=== PATIENT | female | born 2000 | race Caucasian/White ===

== ENCOUNTER 2020-07-14 21:53 | Emergency (ER) | payer OTHER ==
[2020-07-14] MEDS ORDERED: LIDOCAINE 1% 20 ML MDV ONE (22:50)
[2020-07-14 23:53] LABS: Absolute Lymphocytes (CBC) 1.7 K/uL (0.7-4.9); Basophils % 0.5 % (0-1.3); Hematocrit 37.9 % (36.0-45.0); Lymphocytes % 23.6 % (15.3-44.8); MPV 8.2 fL (7.6-11.3); RBC Red Blood Cell Count 4.07 M/uL (3.86-4.86)
[2020-07-15 00:20] LABS: Albumin 4.4 g/dL (3.4-5.0); Bilirubin Direct 0.1 mg/dL (0-0.2); Bilirubin Total 0.3 mg/dL (0.2-1.0); Potassium 3.7 mmol/L (3.5-5.1); Protein, Total 8.3 g/dL (6.4-8.2)
--- NOTE | 2020-07-15 00:55 | ER ---
Nurse's Notes [facility] Name: Danette Sosa Age: 19 yrs Sex: Female : 2000 Arrival Date: 07/14/2020 Time: 21:58 Bed 17 Private MD: Diagnosis: Right Breast Abscess Presentation: 07/14 22:04 Chief complaint: Patient states: I have a spot on the right side of my nipple piercing, sg states piercing was done about a month ago, reports today can feel swelling in the right armpit, denies drainage, reports having pain at the site. Coronavirus screen: Client denies travel out of the [place] in the last 14 days. At this time, the client does not indicate any symptoms associated with coronavirus-19. Ebola Screen: Patient negative for fever greater than or equal to 101.5 degrees Fahrenheit, and additional compatible Ebola Virus Disease symptoms Patient denies exposure to infectious person. Patient denies travel to an Ebola-affected area in the 21 days before illness onset. No symptoms or risks identified at this time. Initial Sepsis Screen: Does the patient meet any 2 criteria? No. Patient's initial sepsis screen is negative. Does the patient have a suspected source of infection? Yes: Skin breakdown/wound. Risk Assessment: Do you want to hurt yourself or someone else? Patient reports no desire to harm self or others. Onset of symptoms was July 14, 2020. Care prior to arrival: None. Transition of care: patient was not received from another setting of care. 22:04 Method Of Arrival: Ambulatory sg 22:04 Acuity: DANNY 4 sg Triage Assessment: 22:30 General: Appears in no apparent distress. comfortable, Behavior is calm, cooperative. 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 - Social history:: Smoking status: . Screenin:50 Abuse screen: Denies threats or abuse. Denies injuries from another. Nutritional mg2 screening: No deficits noted. Tuberculosis screening: No symptoms or risk factors identified. Fall Risk None identified. Assessment: 22:30 General: Appears in no apparent distress. comfortable, Behavior is calm, cooperative. mg2 Pain: Complains of pain in right breast and right armpit. Neuro: Level of Consciousness is awake, alert, obeys commands, Oriented to person, place, time, situation. Cardiovascular: Capillary refill < 3 seconds Patient's skin is warm and dry. Respiratory: Airway is patent Respiratory effort is even, unlabored, Respiratory pattern is regular, symmetrical. GI: No signs and/or symptoms were reported involving the gastrointestinal system. : No signs and/or symptoms were reported regarding the genitourinary system. EENT: No signs and/or symptoms were reported regarding the EENT system. Derm: Abscess located on right breast is quarter sized. Musculoskeletal: Circulation, motion, and sensation intact. Capillary refill < 3 seconds. Vital Signs: 22:04 BP 108 / 77; Pulse 88; Resp 16 S; Temp 97.2; Pulse Ox 100% on R/A; Weight 56.7 kg; sg Height 5 ft. 6 in. (167.64 cm); Pain 7/10; 22:30 BP 115 / 78; Pulse 81; Resp 18; Temp 98; Pulse Ox 100% on R/A; mg2 23:30 BP 118 / 78; Pulse 80; Resp 18; Temp 98; Pulse Ox 100% on R/A; mg2 07/15 00:30 BP 110 / 60; Pulse 80; Resp 18; Temp 98; Pulse Ox 100% on R/A; mg2 07/14 22:04 Body Mass Index 20.18 (56.70 kg, 167.64 cm) ED Course: 07/14 21:58 Patient arrived in ED. am2 22:04 Arm band placed on. sg 22:07 Triage completed. sg 22:09 Mesfin Patel MD is Attending Physician. 7 22:22 Wilmar Sullivan, JANELLE is Primary Nurse. mg2 22:50 Patient has correct armband on for positive identification. Door closed. mg2 22:50 No provider procedures requiring assistance completed. mg2 23:20 Inserted saline lock: 20 gauge in right antecubital area, using aseptic technique. mg2 Blood collected. 07/15 00:53 Chon Donato MD is Referral Physician. 7 01:06 IV discontinued, intact, bleeding controlled, No redness/swelling at site. Pressure mg2 dressing applied. Administered Medications: No medications were administered Outcome: 00:54 Discharge ordered by . mh7 01:06 Discharged to home ambulatory. mg2 01:06 Condition: good 01:06 Discharge instructions given to patient, Instructed on discharge instructions, follow up and referral plans. medication usage, Demonstrated understanding of instructions, follow-up care, medications, Prescriptions given X 2. 01:06 Patient left the ED. mg2 Signatures: Romel Dwyer RN RN Norma Marquez am2 Wilmar Sullivan RN RN mg2 Mesfin Patel MD MD 7 Corrections: (The following items were deleted from the chart) 07/14 23:39 22:50 Patient did not have IV access during this emergency room visit. mg2 mg2 07/15 02:12 07/14 00:30 BP 110 / 60; Pulse 80bpm; Resp 18bpm; Pulse Ox 100% RA; Temp 98F; mg2 mg2 07/15 02:07/14 20:40 General: Appears in no apparent distress. comfortable, Behavior is calm, mg2 cooperative, mg2 07/15 02:07/14 20:40 Pain: Complains of pain in right breast and right armpit mg2 mg2 07/15 02:07/14 20:40 Neuro: Level of Consciousness is awake, alert, obeys commands, Oriented to mg2 person, place, time, situation, mg2 07/15 02:07/14 20:40 Cardiovascular: Capillary refill < 3 seconds Patient's skin is warm and mg2 dry. mg2 07/15 02:07/14 20:40 Respiratory: Airway is patent Respiratory effort is even, unlabored, mg2 Respiratory pattern is regular, symmetrical, mg2 07/15 02:07/14 20:40 GI: No signs and/or symptoms were reported involving the gastrointestinal mg2 system. mg2 07/15 02:07/14 20:40 : No signs and/or symptoms were reported regarding the genitourinary mg2 system. mg2 07/15 02:07/14 20:40 EENT: No signs and/or symptoms were reported regarding the EENT system. mg2 mg2 07/15 02:07/14 20:40 Derm: Abscess located on right breast is quarter sized, mg2 mg2 07/15 02:07/14 20:40 Musculoskeletal: Circulation, motion, and sensation intact. Capillary mg2 refill < 3 seconds, mg2 07/15 02:07/14 21:30 Reassessment: Patient appears in no apparent distress at this time. Patient mg2 and/or family updated on plan of care and expected duration. Pain level reassessed. Patient is alert, oriented x 3, equal unlabored respirations, skin warm/dry/pink. mg2 07/15 02:07/14 22:30 Reassessment: Patient appears in no apparent distress at this time. Patient mg2 and/or family updated on plan of care and expected duration. Pain level reassessed. Patient is alert, oriented x 3, equal unlabored respirations, skin warm/dry/pink. mg2
--- NOTE | 2020-07-15 00:55 | EDPHYS ---
Physician Documentation [facility] Name: Danette Sosa Age: 19 yrs Sex: Female : 2000 Arrival Date: 07/14/2020 Time: 21:58 Bed 17 Private MD: ED Physician Mesfin Patel HPI: 07/14 23:41 This 19 yrs old Female presents to ER via Ambulatory with complaints of mh7 Breast Lump. 23:41 the patient presents with a swollen area of the right breast nipple. Description: mh7 erythematous, fluctuant, swollen. Onset: The symptoms/episode began/occurred 4 day(s) ago. Possible cause(s): unknown. Associated signs and symptoms: Pertinent negatives: discharge, drainage, foreign body sensation, fever, headache, nausea, shortness of breath, vomiting. Modifying factors: the symptoms are alleviated by nothing, the symptoms are aggravated by pressure, squeezing the lesion and expressing the contents, touching. Severity of symptoms: At their worst the symptoms were moderate, yesterday, in the emergency department the symptoms are unchanged. Patient states pain, swelling, redness to right breast nipple area for 4 days. States that she had nipple piercing placed one month ago but no complications. Denies any fever, nausea, vomiting, discharge.. 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 - Social history:: Smoking status: . ROS: 23:41 Constitutional: Negative for fever, chills, and weight loss, Eyes: Negative for injury, mh7 pain, redness, and discharge, ENT: Negative for injury, pain, and discharge, Neck: Negative for injury, pain, and swelling, Cardiovascular: Negative for chest pain, palpitations, and edema, Respiratory: Negative for shortness of breath, cough, wheezing, and pleuritic chest pain, Abdomen/GI: Negative for abdominal pain, nausea, vomiting, diarrhea, and constipation, Back: Negative for injury and pain, : Negative for injury, bleeding, discharge, and swelling, MS/Extremity: Negative for injury and deformity, Neuro: Negative for headache, weakness, numbness, tingling, and seizure, Psych: Negative for depression, anxiety, suicide ideation, homicidal ideation, and hallucinations, Allergy/Immunology: Negative for hives, rash, and allergies, Endocrine: Negative for neck swelling, polydipsia, polyuria, polyphagia, and marked weight changes, Hematologic/Lymphatic: Negative for swollen nodes, abnormal bleeding, and unusual bruising. Exam: 23:41 Constitutional: This is a well developed, well nourished patient who is awake, alert, mh7 and in no acute distress. Head/Face: Normocephalic, atraumatic. Eyes: Pupils equal round and reactive to light, extra-ocular motions intact. Lids and lashes normal. Conjunctiva and sclera are non-icteric and not injected. Cornea within normal limits. Periorbital areas with no swelling, redness, or edema. Neck: Trachea midline, no thyromegaly or masses palpated, and no cervical lymphadenopathy. Supple, full range of motion without nuchal rigidity, or vertebral point tenderness. No Meningismus. 23:41 Chest/axilla: Inspection: Palpation: is normal, Axilla: lymphadenopathy, that is small, in the left axilla. Vital Signs: 22:04 BP 108 / 77; Pulse 88; Resp 16 S; Temp 97.2; Pulse Ox 100% on R/A; Weight 56.7 kg; sg Height 5 ft. 6 in. (167.64 cm); Pain 7/10; 22:30 BP 115 / 78; Pulse 81; Resp 18; Temp 98; Pulse Ox 100% on R/A; mg2 23:30 BP 118 / 78; Pulse 80; Resp 18; Temp 98; Pulse Ox 100% on R/A; mg2 07/15 00:30 BP 110 / 60; Pulse 80; Resp 18; Temp 98; Pulse Ox 100% on R/A; mg2 07/14 22:04 Body Mass Index 20.18 (56.70 kg, 167.64 cm) MDM: 07/14 22:50 Patient medically screened. [facility] 07/15 00:51 Differential diagnosis: abscess, allergic reaction, cellulitis, insect bite. Data [facility] reviewed: vital signs, nurses notes, lab test result(s), CBC, electrolytes. Data interpreted: Pulse oximetry: on room air is 100 %. Interpretation: normal. Counseling: I had a detailed discussion with the patient and/or guardian regarding: the historical points, exam findings, and any diagnostic results supporting the discharge/admit diagnosis, lab results, the need for outpatient follow up, to return to the emergency department if symptoms worsen or persist or if there are any questions or concerns that arise at home. Physician consultation: Chon Donato MD regarding patient's condition, and will see patient in office. 07/14 22:55 Order name: CBC with Diff [facility] 07/14 22:55 Order name: Basic Metabolic Panel [facility] 07/14 22:55 Order name: LFT's [facility] 07/14 22:56 Order name: Blood Culture Adult (2) [facility] 07/14 22:56 Order name: CBC with Automated Diff; Complete Time: 00:10 EDMS 07/14 22:56 Order name: Basic Metabolic Panel; Complete Time: 00:46 EDMS 07/14 22:56 Order name: Saline Lock; Complete Time: 23:38 [facility] 07/14 22:56 Order name: Liver (Hepatic) Function; Complete Time: 00:46 EDMS Administered Medications: No medications were administered Disposition: 07/15/20 00:54 Discharged to Home. Impression: Right Breast Abscess. - Condition is Stable. - Discharge Instructions: Skin Abscess, [id number]. - Prescriptions for Keflex 500 mg Oral Capsule - take 1 capsule by ORAL route every 6 hours for 10 days; 40 capsule. Bactrim DS 800- 160 mg Oral Tablet - take 1 tablet by ORAL route every 12 hours for 10 days; 20 tablet. - Work release form, Medication Reconciliation Form, Thank You Letter, Antibiotic Education, Prescription Opioid Use form. - Follow up: Chon Donato MD; When: Tomorrow; Reason: Worsening of condition, Recheck today's complaints. - Problem is new. - Symptoms are unchanged. Signatures: [facility] Romel Dwyer RN RN Wilmar Sullivan RN RN mg2 Mesfin Patel MD MD mh7 Corrections: (The following items were deleted from the chart) 01:06 00:54 07/15/2020 00:54 Discharged to Home. Impression: Right Breast Abscess. Condition mg2 is Stable. Forms are Medication Reconciliation Form, Thank You Letter, Antibiotic Education, Prescription Opioid Use. Follow up: Dr. Chon Donato; When: Tomorrow; Reason: Worsening of condition, Recheck today's complaints. Problem is new. Symptoms are unchanged. mh7
[2020-07-15 03:47] VITALS: BP 108/77; TEMP 97.2; O2SAT 100
== END 2020-07-15 01:06 | disposition home or self-care (01) ==
LOC: SUPCPDRO 21:53 → ER 21:53
DX: N61.1 Abscess of the breast and nipple (principal)
CPT/HCPCS: 36415; 80048; 80076; 85025; 87040; 99283

== ENCOUNTER 2020-07-15 12:21 | Inpatient (IN) | payer OTHER ==
--- OUTSIDE RECORDS SUMMARY | 2020-07-15 12:39 | XMS REPORT | Continuity of Care Document ---
:[address] [facility] t Address [address] [place] [address] Dr. R[address]. [address] [place] [address] Care Team Providers Name Role Phone DR ADELINE CAREY Attending Clinician Unavailable DR ADELINE CAREY Admitting Clinician Unavailable Problems This patient has no known problems. Allergies, Adverse Reactions, Alerts This patient has no known allergies or adverse reactions. Social History Smoking Status Start Date Stop Date Source Former Smoker [place] [facility] Medications Ordered Filled Start Stop Current Ordering Indication Dosage Frequency Signature Comments Components Source Medication Medication Date Date Medication? Clinician (SIG) Name Name Provera 10 Provera 10 No 1 Q1D Provera 10 [place] mg tablet mg tablet mg tablet da Take 1 Take 1 Take 1 [facility] tablet tablet tablet al every day every day every day Health by oral by oral by oral Outrea c route for route for route for h 14 days. 14 days. 14 days. Pro gram Immunizations Ordered Immunization Filled Immunization Date Status Commen ts Source Name Name influenza, influenza, 2018-08-12 Completed [place] injectable, injectable, 16:43:17 [facility] quadrivalent quadrivalent Outreach P rogram Tdap Tdap 2018-07-02 Completed [place] 15:42:58 [facility] Progr am Vital Signs Vital Name Observation Time Observation Value Comments Source BP Diastolic 2020-05-09 00:00:00 71 mm[Hg] [place] [facility] Height 2020-05-09 00:00:00 67 [in_i] [place] [facility] BMI (Body Mass 2020-05-09 00:00:00 21 kg/m2 [place] [facility] Index) [facility] BP Systolic 2020-05-09 00:00:00 117 mm[Hg] [place] [facility] Body Weight 2020-05-09 00:00:00 134.4 [lb_av] [place] [facility] BP Diastolic 2019-10-07 00:00:00 70 mm[Hg] [facility] Height 2019-10-07 00:00:00 67 [in_i] [facility] BMI (Body Mass 2019-10-07 00:00:00 21 kg/m2 [place] [facility] Index) [facility] BP Systolic 2019-10-07 00:00:00 124 mm[Hg] [facility] [facility] Body Weight 2019-10-07 00:00:00 133.8 [lb_av] [place] [facility] Procedures Procedure Date / Time Performed Performing Clinician Sourmarkel e US, transvaginal 2020-05-09 00:00:00 [place] [facility] Delivery 2018-08-19 00:00:00 [place] [facility] Plan of Care Planned Activity Planned Date Details Comments Source Diagnostic Test 2020-05-09 test, [place] [facility] Pending 00:00:00 urine [code = Health Outreac h test, Program urine] Diagnostic Test 2020-05-09 bacterial vaginosis [place] [facility] Pending 00:00:00 + vaginitis panel, [facility] vaginal [code = Program bacterial vaginosis + vaginitis panel, vaginal] Diagnostic Test 2020-05-09 CBC w/ auto diff [place] [facility] Pending 00:00:00 [code = CBC w/ auto Health O utreach diff] Program Diagnostic Test 2020-05-09 TSH + free T4, [place] [facility] Pending 00:00:00 serum [code = TSH + Health O utreach free T4, serum] Program Diagnostic Test 2020-05-09 testosterone, free [place] [facility] Pending 00:00:00 + total, serum Health Outrea ch [code = Program testosterone, free + total, serum] Diagnostic Test 2020-05-09 insulin, serum [place] [facility] Pending 00:00:00 [code = insulin, Health Outr each serum] Program Future Appointment 2020-10-07 Mayelin Maldonado, [address] [place] [facility] 00:00:00 Ritchiee F N; , [place] [address] Program Encounters Start End Encounter Admission Attending Care Care Encounter Source Date/Time Date/Time Type Type Clinicians Facility Department ID 2020-05-09 2020-05-09 Mayelin SIMON [place] - [id number] [facility] 00:00:00 00:00:00 Obdulia Rodriguez, [facility] N[facility]ATH: [address] [facility] [address], 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 2018-08-18 2018-08-21 [facility] 1000 [id number] [place] 18:45:00 13:10:00 JOSSE [facility] Results Test Description Test Time Test Comments Results Result Comments Source CBC (INCLUDES AUTOMATED DIFFERENTIAL)* 2018-08-20 06:58:00 Test Item Value Reference Range Interpretation Comme nts WBC (test code = WBC) 11.9 10\S\3/uL 4.5-13.0 RBC (test code = RBC) 3.05 10\S\6/uL 4.30-5.70 L HGB (test code = HBG) 10.2 g/dL 12.0-15.5 L HCT (test code = HCT) 29.3 % 35.0-44.0 L MCV (test code = MCV) 96.1 fL 81.0-99.0 MCH (test code = MCH) 33.4 pg 27.0-31.0 H MCHC (test code = MCHC) 34.8 g/dL 32.0-36.0 RDW (test code = RDW) 13.3 % 11.5-14.5 PLT (test code = PLT) 182 10\S\3/uL 130-400 MPV (test code = MPV) 10.1 fL 9.4-12.4 NEUTROP # (test code = NE#) 10.2 10\S\3/uL 1.6-8.0 H LYMPH # (test code = LY#) 0.8 10\S\3/uL 1.1-3.5 L MONOCYTE # (test code = MO#) 0.7 10\S\3/uL 0.0-1.1 EOSINOPH # (test code = EO#) 0.0 10\S\3/uL 0.0-0.7 BASOPHIL # (test code = BA#) 0.0 10\S\3/uL 0.0-0.3 IG # (test code = IG#) 0.05 10\S\3/uL 0.00-0.06 NRBC # (test code = NRBC#) 0.00 10\S\3/uL 0.00-0.01 NEUTROPH % (test code = NE%) 86.3 % 35.0-73.0 H LYMPH % (test code = LY%) 6.8 % 20.0-55.0 L MONO % (test code = MO%) 6.2 % 2.5-10.0 EOSINOPH % (test code = EO%) 0.1 % 0.0-5.0 BASOPHIL % (test code = BA%) 0.2 % 0.0-2.0 IG % (test code = IG%) 0.4 % 0.0-0.8 NRBC% (test code = NRBC%) 0.0 % 0.0-0.2 MANDIFF (test code = WMDIFF) NO NO RBC MORPH (test code = WRBCMOR) NORMAL SYPHILIS SCREENING WW2018-08-19 05:57:00 Test Item Value Reference Range Interpretation Comments T PALLIDUM AB (test NON-REACTIVE NON-REACTIVE code = SYPHINT) SYPHC (test code = RPR test has been SYPHC) updated to Treponemal Immunoassay. Interpretation of results is similar RUBELLA AB IGG WW2018-08-19 05:57:00 Test Item Value Reference Range Interpretation Comments RUB AB IGG INTERP (test code = IMMUNE NON-IMMUNE A RBABINT) HIV *WW*2018-08-19 05:31:00 Test Item Value Reference Range Interpretation Comments HIV-1,2 and p24 (test code = NON-REACTIVE NON-REACTIVE CHIV) HEPATITIS B SURFACE ANTIGEN *WW*2018-08-19 05:26:00 Test Item Value Reference Range Interpretation Comments HBSAG (test code = HBSAG) NON-REACTIVE NON-REACTIVE CBC (INCLUDES AUTOMATED DIFFERENTIAL)*[id number] 20:24:00 Test Item Value Reference Range Interpretation Comments WBC (test code = WBC) 11.1 10\S\3/uL 4.5-13.0 RBC (test code = RBC) 3.86 10\S\6/uL 4.30-5.70 L HGB (test code = HBG) 12.7 g/dL 12.0-15.5 HCT (test code = HCT) 36.4 % 35.0-44.0 MCV (test code = MCV) 94.3 fL 81.0-99.0 MCH (test code = MCH) 32.9 pg 27.0-31.0 H MCHC (test code = MCHC) 34.9 g/dL 32.0-36.0 RDW (test code = RDW) 12.9 % 11.5-14.5 PLT (test code = PLT) 235 10\S\3/uL 130-400 MPV (test code = MPV) 10.0 fL 9.4-12.4 NEUTROP # (test code = NE#) 8.5 10\S\3/uL 1.6-8.0 H LYMPH # (test code = LY#) 1.7 10\S\3/uL 1.1-3.5 MONOCYTE # (test code = MO#) 0.7 10\S\3/uL 0.0-1.1 EOSINOPH # (test code = EO#) 0.1 10\S\3/uL 0.0-0.7 BASOPHIL # (test code = BA#) 0.0 10\S\3/uL 0.0-0.3 IG # (test code = IG#) 0.06 10\S\3/uL 0.00-0.06 NRBC # (test code = NRBC#) 0.00 10\S\3/uL 0.00-0.01 NEUTROPH % (test code = NE%) 77.0 % 35.0-73.0 H LYMPH % (test code = LY%) 15.3 % 20.0-55.0 L MONO % (test code = MO%) 6.2 % 2.5-10.0 EOSINOPH % (test code = EO%) 0.7 % 0.0-5.0 BASOPHIL % (test code = BA%) 0.3 % 0.0-2.0 IG % (test code = IG%) 0.5 % 0.0-0.8 NRBC% (test code = NRBC%) 0.0 % 0.0-0.2 MANDIFF (test code = WMDIFF) NO NO RBC MORPH (test code = NORMAL WRBCMOR)
--- OUTSIDE RECORDS SUMMARY | 2020-07-15 12:39 | XMS REPORT | Encounter Summary ---
:2000 Author Reason for Visit problem visit Instructions 1. Abnormal uterine bleeding test, urine bacterial vaginosis + vagi nitis panel, vaginal US, transvaginal CBC w/ auto diff TSH + free T4, serum testosterone, free + total , serum insulin, serum Provera 10 mg tablet Discussion Note Pelvic exam performed. Nuswab obtai aditi. Revd possible causes of DUB. Will drawn labs today and also order TVUS. iN HOUSE upt neg. Will send script for Provera 10 mg 1 po qd x 14 days. Will notify patient w ith results and poc. RTC prn. ml Patient educational handouts: No information available. Plan of Care Reminders Provider Appointments [facility] on or around Sc jeremy Obdulia Exam 10/07/2020 JORDAN Maldonado Lab 05/09/2020 [facility] [employer] [facility] Test, Urine Bacterial 05/09/2020 [facility] Vaginosis + Vaginitis Panel, Vaginal CBC W/ Auto 05/09/2020 [facility] Diff TSH + Free T4, 05/09/2020 [facility] Serum Testosterone, 05/09/2020 [facility] Free + Total, Serum Insulin, Serum 05/09/2020 [facility] Referral None recorded. Procedures None recorded. Surgeries None recorded. Imaging US, 05/09/2020 [facility] (Scheduli ng) Medications Name Start Date Provera 10 mg tablet Take 1 tablet every day by oral route for 14 days. Medications Administered None recorded. Vitals Height Weight BMI Blood Pressure 5 ft 7 in 134.4 lbs 21 kg/m2 117/71 mm[Hg] Results Lab Results None recorded. 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 History of Present Illness Abnormal Bleeding Reported By: Patient HPI: Onset/Timing: irregular. Robin lity: moderate Note: <p>Patient is 19 yo female in c/o vaginal bleeding since April 26. States occasional blood clots. States periods have always been regular and normal flow. Is not on any BC at this time. Neg PMH. Last pap- 2018. ml</p> Review of Systems None recorded. Physical Exam Brief Pelvic Exam Reported By: Patient Skin: Appearance: no rashes, no le sions Female Genitalia: Vulva: no masses, no atrophy , no lesions. Vagina: no tenderness, no erythema, no abnormal vagina l discharge, no vesicle(s) or ulcers, no cystocele, no rectocele, normal atrophy; blood noted in vault. ml. Cervix: grossly normal, no discharge, no cervical motion tenderness. Uterus: normal s ize, normal shape, midline, no uterine prolapse, mobile, non-tender . Bladder/Urethra: normal meatus, no urethral discharge, no ureth ral mass, bladder non distended. Adnexa/Parametria: no parame trial tenderness, no parametrial mass, no adnexal tenderness, no ov gerardo mass
[2020-07-15] MEDS ORDERED: ONDANSETRON 4 MG/2 ML VIAL IV PRN (13:09)
[2020-07-15 13:16] VITALS: BMI 20.5
--- NOTE | 2020-07-15 14:38 | P.HP ---
Certification for Inpatient Patient admitted to: Inpatient With expected LOS: >2 Midnights Patient will require the following post-hospital care: None Practitioner: I am a practitioner with admitting privileges, knowledge of patient current condition, hospital course, and medical plan of care. Services: Services provided to patient in accordance with Admission requirements found in Title 42 Section 412.3 of the Code of Federal Regulations Patient History Date of Service: 07/15/20 Primary Care Provider: Shelby Taylor Reason for admission: Breast abcess History of Present Illness: Patient is a pleasant young woman who establish care today She had a piercing of her right breath 2 months ago. She started having pain and swellling. She had a large abcess forming and the patient was having chilled. she went to the ER yesterday. Had a normal wbc of 7.4 She was started on antibiotics and told to follow up with a surgeon. However as she needed a referral she needed a local PCP and was referred to us. She was Examed by Mr Courtney Taylor. She called me into the room The patient had a 2 cm stent just lateral to the nipple. She had not picked up the antibiotics. Considering the size of the abcess. I felt it better to admit the patient for incison and drainage. Allergies No Known Allergies Allergy (Verified 07/15/20 13:21) Home Medications: NK [No Home Meds] 07/15/20 - Past Medical/Surgical History Has patient received pneumonia vaccine in the past: Yes Review of Systems 10-point ROS is otherwise unremarkable General: Chills Integumentary: Other (abcess of the right nipple) Physical Examination - Vital Signs Temperature: 97.7 F Blood Pressure: 118/70 Pulse: 99 Respirations: 16 Pulse Ox (%): 99 - Physical Exam General: Alert, In no apparent distress HEENT: Atraumatic, PERRLA, Mucous membr. moist/pink, EOMI, Sclerae nonicteric Neck: Supple, 2+ carotid pulse no bruit, No LAD, Without JVD or thyroid abnormality Respiratory: Clear to auscultation bilaterally, Normal air movement Cardiovascular: Regular rate/rhythm, Normal S1 S2 Gastrointestinal: Normal bowel sounds, No tenderness Musculoskeletal: No tenderness Integumentary: No rashes, Tenderness/swelling (of the right nipple, lateral areolar) Neurological: Normal gait, Normal speech, Normal strength at 5/5 x4 extr, Normal tone, Normal affect Lymphatics: Axilla lymphadenopathy (right axilla) - Studies Laboratory Data (last 24 hrs) 07/15/20 13:30: Sodium Cancelled, Potassium Cancelled, BUN Cancelled, Creatinine Cancelled, Glucose Cancelled 07/15/20 13:10: PT Cancelled, INR Cancelled Assessment and Plan - Problems (Diagnosis) (1) Breast abscess of female Current Visit: Yes Status: Acute Plan: admit to the hospital. Will start the patient on iv fluids and vancomycin as I am worried about MRSA. Dr. Thornton will take the patient to the OR in the morning. Will check coagulation studies and test. Will need wound cultures and the blood cultures taken yesterday in the ER to decide which antibiotic to keep the patient on for discharge Most likely will need to stay for at least 48 hours for the cultures to return Discharge Plan: Home Plan to discharge in: 48 Hours - Advance Directives Does patient have a Living Will: No Does patient have a Durable POA for Healthcare: No - Code Status/Comfort Care Code Status Assessed: No Code Status: Full Code Physician Review: Patient Assessed, Agree with Above Assessment and Plan Critical Care: No Time Spent Managing Pts Care (In Minutes): 70
[2020-07-15] MEDS: TRAMADOL 37.5mg/APAP 325mg PER TAB PO SCH ×2 (14:56→20:29)
[2020-07-15] MEDS: NA CHLORIDE 0.9% 1,000 ML IV SCH (14:56)
[2020-07-15 15:15] LABS: Protime INR 1.08
[2020-07-15 15:19] LABS: Potassium 4.9 mmol/L (3.5-5.1)
[2020-07-15] MEDS: VANCOMYCIN/NS 1 gm 1 GM/250 ML BAG IVPB SCH (15:24)
[2020-07-15] MEDS: ENOXAPARIN 40 MG/0.4 ML SQ SCH (16:55)
[2020-07-15] MEDS ORDERED: clonazePAM 1 MG TAB PO PRN (17:33)
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
[2020-07-15] MEDS: BUPROPION HCL XL 150 MG TAB PO SCH (20:29)
[2020-07-15] MEDS ORDERED: BUPROPRION HCL S.R. 150MG TAB PO SCH (21:00)
[2020-07-16] MEDS: VANCOMYCIN/NS 1 gm 1 GM/250 ML BAG IVPB SCH ×2 (01:27→13:51)
[2020-07-16] MEDS: TRAMADOL 37.5mg/APAP 325mg PER TAB PO SCH ×4 (01:27→18:44)
[2020-07-16] MEDS: NA CHLORIDE 0.9% 1,000 ML IV SCH ×2 (05:18→15:26)
[2020-07-16 06:21] LABS: Absolute Lymphocytes (CBC) 1.6 K/uL (0.7-4.9); Basophils % 0.4 % (0-1.3); Hematocrit 34.9 % (36.0-45.0); Lymphocytes % 22.7 % (15.3-44.8); MPV 7.7 fL (7.6-11.3); RBC Red Blood Cell Count 3.74 M/uL (3.86-4.86)
[2020-07-16] MEDS ORDERED: clonazePAM 0.5 MG TAB PO PRN (08:56)
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
[2020-07-16] MEDS ORDERED: propofoL 200 MG/20 ML VIAL IV ONE (12:22)
[2020-07-16] MEDS ORDERED: LIDOCAINE 2% MPF 5 ML VIAL ONE (12:23)
[2020-07-16] MEDS ORDERED: FENTANYL CITR 100 MCG/2 ML ONE (12:23)
[2020-07-16] MEDS ORDERED: BUPIVACAINE 0.25% PF 10 ML VIAL ONE (12:27)
[2020-07-16] MEDS: BUPIVACA 0.25%/EPI 0.0005%/PF 30 ML VIAL ONE ×2 (12:53→12:56)
[2020-07-16] MEDS ORDERED: KETOROLAC 30 MG/ML INJ ONE (12:55)
[2020-07-16] MEDS ORDERED: dexAMETHasone 10 MG/ML VIAL ONE (12:55)
--- NOTE | 2020-07-16 13:03 | P.OP ---
Preoperative diagnosis: Right Breast Retroaerolar Abscess Postoperative diagnosis: Right Breast Retroaerolar Abscess Primary procedure: Incision & Drainage of Right Breast Retroaerolar Abscess Secondary procedure: Debridement of Necrotic Tissue Anesthesia: GETA + Local Estimated blood loss: <5c Specimen: Cultures and Debridement Tissue Findings: multiloculated abscess ~4cm round Complications: None Transferred to: Recovery Room Condition: Good
--- NOTE | 2020-07-16 13:29 | OP ---
Date of Procedure: 07/16/2020 Surgeon: Monster Thornton MD, Preoperative Diagnosis: Right breast retroareolar abscess. Postoperative Diagnosis: Right breast retroareolar abscess. Procedure Performed: 1.Incision and drainage, right breast retroareolar abscess. 2.Excisional debridement of necrotic tissue. Anesthesia: General endotracheal plus local with 0.25% Marcaine with epinephrine. Estimated Blood Loss: Less than 5 mL. Specimen: Cultures and debridement tissues. Findings: Multiloculated abscess approximately 4 cm round in the retroareolar position on the latera l aspect slightly listing in that direction. Complications: None. Transferred to recovery room in good condition. Procedure In Detail: After informed consent was obtained, the patient was brought to the operating r oom, prepped and draped in the usual sterile fashion. After adequate anesthesia was achieved, a line ar incision of a radial type was made at the lateral aspect of the nipple-areolar complex extending t oward the nipple, immediately encountered with a large amount of purulent abscess. This was cultured for both aerobic, anaerobic, speciation at this time. The abscess cavity was opened in its entirety , digitized and the area was cleansed out at this point, breaking up multiple loculations, is approxi mately 4 cm round abscess in this position. Necrotic nipple-areolar tissue was debrided sharply usin g tenotomy scissors. The area was copiously irrigated multiple times and then hemostasis is achieved with electrocautery. It was copiously irrigated 1 last time, dried and packed with quarter-inch iod oform packing. Sterile dressing was placed over top. The patient tolerated the procedure well witho ut evidence of complication, and transferred to PACU in good condition. All counts were correct at t he end of the case. TK/MODL Voice ID: [id number] Report ID: [id number]
--- NOTE | 2020-07-16 14:09 | CON ---
Date of Consultation: 07/15/2020 Brief History Of Present Illness: The patient is a pleasant young woman who presents to the hospital with complaints of right breast abscess. She had a right breast nipple piercing approximately 2 mon ths ago and did not initially notice any issues with this. However, she noted significant increased swelling, pain, tenderness to the right nipple and areolar complex over the past several days. It go t progressively worse and was not responsive to cleansing. She did not take her piercing out as it w as too tender and painful to try to attempt so. She has never had similar episodes before in the [facility] t. No sick contacts. No recent travel. She went to see Dr. Maloney in his clinic who determined she needed to be admitted for IV antibiotics and my consultation for wound care and surgical intervention . Past Medical History: Negative. Past Surgical History: Negative. Allergies: NO KNOWN DRUG ALLERGIES. Medications: None. Social History: She denies smoking or recreational drug use. She drinks alcohol intermittently. 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 Review of Systems: Ten-point review of systems other than HPI, denies. Physical Examination: Vital Signs: At the time of examination, her BMI is 20.5. Her blood pressure was 108/63, pulse 74, respiratory rate 16, temperature 98.1. General: She is awake, alert, oriented. Psychiatric: She is appropriate, conversive. HEENT: She is normocephalic. Sclerae anicteric. Mucous membranes are moist. Oropharynx clear. Neck: Supple. No JVD. Chest: Normal expansion and excursion. Focused examination of the chest area, she has bilateral nipple piercings with a right areolar and re tro area areolar abscess. It is fluctuant, tender to palpation. There are some cellulitic changes e xtending beyond the nipple-areolar complex. There is a piercing in place, which I have removed. The re is no drainage at this point. The area is at the approximately the lateral aspect of the breast i n the retroareolar position. On palpation of the axilla, I feel a large tender dominant rubbery soft , mobile lymph node in the right axilla likely reactive by examination. Abdomen: Soft. Extremities: No clubbing, cyanosis, edema. Skin: Warm and dry. Laboratory Data: Reveals a white blood cell count of 7.0, hemoglobin 12.0, hematocrit 34.9, platelet count 245, neutrophils 65%. Her PT is 12.7, INR 1.08, PTT 29.5. Sodium 141, potassium 4.9, chlorid e 109, carbon dioxide 28, BUN 8, creatinine 0.8, glucose is 84. Urine test was negative. She did not have any imaging. Assessment And Plan: This is a 19-year-old female who comes in with a right nipple-areolar complex a bscess. 1.IV fluid hydration. 2.Antibiotic coverage. 3.I have explained risks, benefits, and alternatives of incision and drainage of this right breast a bscess, including but not limited to bleeding, infection, damage to surrounding tissue, need for furt her operative procedures and numbness and nerve injury to the nipple-areolar complex and difficulty w ith sensation going forward. The patient agrees to proceed as indicated. All questions answered. Thank you for this interesting consult. JANETT/DANIEL Voice ID: [id number] Report ID: [id number]
[2020-07-16] MEDS: ENOXAPARIN 40 MG/0.4 ML SQ SCH (16:15)
[2020-07-16] MEDS ORDERED: MORPHINE 2 MG/ML SYR IV PRN (18:32)
[2020-07-16] MEDS: BUPROPION HCL XL 150 MG TAB PO SCH (20:00)
[2020-07-17] MEDS: TRAMADOL 37.5mg/APAP 325mg PER TAB PO SCH ×3 (00:17→12:00)
[2020-07-17] MEDS: VANCOMYCIN/NS 1 gm 1 GM/250 ML BAG IVPB SCH (01:28)
[2020-07-17 05:48] LABS: Absolute Lymphocytes (CBC) 0.9 K/uL (0.7-4.9); Basophils % 0.1 % (0-1.3); Hematocrit 33.1 % (36.0-45.0); Lymphocytes % 8.7 % (15.3-44.8); MPV 7.8 fL (7.6-11.3); RBC Red Blood Cell Count 3.59 M/uL (3.86-4.86)
[2020-07-17] MEDS: NA CHLORIDE 0.9% 1,000 ML IV SCH ×2 (06:00→08:38)
[2020-07-17 08:30] VITALS: TEMP 98
--- NOTE | 2020-07-17 10:08 | P.DS ---
Admission Date: 07/15/20 Discharge Date: 07/17/20 Primary Care Provider: Shelby Taylor Disposition: ROUTINE DISCHARGE Discharge Condition: GOOD Reason for Admission: Breast abcess - Problems (1) Breast abscess of female Current Visit: Yes Status: Acute (2) Anxiety Current Visit: Yes Status: Acute Brief History of Present Illness: Patient is a pleasant young woman who establish care today She had a piercing of her right breath 2 months ago. She started having pain and swellling. She had a large abcess forming and the patient was having chilled. she went to the ER yesterday. Had a normal wbc of 7.4 She was started on antibiotics and told to follow up with a surgeon. However as she needed a referral she needed a local PCP and was referred to us. She was Examed by Courtney Brandon. She called me into the room The patient had a 2 cm stent just lateral to the nipple. She had not picked up the antibiotics. Considering the size of the abcess. I felt it better to admit the patient for incison and drainage. Hospital Course: Lia was admitted for a breast abcess. She had I&D with Dr. Thornton. She is doing well. GM +ve cocci coagulase postive. The patient is doing well this morning. Will discharge her home. Follow up with Mrs Taylor and [facility] Vital Signs/Physical Exam: Temp Pulse Resp BP Pulse Ox 98 F 76 20 84/40 L 98 07/17/20 08:00 07/17/20 08:00 07/17/20 08:00 07/17/20 08:00 07/17/20 08:00 General: Alert, In no apparent distress HEENT: Atraumatic, PERRLA, EOMI Neck: Supple, JVD not distended Respiratory: Clear to auscultation bilaterally, Normal air movement Cardiovascular: Regular rate/rhythm, Normal S1 S2 Gastrointestinal: Normal bowel sounds, No tenderness Musculoskeletal: No tenderness Integumentary: No rashes Neurological: Normal speech, Normal tone, Normal affect Lymphatics: No axilla or inguinal lymphadenopathy Laboratory Data at Discharge: WBC 10.4 K/uL (4.3-10.9) D 07/17/20 05:33 Hgb 11.6 g/dL (12.0-15.0) L 07/17/20 05:33 Hct 33.1 % (36.0-45.0) L 07/17/20 05:33 Plt Count 227 K/uL (152-406) 07/17/20 05:33 PT 12.7 SECONDS (9.5-12.5) H 07/15/20 13:58 INR 1.08 07/15/20 13:58 APTT 29.5 SECONDS (24.3-36.9) 07/15/20 13:58 Sodium 141 mmol/L (136-145) 07/15/20 13:58 Potassium 4.9 mmol/L (3.5-5.1) 07/15/20 13:58 BUN 8 mg/dL (7-18) 07/15/20 13:58 Creatinine 0.81 mg/dL (0.55-1.3) 07/15/20 13:58 Glucose 84 mg/dL (74-106) 07/15/20 13:58 Home Medications: Acetaminophen 500 mg PO QID #60 tablet 07/17/20 Bupropion *Xl* [Wellbutrin XL*] 150 mg PO BEDTIME #30 tab 07/17/20 Diclofenac Sodium [Voltaren] 75 mg PO BID PRN 7 Days #30 tablet. 07/17/20 Doxycycline Monohydrate 100 mg PO BID 7 Days #14 tablet 07/17/20 Smz./Tmp. [Bactrim Ds 800 MG/160 MG] 1 tab PO BID 7 Days #14 tab 07/17/20 Tramadol HCl [Ultram] 50 mg PO TID PRN #20 tablet 07/17/20 New Medications: Acetaminophen 500 mg PO QID #60 tablet Smz./Tmp. [Bactrim Ds 800 MG/160 MG] 1 tab PO BID 7 Days #14 tab Doxycycline Monohydrate 100 mg PO BID 7 Days #14 tablet Tramadol HCl [Ultram] 50 mg PO TID PRN #20 tablet PRN Reason: Pain Scale 8-10 (Severe) Diclofenac Sodium [Voltaren] 75 mg PO BID PRN 7 Days #30 tablet. PRN Reason: Pain Scale 5-7 (Moderate) Bupropion *Xl* [Wellbutrin XL*] 150 mg PO BEDTIME #30 tab Patient Discharge Instructions: - See [facility] wound care Instructions Diet: Regular Activity: Ad elizabeth Followup: Monster Thornton MD [ACTIVE - CAN ADMIT] - Shelby Taylor FNP [facility] [ALLIED HEALTH PROFESSIONAL] - 1 Week Time spent managing pt's care (in minutes): 35
[2020-07-17 10:19] VITALS: O2SAT 98
[2020-07-17] MEDS ORDERED: VANCOMYCIN 1.25 GM in NA CHLORIDE 0.9% 250 ML IVPB SCH (12:00)
[2020-07-17 13:01] VITALS: BP 110/58
== END 2020-07-17 12:07 | disposition home or self-care (01) | DRG 572 ==
LOC: 2ND 12:21 → OBSVTOIN 12:21
PROVIDERS: ADMIT Internal Medicine; ATTEND Internal Medicine
PROC: 0H9T0ZZ Drainage of Right Breast, Open Approach (ICD-10-PCS; 2020-07-16)
PROC: 0JB60ZZ Excision of Chest Subcutaneous Tissue and Fascia, Open Approach (ICD-10-PCS; principal; 2020-07-16 11:15)
DX: N61.1 Abscess of the breast and nipple (principal); F41.9 Anxiety disorder, unspecified
CPT/HCPCS: 36415; 80048; 80076; 80202; 81025; 85025; 85610; 85730; 87040; 87070; 87075; 87077; 87186; 87205; 88304; 99283; J1100; J1650; J2405; J2704; J3010; J3370; J7030; J7050; U0003

== ENCOUNTER 2023-07-08 18:46 | Emergency (ER) | payer OTHER, SELFPAY ==
--- OUTSIDE RECORDS SUMMARY | 2023-07-08 18:52 | XMS REPORT | Continuity of Care Document ---
:2000 Author Organization [facility] t Address [address] [place] [address] Care Team Providers Name Role Phone ESAU RIVERA Attending Clinician Unavailable ISSA Attending Clinician Unavailable KAILYN GALVAN Attending Clinician Unavailable Antonette_Austin Attending Clinician Unavailable ADELINE APODACA Attending Clinician Unavailable KRYSTYNA BROWN Attending Clinician Unavailable VANDANA VARGAS Attending Clinician Unavailable Anjum Attending Clinician Unavailable YUSUF ROBERTS Attending Clinician Unavailable GALDINO Attending Clinician Unavailable DR KAITLYN GILBERT Attending Clinician Un available BASSAM PALACIOS Attending Clinician Unavailable KAITLYN LEMONS Attending Clinician Unavailable MUSHTAQ SHAH Attending Clinician Unavailable ROBBIE Attending Clinician Unavailable JIM JOY Attending Clinician Unavailable GAL WILEY Attending Clinician Unavailable DR JOSSE CAREY Attending Clinician UnavailJOSSE Bethea Attending Clinician Unavailable MUSHTAQ KING Attending Clinician Unavailable MARIELY ERICKSON Attending Clinician Unavailable ELISHA BARRETO Attending Clinician Unavailable CUCO WILKINSON Attending Clinician Unavailable VERA BAIRES Attending Clinician Unavailable ZULY BLAIR Attending Clinician Unavailable LEX KUMAR Attending Clinician Unavailable PAULO_GERBER Admitting Clinician Unavailable Ayeni_Ibitoye_Olubu Admitting Clinician Unavailable Zuniga_S Admitting Clinician Unavailable JEROMEET Admitting Clinician Unavailable DR KAITLYN GILBERT Admitting Clinician Un available JOHNESDRAS Admitting Clinician Unavailable DR JOSSE CAREY Admitting Clinician Unavailabl e Payers Payer Name Policy Type Policy Number Effective Date Expiration Date S noe [facility] [place] [id number] 2018 COMM[facility] C[facility] - 00:00:00 STAR (MEDICAID HMO) [facility] [place] - [id number] STAR KIDS - EPSDT 00:00:00 (MEDICAID O) Problems Condition Condition Condition Status Onset Resolution Last Treating Co mments Source Name Details Category Date Date Treatment Clinician Date Acute Acute Problem Active [facility] pharyngiti Pharyngiti 06-01 da s s 00:00: Medical 00 Group Acute Acute Problem Active [facility] Acute Acute Problem Active [facility]icit[facility] Bacterial Bacterial Problem Active [facility]in[facility] Chlamydial Chlamydial Problem Active [facility] Miscarriag Miscarriag Problem Active [facility] Uterine Uterine Problem Active [facility] scar from Scar from da previous Previous [facility] surgery Surgery al affecting Affecting Heal th Outr eac h Program Mental Mental Problem Active [facility] disorder Disorder da in mother in Mother 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 complicati Complicati al ng ng Health Outr eac h Program Anemia in Anemia in Problem Active [facility] mother Mother da complicati Complicati [facility] ng ng al childbirth Childbirth He alth Outreac h Program Allergies, Adverse Reactions, Alerts Allergy Allergy Status Severity Reaction(s) Onset Inactive Treating Comm ents Source Name Type Date Date Clinician No Known DA Active [facility] Social History Smoking Status Start Date Stop Date Source Never Smoker [place] [facility] Medications Ordered Filled Start Stop Current Ordering Indication Dosage Frequency Signature Comments Components Source Medication Medication Date Date Medication? Clinician (SIG) Name Name aripiprazol aripiprazol No aripiprazo [facility] e 5 mg e 5 mg 3-14 le 5 mg da tablet tablet 00:00: tablet [facility] amoxicillin amoxicillin No 1 Q12H amoxicilli [facility] 875 mg 875 mg n 875 mg da tablet Take tablet Take tablet Medical 1 tablet 1 tablet Take 1 Group every 12 every 12 tablet hours by hours by every 12 oral route oral route hours by for 10 for 10 oral route days. days. for 10 days. Medrol Medrol No 1dose Medrol [facility] (Leoncio) 4 mg (Leoncio) 4 mg pk(s) (Leoncio) 4 mg da tablets in tablets in tablets in Medical a dose pack a dose pack a dose Group Take 1 dose Take 1 dose pack Take pk by oral pk by oral 1 dose pk route. route. by oral route. acetaminoph acetaminoph No acetaminop [facility] en 300 en 300 hen 300 da mg-codeine mg-codeine mg-codeine [facility] 30 mg 30 mg 30 mg al tablet TAKE tablet TAKE tablet Health 1 TABLET BY 1 TABLET BY TAKE 1 Outreac MOUTH EVERY MOUTH EVERY TABLET BY h 4 TO 6 4 TO 6 MOUTH Program HOURS HOURS EVERY 4 TO 6 HOURS amoxicillin amoxicillin No amoxicilli [facility] 875 mg 875 mg n 875 mg da tablet tablet tablet [facility] ascorbic ascorbic No 1 Q1D ascorbic [facility] acid acid acid da (vitamin C) (vitamin C) (vitamin [facility] 250 mg 250 mg C) 250 mg al tablet Take tablet Take tablet Health 1 tablet 1 tablet Take 1 Outre ac every day every day tablet h by oral by oral every day Prog [place] route for route for by oral 30 days. 30 days. route for 30 days. bupropion bupropion No bupropion [facility] HCl XL 150 HCl XL 150 HCl XL 150 da mg 24 hr mg 24 hr mg 24 hr Epi scop tablet, tablet, tablet, al extended extended extended Hea lth release release release Outrea c TAKE 1 TAKE 1 TAKE 1 h TABLET BY TABLET BY TABLET BY Program MOUTH AT MOUTH AT MOUTH AT BEDTIME BEDTIME BEDTIME buspirone buspirone No buspirone [facility] 7.5 mg 7.5 mg 7.5 mg da tablet TAKE tablet TAKE tablet [facility] 1 TABLET BY 1 TABLET BY TAKE 1 al MOUTH TWICE MOUTH TWICE TABLET BY Health DAILY DAILY MOUTH Outreac TWICE h DAILY Program Colace 100 Colace 100 No 1capsul Q1D Colace 100 [facility] mg capsule mg capsule e(s) mg capsule da Take 1 Take 1 Take 1 [facility] capsule capsule capsule al every day every day every day Health by oral by oral by oral Outrea c route as route as route as h needed for needed for needed for Program 30 days. 30 days. 30 days. Cymbalta 30 Cymbalta 30 No 1capsul Q1D Cymbalta [facility] mg mg e(s) 30 mg da capsule,del capsule,del capsule,de [facility] ayed ayed layed al release release release Health Take 1 Take 1 Take 1 Outreac capsule capsule capsule h every day every day every day Program by oral by oral by oral route with route with route with meals for meals for meals for 30 days. 30 days. 30 days. Diflucan Diflucan No Diflucan [facility] 150 mg 150 mg 150 mg da tablet take tablet take tablet [facility] 1 tablet 1 tablet take 1 al every other every other tablet Health day day every Outreac other day h Program EnLyte 1.5 EnLyte 1.5 No EnLyte 1.5 [facility] mg mg mg da iron-8.73 iron-8.73 iron-8.73 [facility] mg mg mg al capsule,imm capsule,imm capsule,[facility] ediate - ediate - [facility] [place] delay delay delay h release release release Progra m TAKE 1 TAKE 1 TAKE 1 CAPSULE BY CAPSULE BY CAPSULE BY MOUTH IN MOUTH IN MOUTH IN THE MORNING THE MORNING THE MORNING FeroSul 325 FeroSul 325 No FeroSul [facility] mg (65 mg mg (65 mg 325 mg (65 da iron) iron) mg iron) [facility] tablet TAKE tablet TAKE tablet al 1 TABLET BY 1 TABLET BY TAKE 1 Health MOUTH TWICE MOUTH TWICE TABLET BY Outreac DAILY DAILY MOUTH h TWICE Program DAILY Flagyl 500 Flagyl 500 No 1 BID Flagyl 500 [facility] mg tablet mg tablet mg tablet da Take 1 Take 1 Take 1 [facility] tablet tablet tablet al twice a day twice a day twice a Health by oral by oral day by Outreac route for 7 route for 7 oral route h days. days. for 7 Program days. ibuprofen ibuprofen No ibuprofen [facility] 600 mg 600 mg 600 mg da tablet TAKE tablet TAKE tablet [facility] 1 TABLET BY 1 TABLET BY TAKE 1 al MOUTH EVERY MOUTH EVERY TABLET BY Health 6 HOURS 6 HOURS MOUTH Ou treac NEEDED FOR NEEDED FOR EVERY 6 h 10 DAYS 10 DAYS HOURS Progr am NEEDED FOR 10 DAYS Keflex 750 Keflex 750 No 1capsul BID Keflex 750 [facility] mg capsule mg capsule e(s) mg capsule da Take 1 Take 1 Take 1 [facility] capsule capsule capsule al twice a day twice a day twice a Health by oral by oral day by Outreac route for 7 route for 7 oral route h days. days. for 7 Program days. methylpredn methylpredn No methylpred [facility] isolone 4 isolone 4 nisolone 4 da mg tablets mg tablets mg tablets [facility] in a dose in a dose in a dose al pack pack pack Health Outreac h Program nystatin nystatin No 5mL QID nystatin [facility] 100,000 100,000 100,000 da unit/mL unit/mL unit/mL [facility] p oral oral oral al suspension suspension suspension Health Take 5 mL 4 Take 5 mL 4 Take 5 mL Outreac times a day times a day 4 times a h by oral by oral day by Program route for 2 route for 2 oral route days. days. for 2 days. Senokot-S Senokot-S No 2 Q1D Senokot-S [facility] 8.6 mg-50 8.6 mg-50 8.6 mg-50 da mg tablet mg tablet mg tablet [facility] Take 2 Take 2 Take 2 al tablets tablets tablets Health every day every day every day Outreac by oral by oral by oral h route as route as route as Pro gram needed for needed for needed for 30 days. 30 days. 30 days. sertraline sertraline No sertraline [facility] 25 mg 25 mg 25 mg da tablet TAKE tablet TAKE tablet [facility] 1 TABLET BY 1 TABLET BY TAKE 1 al MOUTH ONCE MOUTH ONCE TABLET BY Health DAILY DAILY MOUTH ONCE Outreac DAILY h Program sulfamethox sulfamethox No sulfametho [facility] azole 800 azole 800 xazole 800 da mg-trimetho mg-trimetho mg-trimeth [facility] prim 160 mg prim 160 mg oprim 160 al tablet TAKE tablet TAKE mg tablet Health 1 TABLET BY 1 TABLET BY TAKE 1 Outreac MOUTH TWICE MOUTH TWICE TABLET BY h DAILY FOR DAILY FOR MOUTH Prog [place] FOOT INJURY FOOT INJURY TWICE DAILY FOR FOOT INJURY terconazole terconazole No terconazol [facility] 0.8 % 0.8 % e 0.8 % da vaginal vaginal vaginal [facility] cream cream cream al Insert 1 Insert 1 Insert 1 Hea lth applicatorf applicatorf applicator Outreac ul every ul every ful every h day by day by day by Program vaginal vaginal vaginal route for 3 route for 3 route for days. days. 3 days. Zoloft 50 Zoloft 50 No 1 Q1D Zoloft 50 [facility] mg tablet mg tablet mg tablet da Take 1 Take 1 Take 1 [facility] tablet tablet tablet al every day every day every day Health by oral by oral by oral Outrea c route for route for route for h 30 days. 30 days. 30 days. Pro gram Abilify 5 Abilify 5 No 1 Q1D Abilify 5 [facility] mg tablet mg tablet mg tablet da Take 1 Take 1 Take 1 [facility] tablet tablet tablet al every day every day every day Health by oral by oral by oral Outrea c route in route in route in h the evening the evening the P rogram for 30 for 30 evening days. days. for 30 days. acetaminoph acetaminoph No acetaminop [facility] en 300 en 300 hen 300 da mg-codeine mg-codeine mg-codeine [facility] 30 mg 30 mg 30 mg al tablet TAKE tablet TAKE tablet Health 1 TABLET BY 1 TABLET BY TAKE 1 Outreac MOUTH EVERY MOUTH EVERY TABLET BY h 4 TO 6 4 TO 6 MOUTH Program HOURS HOURS EVERY 4 TO 6 HOURS amoxicillin amoxicillin No amoxicilli [facility] 875 mg 875 mg n 875 mg da tablet tablet tablet [facility] ascorbic ascorbic No 1 Q1D ascorbic [facility] acid acid acid da (vitamin C) (vitamin C) (vitamin [facility] 250 mg 250 mg C) 250 mg al tablet Take tablet Take tablet Health 1 tablet 1 tablet Take 1 Outre ac every day every day tablet h by oral by oral every day [place]g [place] route for route for by oral 30 days. 30 days. route for 30 days. bupropion bupropion No bupropion [facility] HCl XL 150 HCl XL 150 HCl XL 150 da mg 24 hr mg 24 hr mg 24 hr Epi scop tablet, tablet, tablet, al extended extended extended Hea lth release release release Outrea c TAKE 1 TAKE 1 TAKE 1 h TABLET BY TABLET BY TABLET BY Program MOUTH AT MOUTH AT MOUTH AT BEDTIME BEDTIME BEDTIME buspirone buspirone No buspirone [facility] 7.5 mg 7.5 mg 7.5 mg da tablet TAKE tablet TAKE tablet [facility] 1 TABLET BY 1 TABLET BY TAKE 1 al MOUTH TWICE MOUTH TWICE TABLET BY Health DAILY DAILY MOUTH Outreac TWICE h DAILY Program Colace 100 Colace 100 No 1capsul Q1D Colace 100 [facility] mg capsule mg capsule e(s) mg capsule da Take 1 Take 1 Take 1 [facility] capsule capsule capsule al every day every day every day Health by oral by oral by oral Outrea c route as route as route as h needed for needed for needed for Program 30 days. 30 days. 30 days. Diflucan Diflucan No Diflucan [facility] 150 mg 150 mg 150 mg da tablet take tablet take tablet [facility] 1 tablet 1 tablet take 1 al every other every other tablet Health day day every Outreac other day h Program EnLyte 1.5 EnLyte 1.5 No EnLyte 1.5 [facility] mg mg mg da iron-8.73 iron-8.73 iron-8.73 [facility] mg mg mg al capsule,imm capsule,imm capsule,[facility] delay delay delay h release release release Progra m TAKE 1 TAKE 1 TAKE 1 CAPSULE BY CAPSULE BY CAPSULE BY MOUTH IN MOUTH IN MOUTH IN THE MORNING THE MORNING THE MORNING FeroSul 325 FeroSul 325 No FeroSul [facility] mg (65 mg mg (65 mg 325 mg (65 da iron) iron) mg iron) [facility] tablet TAKE tablet TAKE tablet al 1 TABLET BY 1 TABLET BY TAKE 1 Health MOUTH TWICE MOUTH TWICE TABLET BY Outreac DAILY DAILY MOUTH h TWICE Program DAILY Flagyl 500 Flagyl 500 No 1 BID Flagyl 500 [facility] mg tablet mg tablet mg tablet da Take 1 Take 1 Take 1 [facility] tablet tablet tablet al twice a day twice a day twice a Health by oral by oral day by Outreac route for 7 route for 7 oral route h days. days. for 7 Program days. ibuprofen ibuprofen No ibuprofen [facility] 600 mg 600 mg 600 mg da tablet TAKE tablet TAKE tablet [facility] 1 TABLET BY 1 TABLET BY TAKE 1 al MOUTH EVERY MOUTH EVERY TABLET BY Health 6 HOURS 6 HOURS MOUTH Ou tre[place] NEEDED FOR NEEDED FOR EVERY 6 h 10 DAYS 10 DAYS HOURS Progr am NEEDED FOR 10 DAYS Keflex 750 Keflex 750 No 1capsul BID Keflex 750 [facility] mg capsule mg capsule e(s) mg capsule da Take 1 Take 1 Take 1 [facility] capsule capsule capsule al twice a day twice a day twice a Health by oral by oral day by Outreac route for 7 route for 7 oral route h days. days. for 7 Program days. methylpredn methylpredn No methylpred [facility] isolone 4 isolone 4 nisolone 4 da mg tablets mg tablets mg tablets [facility] in a dose in a dose in a dose al pack pack pack Health Outreac h Program nystatin nystatin No 5mL QID nystatin [facility] 100,000 100,000 100,000 da unit/mL unit/mL unit/mL [facility] oral oral oral al suspension suspension suspension Health Take 5 mL 4 Take 5 mL 4 Take 5 mL Outreac times a day times a day 4 times a h by oral by oral day by Program route for 2 route for 2 oral route days. days. for 2 days. Senokot-S Senokot-S No 2 Q1D Senokot-S [facility] 8.6 mg-50 8.6 mg-50 8.6 mg-50 da mg tablet mg tablet mg tablet [facility] Take 2 Take 2 Take 2 al tablets tablets tablets Health every day every day every day Outreac by oral by oral by oral h route as route as route as Pro gram needed for needed for needed for 30 days. 30 days. 30 days. sertraline sertraline No sertraline [facility] 25 mg 25 mg 25 mg da tablet TAKE tablet TAKE tablet [facility] 1 TABLET BY 1 TABLET BY TAKE 1 al MOUTH ONCE MOUTH ONCE TABLET BY Health DAILY DAILY MOUTH ONCE Outreac DAILY h Program sulfamethox sulfamethox No sulfametho [facility] azole 800 azole 800 xazole 800 da mg-trimetho mg-trimetho mg-trimeth [facility] prim 160 mg prim 160 mg oprim 160 al tablet TAKE tablet TAKE mg tablet Health 1 TABLET BY 1 TABLET BY TAKE 1 Outreac MOUTH TWICE MOUTH TWICE TABLET BY h DAILY FOR DAILY FOR MOUTH Prog [place] FOOT INJURY FOOT INJURY TWICE DAILY FOR FOOT INJURY terconazole terconazole No terconazol [facility] 0.8 % 0.8 % e 0.8 % da vaginal vaginal vaginal [facility] cream cream cream al Insert 1 Insert 1 Insert 1 Hea lth applicatorf applicatorf applicator Outreac ul every ul every ful every h day by day by day by Program vaginal vaginal vaginal route for 3 route for 3 route for days. days. 3 days. Zoloft 50 Zoloft 50 No 1 Q1D Zoloft 50 [facility] mg tablet mg tablet mg tablet da Take 1 Take 1 Take 1 [facility] tablet tablet tablet al every day every day every day Health by oral by oral by oral Outrea c route for route for route for h 30 days. 30 days. 30 days. Pro gram Abilify 10 Abilify 10 No 1 Q1D Abilify 10 [facility] mg tablet mg tablet mg tablet da Take 1 Take 1 Take 1 [facility] tablet tablet tablet al every day every day every day Health by oral by oral by oral Outrea c route in route in route in h the morning the morning the P rogram for 30 for 30 morning days. days. for 30 days. acetaminoph acetaminoph No acetaminop [facility] en 300 en 300 hen 300 da mg-codeine mg-codeine mg-codeine [facility] 30 mg 30 mg 30 mg al tablet TAKE tablet TAKE tablet Health 1 TABLET BY 1 TABLET BY TAKE 1 Outreac MOUTH EVERY MOUTH EVERY TABLET BY h 4 TO 6 4 TO 6 MOUTH Program HOURS HOURS EVERY 4 TO 6 HOURS amoxicillin amoxicillin No amoxicilli [facility] 875 mg 875 mg n 875 mg da tablet tablet tablet [facility] aripiprazol aripiprazol No aripiprazo [facility] e 5 mg e 5 mg le 5 mg da tablet Take tablet Take tablet [facility] 1 tablet 1 tablet Take 1 al every day every day tablet Hea lth by oral by oral every day Outr eac route in route in by oral h the evening the evening route in Program for 30 for 30 the days. days. evening for 30 days. ascorbic ascorbic No 1 Q1D ascorbic [facility] acid acid acid da (vitamin C) (vitamin C) (vitamin [facility] 250 mg 250 mg C) 250 mg al tablet Take tablet Take tablet Health 1 tablet 1 tablet Take 1 Outre ac every day every day tablet h by oral by oral every day [place]g [place] route for route for by oral 30 days. 30 days. route for 30 days. bupropion bupropion No bupropion [facility] HCl XL 150 HCl XL 150 HCl XL 150 da mg 24 hr mg 24 hr mg 24 hr Epi scop tablet, tablet, tablet, al extended extended extended Hea lth release release release Outrea c TAKE 1 TAKE 1 TAKE 1 h TABLET BY TABLET BY TABLET BY Program MOUTH AT MOUTH AT MOUTH AT BEDTIME BEDTIME BEDTIME buspirone buspirone No buspirone [facility] 7.5 mg 7.5 mg 7.5 mg da tablet TAKE tablet TAKE tablet [facility] 1 TABLET BY 1 TABLET BY TAKE 1 al MOUTH TWICE MOUTH TWICE TABLET BY Health DAILY DAILY MOUTH Outreac TWICE h DAILY Program Colace 100 Colace 100 No 1capsul Q1D Colace 100 [facility] mg capsule mg capsule e(s) mg capsule da Take 1 Take 1 Take 1 [facility] capsule capsule capsule al every day every day every day Health by oral by oral by oral Outrea c route as route as route as h needed for needed for needed for Program 30 days. 30 days. 30 days. Diflucan Diflucan No Diflucan [facility] 150 mg 150 mg 150 mg da tablet take tablet take tablet [facility] 1 tablet 1 tablet take 1 al every other every other tablet Health day day every Outreac other day h Program EnLyte 1.5 EnLyte 1.5 No EnLyte 1.5 [facility] mg mg mg da iron-8.73 iron-8.73 iron-8.73 [facility] mg mg mg al capsule,imm capsule,imm capsule,[facility] ediate - ediate - [facility] [place] delay delay delay h release release release Progra m TAKE 1 TAKE 1 TAKE 1 CAPSULE BY CAPSULE BY CAPSULE BY MOUTH IN MOUTH IN MOUTH IN THE MORNING THE MORNING THE MORNING FeroSul 325 FeroSul 325 No FeroSul [facility] mg (65 mg mg (65 mg 325 mg (65 da iron) iron) mg iron) [facility] tablet TAKE tablet TAKE tablet al 1 TABLET BY 1 TABLET BY TAKE 1 Health MOUTH TWICE MOUTH TWICE TABLET BY Outreac DAILY DAILY MOUTH h TWICE Program DAILY Flagyl 500 Flagyl 500 No 1 BID Flagyl 500 [facility] mg tablet mg tablet mg tablet da Take 1 Take 1 Take 1 [facility] tablet tablet tablet al twice a day twice a day twice a Health by oral by oral day by Outreac route for 7 route for 7 oral route h days. days. for 7 Program days. ibuprofen ibuprofen No ibuprofen [facility] 600 mg 600 mg 600 mg da tablet TAKE tablet TAKE tablet [facility] 1 TABLET BY 1 TABLET BY TAKE 1 al MOUTH EVERY MOUTH EVERY TABLET BY Health 6 HOURS 6 HOURS MOUTH Ou treac NEEDED FOR NEEDED FOR EVERY 6 h 10 DAYS 10 DAYS HOURS Progr am NEEDED FOR 10 DAYS Keflex 750 Keflex 750 No 1capsul BID Keflex 750 [facility] mg capsule mg capsule e(s) mg capsule da Take 1 Take 1 Take 1 [facility] capsule capsule capsule al twice a day twice a day twice a Health by oral by oral day by Outreac route for 7 route for 7 oral route h days. days. for 7 Program days. methylpredn methylpredn No methylpred [facility] isolone 4 isolone 4 nisolone 4 da mg tablets mg tablets mg tablets [facility] in a dose in a dose in a dose al pack pack pack Health Outreac h Program nystatin nystatin No 5mL QID nystatin [facility] 100,000 100,000 100,000 da unit/mL unit/mL unit/mL [facility] oral oral oral al suspension suspension suspension Health Take 5 mL 4 Take 5 mL 4 Take 5 mL Outreac times a day times a day 4 times a h by oral by oral day by Program route for 2 route for 2 oral route days. days. for 2 days. Senokot-S Senokot-S No 2 Q1D Senokot-S [facility] 8.6 mg-50 8.6 mg-50 8.6 mg-50 da mg tablet mg tablet mg tablet [facility] Take 2 Take 2 Take 2 al tablets tablets tablets Health every day every day every day Outreac by oral by oral by oral h route as route as route as Pro gram needed for needed for needed for 30 days. 30 days. 30 days. sertraline sertraline No sertraline [facility] 25 mg 25 mg 25 mg da tablet TAKE tablet TAKE tablet [facility] 1 TABLET BY 1 TABLET BY TAKE 1 al MOUTH ONCE MOUTH ONCE TABLET BY Health DAILY DAILY MOUTH ONCE Outreac DAILY h Program sulfamethox sulfamethox No sulfametho [facility] azole 800 azole 800 xazole 800 da mg-trimetho mg-trimetho mg-trimeth [facility] prim 160 mg prim 160 mg oprim 160 al tablet TAKE tablet TAKE mg tablet Health 1 TABLET BY 1 TABLET BY TAKE 1 Outreac MOUTH TWICE MOUTH TWICE TABLET BY h DAILY FOR DAILY FOR MOUTH Prog [place] FOOT INJURY FOOT INJURY TWICE DAILY FOR FOOT INJURY terconazole terconazole No terconazol [facility] 0.8 % 0.8 % e 0.8 % da vaginal vaginal vaginal [facility] cream cream cream al Insert 1 Insert 1 Insert 1 Hea lth applicatorf applicatorf applicator Outreac ul every ul every ful every h day by day by day by Program vaginal vaginal vaginal route for 3 route for 3 route for days. days. 3 days. Zoloft 50 Zoloft 50 No 1 Q1D Zoloft 50 [facility] mg tablet mg tablet mg tablet da Take 1 Take 1 Take 1 [facility] tablet tablet tablet al every day every day every day Health by oral by oral by oral Outrea c route for route for route for h 30 days. 30 days. 30 days. Pro gram Abilify 10 Abilify 10 No 1 Q1D Abilify 10 [facility] mg tablet mg tablet mg tablet da Take 1 Take 1 Take 1 [facility] tablet tablet tablet al every day every day every day Health by oral by oral by oral Outrea c route in route in route in h the morning the morning the P rogram for 30 for 30 morning days. days. for 30 days. acetaminoph acetaminoph No acetaminop [facility] en 300 en 300 hen 300 da mg-codeine mg-codeine mg-codeine [facility] 30 mg 30 mg 30 mg al tablet TAKE tablet TAKE tablet Health 1 TABLET BY 1 TABLET BY TAKE 1 Outreac MOUTH EVERY MOUTH EVERY TABLET BY h 4 TO 6 4 TO 6 MOUTH Program HOURS HOURS EVERY 4 TO 6 HOURS amoxicillin amoxicillin No amoxicilli [facility] 875 mg 875 mg n 875 mg da tablet tablet tablet [facility] Program aripiprazol aripiprazol No aripiprazo [facility] e 5 mg e 5 mg le 5 mg da tablet Take tablet Take tablet [facility] 1 tablet 1 tablet Take 1 al every day every day tablet Hea lth by oral by oral every day Outr eac route in route in by oral h the evening the evening route in Program for 30 for 30 the days. days. evening for 30 days. ascorbic ascorbic No 1 Q1D ascorbic [facility] acid acid acid da (vitamin C) (vitamin C) (vitamin [facility] 250 mg 250 mg C) 250 mg al tablet Take tablet Take tablet Health 1 tablet 1 tablet Take 1 Outre ac every day every day tablet h by oral by oral every day Prog [place] route for route for by oral 30 days. 30 days. route for 30 days. bupropion bupropion No bupropion [facility] HCl XL 150 HCl XL 150 HCl XL 150 da mg 24 hr mg 24 hr mg 24 hr Epi scop tablet, tablet, tablet, al extended extended extended Hea lth release release release Outrea c TAKE 1 TAKE 1 TAKE 1 h TABLET BY TABLET BY TABLET BY Program MOUTH AT MOUTH AT MOUTH AT BEDTIME BEDTIME BEDTIME buspirone buspirone No buspirone [facility] 7.5 mg 7.5 mg 7.5 mg da tablet TAKE tablet TAKE tablet [facility] 1 TABLET BY 1 TABLET BY TAKE 1 al MOUTH TWICE MOUTH TWICE TABLET BY Health DAILY DAILY MOUTH Outreac TWICE h DAILY Program Colace 100 Colace 100 No 1capsul Q1D Colace 100 [facility] mg capsule mg capsule e(s) mg capsule da Take 1 Take 1 Take 1 [facility] capsule capsule capsule al every day every day every day Health by oral by oral by oral [facility] route as route as route as h needed for needed for needed for Program 30 days. 30 days. 30 days. Diflucan Diflucan No Diflucan [facility] 150 mg 150 mg 150 mg da tablet take tablet take tablet [facility] 1 tablet 1 tablet take 1 al every other every other tablet Health day day every [facility]re[facility] other day h Program EnLyte 1.5 EnLyte 1.5 No EnLyte 1.5 [place] mg mg mg da iron-8.73 iron-8.73 iron-8.73 [facility] mg mg mg al capsule,imm capsule,imm capsule,[facility] ediate - ediate - mediate - Ou [facility] delay delay delay h release release release Progra m TAKE 1 TAKE 1 TAKE 1 CAPSULE BY CAPSULE BY CAPSULE BY MOUTH IN MOUTH IN MOUTH IN THE MORNING THE MORNING THE MORNING FeroSul 325 FeroSul 325 No FeroSul [place] mg (65 mg mg (65 mg 325 mg (65 da iron) iron) mg iron) [facility] tablet TAKE tablet TAKE tablet al 1 TABLET BY 1 TABLET BY TAKE 1 Health MOUTH TWICE MOUTH TWICE TABLET BY Outreac DAILY DAILY MOUTH h TWICE Program DAILY Flagyl 500 Flagyl 500 No 1 BID Flagyl 500 [place] mg tablet mg tablet mg tablet da Take 1 Take 1 Take 1 [facility] tablet tablet tablet al twice a day twice a day twice a Health by oral by oral day by [facility]re[facility] route for 7 route for 7 oral route h days. days. for 7 Program days. ibuprofen ibuprofen No ibuprofen [place] 600 mg 600 mg 600 mg da tablet TAKE tablet TAKE tablet [facility] 1 TABLET BY 1 TABLET BY TAKE 1 al MOUTH EVERY MOUTH EVERY TABLET BY Health 6 HOURS 6 HOURS MOUTH Ou treac NEEDED FOR NEEDED FOR EVERY 6 h 10 DAYS 10 DAYS HOURS Progr am NEEDED FOR 10 DAYS Keflex 750 Keflex 750 No 1capsul BID Keflex 750 [place] mg capsule mg capsule e(s) mg capsule da Take 1 Take 1 Take 1 [facility] capsule capsule capsule al twice a day twice a day twice a Health by oral by oral day by [facility]re[facility] route for 7 route for 7 oral route h days. days. for 7 Program days. 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 days. for 2 days. Senokot-S Senokot-S No 2 Q1D Senokot-S [place] 8.6 mg-50 8.6 mg-50 8.6 mg-50 da mg tablet mg tablet mg tablet [facility] Take 2 Take 2 Take 2 al tablets tablets tablets Health every day every day every day Out[facility] by oral by oral by oral h route as route as route as Pro gram needed for needed for needed for 30 days. 30 days. 30 days. sertraline sertraline No sertraline [place] 25 mg 25 mg 25 mg da tablet TAKE tablet TAKE tablet [facility] 1 TABLET BY 1 TABLET BY TAKE 1 al MOUTH ONCE MOUTH ONCE TABLET BY Health DAILY DAILY MOUTH ONCE [facility] DAILY h Program sulfamethox sulfamethox No sulfametho [place] azole 800 azole 800 xazole 800 da mg-trimetho mg-trimetho mg-trimeth [facility] prim 160 mg prim 160 mg oprim 160 al tablet TAKE tablet TAKE mg tablet Health 1 TABLET BY 1 TABLET BY TAKE 1 [facility] MOUTH TWICE MOUTH TWICE TABLET BY h DAILY FOR DAILY FOR MOUTH Prog [place] ABSCESS ABSCESS TWICE DAILY FOR ABSCESS terconazole terconazole No terconazol [place] 0.8 % 0.8 % e 0.8 % da vaginal vaginal vaginal [facility] cream cream cream al Insert 1 Insert 1 Insert 1 Hea lth applicatorf applicatorf applicator [facility] ul every ul every ful every h day by day by day by Program vaginal vaginal vaginal route for 3 route for 3 route for days. days. 3 days. Zoloft 50 Zoloft 50 No 1 Q1D Zoloft 50 [place] mg tablet mg tablet mg tablet da Take 1 Take 1 Take 1 [facility] tablet tablet tablet al every day every day every day Health by oral by oral by oral [facility] route for route for route for h 30 days. 30 days. 30 days. Pro gram Abilify 15 Abilify 15 No 1 Q1D Abilify 15 [place] mg tablet mg tablet mg tablet da Take 1 Take 1 Take 1 [facility] tablet tablet tablet al every day every day every day Health by oral by oral by oral [facility] route with route with route with h meals for meals for meals for Program 30 days. 30 days. 30 days. Abilify 15 Abilify 15 No 1 Q1D Abilify 15 [place] mg tablet mg tablet mg tablet da Take 1 Take 1 Take 1 [facility] tablet tablet tablet al every day every day every day Health by oral by oral by oral [facility] route with route with route with h meals for meals for meals for Program 30 days. 30 days. 30 days. aripiprazol aripiprazol No aripiprazo [place] e 15 mg e 15 mg le 15 mg da tablet TAKE tablet TAKE tablet [facility] 1 TABLET BY 1 TABLET BY TAKE 1 al MOUTH ONCE MOUTH ONCE TABLET BY Health DAILY WITH DAILY WITH MOUTH ONCE [facility] MEALS FOR MEALS FOR DAILY WITH h 30 DAYS 30 DAYS MEALS FOR Prog [place] 30 DAYS clindamycin clindamycin No clindamyci [place] HCl 300 mg HCl 300 mg n HCl 300 da capsule capsule mg capsule [facility] TAKE 1 TAKE 1 TAKE 1 al CAPSULE BY CAPSULE BY CAPSULE BY Health MOUTH EVERY MOUTH EVERY MOUTH Outre[facility] 6 HOURS FOR 6 HOURS FOR EVERY 6 h INFECTION INFECTION HOURS FOR Program INFECTION ibuprofen ibuprofen No ibuprofen [place] 600 mg 600 mg 600 mg da tablet TAKE tablet TAKE tablet [facility] 1 TABLET BY 1 TABLET BY TAKE 1 al MOUTH EVERY MOUTH EVERY TABLET BY Health 6 HOURS 6 HOURS MOUTH Ou treac NEEDED FOR NEEDED FOR EVERY 6 h PAIN PAIN HOURS Program NEEDED FOR PAIN trazodone trazodone No 1 Q1D trazodone [place] 100 mg 100 mg 100 mg da tablet Take tablet Take tablet [facility] 1 tablet 1 tablet Take 1 al every day every day tablet Hea lth by oral by oral every day Outr eac route at route at by oral h bedtime for bedtime for route at Program 30 days. 30 days. bedtime for 30 days. Immunizations Ordered Immunization Filled Immunization Date Status Commen ts Source Name Name Tdap Tdap 2021-03-08 Completed [place] 00:00:[facility] Tdap Tdap 2021-03-08 Completed [place] 00[facility]00:[facility] Tdap Tdap 2021-03-08 Completed [place] 00:00:[facility] Tdap Tdap 2021-03-08 Completed [place] 00:00:[facility] Tdap Tdap 2021-03-08 Completed [place] 00:00:00 [facility] Tdap Tdap 2021-03-08 Completed [place] 00:00:00 [facility] Tdap Tdap 2021-03-08 Completed [place] 00:00:[facility] influenza, influenza, 2018-08-12 Completed [place] injectable, injectable, 16:43:17 [facility] quad[facility]alent quadrivalent [facility] reach Program influenza, influenza, 2018-08-12 Completed [place] injectable, injectable, 16:43:17 [facility] quadrivalent quadrivalent [facility] influenza, influenza, 2018-08-12 Completed [place] injectable, injectable, 16:43:17 [facility] quadrivalent quadrivalent [facility] influenza, influenza, 2018-08-12 Completed [place] injectable, injectable, 16:43:17 [facility] quadrivalent [facility]riv[facility] influenza, influenza, 2018-08-12 Completed [place] injectable, injectable, 16:43:17 [facility] quadrivalent quadrivalent [facility] influenza, influenza, 2018-08-12 Completed [place] injectable, injectable, 16:43:17 [facility]rivalent [facility]riv[facility] influenza, influenza, 2018-08-12 Completed [place] injectable, injectable, 16:43:17 [facility]alent [facility] Tdap Tdap 2018-07-02 Completed [place] 15:42:58 [facility] Tdap Tdap 2018-07-02 Completed [place] 15:42:58 [facility] Tdap Tdap 2018-07-02 Completed [place] 15:42:58 [facility] Tdap Tdap 2018-07-02 Completed [place] 15:42:58 [facility] Tdap Tdap 2018-07-02 Completed [place] 15:42:58 [facility] Tdap Tdap 2018-07-02 Completed [place] 15:42:58 [facility] Tdap Tdap 2018-07-02 Completed [place] 15:42:58 [facility] HPV, quadrivalent - HPV, quadrivalent - 2015-02-10 Completed [place] ML ML 00:00:00 [facility] HPV, quadrivalent - HPV, quadrivalent - 2015-02-10 Completed [place] ML ML 00:00:00 [facility] HPV, quadrivalent - HPV, quadrivalent - 2015-02-10 Completed [place] ML ML 00:00:00 [facility] HPV, quadrivalent - HPV, quadrivalent - 2015-02-10 Completed [place] ML ML 00:00:00 [facility] Tdap - ML Tdap - ML 2011-02-07 Completed [place] 00:00:00 [facility] Hep A, ped/adol, 2 Hep A, ped/adol, 2 2011-02-07 Completed [place] dose - ML dose - ML 00:00:00 [facility] meningococcal MCV4P meningococcal MCV4P 2011-02-07 Completed [place] - ML - ML 00:00:00 [facility] varicella - ML varicella - ML 2011-02-07 Completed [place] [facility] manager 00:00:00 [facility] Tdap - ML Tdap - ML 2011-02-07 Completed [place] 00:00:00 [facility] Hep A, ped/adol, 2 Hep A, ped/adol, 2 2011-02-07 Completed [place] dose - ML dose - ML 00:00:00 [facility] meningococcal MCV4P meningococcal MCV4P 2011-02-07 Completed [place] - ML - ML 00:00:00 [facility] varicella - ML varicella - ML 2011-02-07 Completed [place] [facility] 00:00:00 [facility] Tdap - ML Tdap - ML 2011-02-07 Completed [place] 00:00:00 [facility] Hep A, ped/adol, 2 Hep A, ped/adol, 2 2011-02-07 Completed [place] dose - ML dose - ML 00:00:00 [facility] meningococcal MCV4P meningococcal MCV4P 2011-02-07 Completed [place] - ML - ML 00:00:00 [facility] varicella - ML varicella - ML 2011-02-07 Completed [place] [facility] 00:00:00 [facility] Tdap - ML Tdap - ML 2011-02-07 Completed [place] 00:00:00 [facility] Hep A, ped/adol, 2 Hep A, ped/adol, 2 2011-02-07 Completed [place] dose - ML dose - ML 00:00:00 [facility] meningococcal MCV4P meningococcal MCV4P 2011-02-07 Completed [place] - ML - ML 00:00:00 [facility] varicella - ML varicella - ML 2011-02-07 Completed [place] [facility] 00:00:00 [facility] Hep A, ped/adol, 2 Hep A, ped/adol, 2 2002-02-20 Completed [place] dose - ML dose - ML 00:00:00 [facility] Hep A, ped/adol, 2 Hep A, ped/adol, 2 2002-02-20 Completed [place] dose - ML dose - ML 00:00:00 [facility] Hep A, ped/adol, 2 Hep A, ped/adol, 2 2002-02-20 Completed [place] dose - ML dose - ML 00:00:00 [facility] Hep A, ped/adol, 2 Hep A, ped/adol, 2 2002-02-20 Completed [place] dose - ML dose - ML 00:00:00 [facility] Vital Signs Vital Name Observation Time Observation Value Comments Source BP Systolic 2023-06-25 00:00:00 131 mm[Hg] [facility] Height 2023-06-25 00:00:00 67 [in_i] [facility] Body Weight 2023-06-25 00:00:00 132 [lb_av] [facility] BP Diastolic 2023-06-25 00:00:00 67 mm[Hg] [facility] BMI (Body Mass 2023-06-25 00:00:00 20.7 kg/m2 [place] [facility] BP Diastolic 2023-04-09 00:00:00 63 mm[Hg] [facility] Height 2023-04-09 00:00:00 67 [in_i] [place] [facility] BMI (Body Mass 2023-04-09 00:00:00 20.2 kg/m2 [place] [facility] BP Systolic 2023-04-09 00:00:00 110 mm[Hg] [place] [facility] Body Weight 2023-04-09 00:00:00 129 [lb_av] [place] [facility] BP Diastolic 2023-01-15 00:00:00 73 mm[Hg] [place] [facility] Height 2023-01-15 00:00:00 67 [in_i] [place] [facility] BMI (Body Mass 2023-01-15 00:00:00 21.6 kg/m2 [place] BP Systolic 2023-01-15 00:00:00 118 mm[Hg] [place] [facility] Body Weight 2023-01-15 00:00:00 138 [lb_av] [place] [facility] BP Diastolic 2022-06-01 00:00:00 72 mm[Hg] [facility] Height 2022-06-01 00:00:00 66 [in_i] [facility] BMI (Body Mass 2022-06-01 00:00:00 21.8 kg/m2 [facility] Index) Group BP Systolic 2022-06-01 00:00:00 96 mm[Hg] [facility] Body Weight 2022-06-01 00:00:00 2162 [oz_av] [facility] BP Diastolic 2021-07-04 00:00:00 67 mm[Hg] [place] [facility] Height 2021-07-04 00:00:00 67 [in_i] [place] [facility] BMI (Body Mass 2021-07-04 00:00:00 21.8 kg/m2 [facility] BP Systolic 2021-07-04 00:00:00 107 mm[Hg] [place] [facility] Body Weight 2021-07-04 00:00:00 139 [lb_av] [place] [facility] BP Diastolic 2021-06-08 00:00:00 66 mm[Hg] [place] [facility] Height 2021-06-08 00:00:00 67 [in_i] [place] [facility] BMI (Body Mass 2021-06-08 00:00:00 21.8 kg/m2 [facility] BP Systolic 2021-06-08 00:00:00 109 mm[Hg] [place] [facility] Body Weight 2021-06-08 00:00:00 139.4 [lb_av] [facility] Height 2021-05-26 05:22:00 170.18 CM Weight 2021-05-26 05:22:00 71.66 KG BP Diastolic 2021-05-24 00:00:00 72 mm[Hg] [facility] Height 2021-05-24 00:00:00 67 [in_i] [facility] BMI (Body Mass 2021-05-24 00:00:00 24.4 kg/m2 [facility] BP Systolic 2021-05-24 00:00:00 99 mm[Hg] [facility] Body Weight 2021-05-24 00:00:00 155.8 [lb_av] [facility] BP Diastolic 2021-05-16 00:00:00 73 mm[Hg] [place] [facility] Height 2021-05-16 00:00:00 67 [in_i] [place] [facility] BMI (Body Mass 2021-05-16 00:00:00 24.6 kg/m2 [facility] BP Systolic 2021-05-16 00:00:00 113 mm[Hg] [place] [facility] Body Weight 2021-05-16 00:00:00 156.8 [lb_av] [facility] BP Diastolic 2021-05-09 00:00:00 78 mm[Hg] [place] [facility] Height 2021-05-09 00:00:00 67 [in_i] [place] [facility] BMI (Body Mass 2021-05-09 00:00:00 24.7 kg/m2 [facility] BP Systolic 2021-05-09 00:00:00 115 mm[Hg] [place] [facility] Body Weight 2021-05-09 00:00:00 157.6 [lb_av] [facility] BP Diastolic 2021-05-03 00:00:00 77 mm[Hg] [place] [facility] Height 2021-05-03 00:00:00 67 [in_i] [place] [facility] BMI (Body Mass 2021-05-03 00:00:00 24.5 kg/m2 [facility] BP Systolic 2021-05-03 00:00:00 106 mm[Hg] [place] [facility] Body Weight 2021-05-03 00:00:00 156.6 [lb_av] [facility] BP Diastolic 2021-04-19 00:00:00 71 mm[Hg] [place] [facility] Height 2021-04-19 00:00:00 67 [in_i] [place] [facility] BMI (Body Mass 2021-04-19 00:00:00 24.4 kg/m2 [facility] BP Systolic 2021-04-19 00:00:00 108 mm[Hg] [place] [facility] Body Weight 2021-04-19 00:00:00 156 [lb_av] [place] [facility] BP Diastolic 2021-03-29 00:00:00 74 mm[Hg] [place] [facility] Height 2021-03-29 00:00:00 67 [in_i] [place] [facility] BMI (Body Mass 2021-03-29 00:00:00 24.7 kg/m2 [facility] BP Systolic 2021-03-29 00:00:00 116 mm[Hg] [facility] Body Weight 2021-03-29 00:00:00 158 [lb_av] [place] [facility] BP Diastolic 2021-03-08 00:00:00 73 mm[Hg] [place] [facility] Height 2021-03-08 00:00:00 67 [in_i] [place] [facility] BMI (Body Mass 2021-03-08 00:00:00 24.6 kg/m2 [facility] BP Systolic 2021-03-08 00:00:00 110 mm[Hg] [facility] Body Weight 2021-03-08 00:00:00 157 [lb_av] [facility] BP Diastolic 2021-02-08 00:00:00 73 mm[Hg] [facility] Height 2021-02-08 00:00:00 67 [in_i] [place] [facility] BMI (Body Mass 2021-02-08 00:00:00 23.3 kg/m2 [facility] BP Systolic 2021-02-08 00:00:00 104 mm[Hg] [facility] Body Weight 2021-02-08 00:00:00 149 [lb_av] [place] [facility] BP Diastolic 2021-01-12 00:00:00 82 mm[Hg] [place] [facility] Height 2021-01-12 00:00:00 67 [in_i] [place] [facility] BMI (Body Mass 2021-01-12 00:00:00 23.3 kg/m2 [facility] BP Systolic 2021-01-12 00:00:00 108 mm[Hg] [facility] Body Weight 2021-01-12 00:00:00 148.8 [lb_av] [facility] BP Diastolic 2020-12-15 00:00:00 74 mm[Hg] [place] [facility] Height 2020-12-15 00:00:00 67 [in_i] [place] [facility] BMI (Body Mass 2020-12-15 00:00:00 22.2 kg/m2 [facility] BP Systolic 2020-12-15 00:00:00 117 mm[Hg] [place] [facility] Body Weight 2020-12-15 00:00:00 142 [lb_av] [place] [facility] BP Diastolic 2020-11-10 00:00:00 70 mm[Hg] [place] [facility] Height 2020-11-10 00:00:00 67 [in_i] [place] [facility] BMI (Body Mass 2020-11-10 00:00:00 21.3 kg/m2 [facility] BP Systolic 2020-11-10 00:00:00 125 mm[Hg] [place] [facility] Body Weight 2020-11-10 00:00:00 136 [lb_av] [place] [facility] BP Diastolic 2020-10-10 00:00:00 62 mm[Hg] [place] [facility] Height 2020-10-10 00:00:00 67 [in_i] [place] [facility] BMI (Body Mass 2020-10-10 00:00:00 21.6 kg/m2 [facility] BP Systolic 2020-10-10 00:00:00 124 mm[Hg] [place] [facility] Body Weight 2020-10-10 00:00:00 138.2 [lb_av] [place] BP Diastolic 2020-05-09 00:00:00 71 mm[Hg] [place] [facility] Height 2020-05-09 00:00:00 67 [in_i] [place] [facility] BMI (Body Mass 2020-05-09 00:00:00 21 kg/m2 [facility] BP Systolic 2020-05-09 00:00:00 117 mm[Hg] [place] [facility] Body Weight 2020-05-09 00:00:00 134.4 [lb_av] [place] [facility] BP Diastolic 2019-10-07 00:00:00 70 mm[Hg] [place] [facility] Height 2019-10-07 00:00:00 67 [in_i] [place] [facility] BMI (Body Mass 2019-10-07 00:00:00 21 kg/m2 [facility] BP Systolic 2019-10-07 00:00:00 124 mm[Hg] [place] [facility] Body Weight 2019-10-07 00:00:00 133.8 [lb_av] [place] [facility] Height 2018-08-19 02:52:00 170.18 CM Weight 2018-08-19 02:52:00 73.02 KG Procedures Procedure Date / Time Performing Clinician Source Performed EXTRACTION POC LOW OPEN 2021-05-26 00:00:00 [facility] US, obstetric, 2021-04-19 00:00:00 [place] [facility] anatomy Program US, obstetric, 2021-01-12 00:00:00 [place] [facility] anatomy, single Program gestation US, obstetric, 2020-10-25 00:00:00 [place] [facility] US, obstetric, 2020-10-10 00:00:00 [place] [facility] US, transvaginal 2020-05-09 00:00:00 [place] [facility] EXTRACTION POC LOW OPEN 2018-08-19 00:00:00 [facility] Delivery [place] [facility] Breast Surgery [place] [facility] Caesarean Section [place] [facility] Plan of Care Planned Activity Planned Date Details Comments Source Diagnostic Test 2022-06-01 rapid strep group [facility] Pending 00:00:00 A, throat [code = Group rapid strep group A, throat] Future Appointment 2023-08-22 [facility] 08:00:00 1700 Uriel Sanchez; Health Outr [facility] [id number] Encounters Start End Encounter Admission Attending Care Care Encounter Source Date/Time Date/Time Type Type Clinicians Facility Department ID 2022-08-[address] [facility] [id number] 16:32:06 [id number] [place] 2023-06-28 2023-06-28 Emergency ER MIGUEL, [facility] [id number] [place] 00:49:00 04:00:00 ESAU [id number] [facility] 2023-06-25 2023-06-25 Gerber Cruz [facility] [id number] [place] 00:00:00 00:00:00 MD Paulo: Chuck jonas [address] [facility] [address] [address] [facility] [id number] h , Ph. Program (079) --20072023-06-24 2023-06-24 Outpatient [facility] [id number] [place] 00:00:00 00:00:00 H [id number] [facility] 2023-06-24 2023-06-24 Outpatient [facility] [id number] [place] 00:00:00 00:00:00 H [id number] [facility] 2023-06-08 2023-06-08 Emergency ER COLE, [facility] [id number] [place] 16:30:00 17:40:00 [id number] [facility] 2023-04-09 2023-04-09 Outpatient PAT[facility] [id number] [place] 00:00:00 00:00:00 H [id number] [facility] 2023-04-09 2023-04-09 Outpatient [facility] [id number] [place] 00:00:00 00:00:00 H [id number] [facility] 2023-04-09 2023-04-[address] [facility] [place] - [id number] [place] 00:00:00 00:00:00 MD Paulo: Chuck jonas 1700 [facility] [place] [facility] [address], [facility]re [id number] h , Ph. Program ([id number]) --20072023-04-03 2023-04-03 Outpatient [facility] [id number] [place] 00:00:00 00:00:00 H [id number] [facility] [facility] 2023-02-01 2023-02-01 Outpatient Ayeni_Ibito [facility] [phone] [place] 00:00:00 00:00:00 ye[facility]Olubu [id number] [facility] 2023-01-15 2023-01-[address] [facility] [place] - [id number] [place] 00:00:00 00:00:00 MD Paulo: Chuck jonas 1700 Worship Episco p [address] HOP - [address], [facility] [address] h , Ph. Program (081) --20072023-01-11 2023-01-11 Outpatient Ayeni_Ibito [facility] [phone] [place] 00:00:00 00:00:00 ye_Olubu 54774 [facility] 2023-01-11 2023-01-11 Outpatient Ayeni_Ibito [facility] [phone] [place] 00:00:00 00:00:00 ye_Olubu 90258 [facility] 2023-01-11 2023-01-11 Outpatient Ayeni_Ibito [facility] [phone] [place] 00:00:00 00:00:00 ye_Olubu 29695 [facility] 2022-10-18 2022-10-18 Outpatient Ayeni_Ibito [facility] [phone] [place] 00:00:00 00:00:00 ye_Olubu 85703 [facility] 2022-10-18 2022-10-18 Gerber Cruz [facility] [place] - [id number] [place] 00:00:00 00:00:00 MD Paulo: Chuck jonas 1700 Worship Episco p [address] HOP - [address], [facility]re [address] h , Ph. Program (373) -20072022-10-17 2022-10-17 Outpatient Ayeni_Ibito [facility] 102 - [place] 00:00:00 00:00:00 ye_Olubu 51414 [facility] 2022-10-02 2022-10-02 Emergency ER ILUORE, [facility] [id number] [place] 09:39:00 12:02:00 ADELINE -[id number] Formerly [facility] 2022-09-24 2022-09-24 Emergency ER BROWN, [facility] [id number] [place] 15:46:00 16:54:00 KRYSTYNA -[id number] Formerly [facility] 2022-09-13 2022-09-13 Outpatient Ayeni_Ibito [facility] 102 [id number]- [place] 00:00:00 00:00:00 ye_Olubu 27667 [facility] 2022-09-13 2022-09-[address] [facility] [place] - [id number] [place] 00:00:00 00:00:00 MD Paulo: Chuck jonas 1700 Worship Ep[address] p [place] HOP - [address], [facility] Outre [address] h , Ph. Program (068) --20072022-08-14 2022-08-14 Outpatient Ayeni_Ibito [facility] [phone] [place] 00:00:00 00:00:00 ye_Olubu 30218 [facility] 2022-08-14 2022-08-14 [facility] [place] - [id number] [place] 00:00:00 00:00:00 MD Paulo: Chuck jonas 1700 Worship Episco p [facility] - [address], [facility] [address] h , Ph. Program (979) --20072022-08-12 2022-08-12 Outpatient Ayeni_Ibito [facility] [phone] [place] 00:00:00 00:00:00 [facility]Olubu [facility] 2022-07-17 2022-07-17 [phone] [place] 00:00:00 00:00:00 ye_Olubu 10899 [facility] 2022-07-17 2022-07-17 [facility] [place] - [id number] [place] 00:00:00 00:00:00 MD Paulo: Chuck jonas 1700 Worship Episco p [facility] - [address], [facility] [address] h , Ph. Program (979) --20072022-07-15 2022-07-15 Outpatient Ayeni_Ibito [facility] [phone] [place] 00:00:00 00:00:00 ye_Olubu 57085 [facility] 2022-06-26 2022-06-26 Emergency ER ALICIA, [facility] [id number] [place] 13:45:00 17:00:00 VANDANA [id number] Formerly [facility] 2022-06-01 2022-06-01 Outpatient Anjum [facility] [id number] [place] 00:00:00 00:00:00 0729 Medical [facility] 2022-06-01 2022-06-01 Shelby [facility] [place] - [id number] [place] 00:00:00 00:00:00 Discovery Ezekiel da HOG COOLER-C: 600 [facility] [place] - [address], [facility], [place] [address] , Ph. 2022-04-08 2022-04-08 Emergency ER ARMANDO, [facility] [id number] [place] 20:26:00 22:11:00 YUSUF -[id number] Formerly [facility] 2022-01-26 2022-01-26 Outpatient Ayeni_Ibito [facility] [phone] [place] 11:12:00 11:12:00 ye_Olubu 90417 [facility] 2021-12-09 2021-12-09 Emergency ER COLE, [facility] [id number] [place] 00:01:00 02:58:00 KAILYN -[id number] Formerly [facility] 2021-08-21 2021-08-21 Outpatient Ayeni_Ibito [facility] [phone] [place] 12:08:00 12:08:00 ye_Olubu 27960 [facility] 2021-08-02 2021-08-02 Outpatient NERET [facility] [id number] [place] 04:21:00 04:21:00 0929 da [facility] 2021-07-04 2021-07-04 Outpatient Ayeni_Ibito [facility] [phone] [place] 12:42:00 12:42:00 ye_Olubu 93945 [facility] 2021-07-04 2021-07-04 [place] [facility] [place] - [id number] [place] 00:00:00 00:00:00 Leslie Sanches MD: Worship Epi scop 83131 HOP - MEHOP al [address] [place] [address] [address], [place] [address] , Ph. 2021-06-14 2021-06-14 Outpatient Ayeni_Ibito [facility] [phone] [place] 04:03:00 04:03:00 ye_Olubu 99615 [facility] 2021-06-08 2021-06-08 Outpatient Ayeni_Ibito MEHOP [facility] [phone] [place] 10:34:00 10:34:00 ye_Olubu 05474 [facility] 2021-06-08 2021-06-[address] 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 Program 2021-06-05 2021-06-05 Outpatient Ayeni_Ibito MOHOP [facility] [phone] [place] 05:47:00 05:47:00 ye_Olubu 04883 [facility] 2021-05-26 2021-05-28 Inpatient C VESTA-IBITO [facility] OB [id number] [place] 05:16:00 12:01:00 Jazmyn ARMENDARIZ [facility] 2021-05-25 2021-05-25 Outpatient Ayeni_Ibito MOHOP [facility] [phone] [place] 03:30:00 03:30:00 ye_Olubu 97195 [facility] 2021-05-24 2021-05-24 Outpatient Ayeni_Ibito MOHOP [facility] [phone] [place] 11:58:00 11:58:00 ye_Olubu 05295 [facility] 2021-05-24 2021-05-[address] [facility] [place] - [id number] [place] 00:00:00 00:00:00 Leslie Sanches MD: Worship Epi scop 80265 HOP - MEHOP al [address] [place] [address] [address], [place] [address] , Ph. 2021-05-16 2021-05-16 Outpatient Ayeni_Ibito [facility] [phone] [place] 12:18:00 12:18:00 ye_Olubu 99631 [facility] 2021-05-16 2021-05-16 [place] [facility] [place] - [id number] [place] 00:00:00 00:00:00 Leslie Sanches MD: Worship Epi scop 31515 HOP - MEHOP al [address] [facility] [place] [address] , Ph. 2021-05-10 2021-05-10 Outpatient Ayeni_Ibito [facility] [phone] [place] 05:47:00 05:47:00 ye_Olubu 34982 [facility] 2021-05-09 2021-05-09 Outpatient Ayeni_Ibito [facility] [phone] [place] 12:57:00 12:57:00 ye_Olubu 12684 [facility] 2021-05-09 2021-05-09 [place] [facility] [place] - [id number] [place] 00:00:00 00:00:00 Leslie Sanches MD: Worship Epi scop 55126 HOP - MOHOP [address], [place] [address] , Ph. 2021-05-03 2021-05-04 Emergency ER SUZANNE, [facility] [id number] [place] 22:43:00 01:05:00 BASSAM -[id number] Formerly [facility] 2021-05-03 2021-05-03 Outpatient Ayeni_Ibito [facility] [phone] [place] 12:19:00 12:19:00 ye_Olubu 50200 [facility] 2021-05-03 2021-05-03 [place] [facility] [place] - [id number] [place] 00:00:00 00:00:00 Leslie Sanches MD: Worship Epi scop 57055 HOP - MEHOP al [address] [place] [address], [place] [address] , Ph. 2021-04-21 2021-04-21 Outpatient EL VESTA, [facility] [id number] [place] 15:09:00 15:09:00 OLUBUKOLA -[id number] Formerly [facility] 2021-04-19 2021-04-19 Outpatient Ayeni_Ibito [facility] [phone] [place] 03:01:00 03:01:00 ye_Olubu 27930 [facility] 2021-04-19 2021-04-19 [place] [facility] [place] - [id number] [place] 00:00:00 00:00:00 Leslie Sanches MD: Worship Epi scop 02361 HOP - MEHOP al [address] [place] [address], [place] [address] , Ph. 2021-03-30 2021-03-30 Outpatient Ayeni_Ibito [facility] [phone] [place] 05:13:00 05:13:00 ye_Olubu 21143 [facility] 2021-03-29 2021-03-29 Outpatient Ayeni_Ibito [facility] 102 [id number] [place] 11:58:00 11:58:00 ye_Olubu 59606 [facility] 2021-03-29 2021-03-29 [place] [facility] [place] - [id number] [place] 00:00:00 00:00:00 Leslie Sanches MD: Worship Epi scop 05514 HOP - MEHOP al [address] [place] [address], [place] [address] , Ph. 2021-03-11 2021-03-11 Emergency ER SHAH, [facility] [id number] [place] 17:40:00 19:35:00 MUSHTAQ -[id number] Former[facility] 2021-03-08 2021-03-08 Outpatient Ayeni_Ibito [facility] [id number] [place] 04:07:00 04:07:00 ye_Olubu 44446 [facility] 2021-03-08 2021-03-[address] [facility] [place] - [id number] [place] 00:00:00 00:00:00 Leslie Sanches MD: Worship Epi scop 56948 HOP - MEHOP [address], [place] [address] , Ph. 2021-02-09 2021-02-09 Outpatient Ayeni_Ibito [facility] [phone] [place] 11:54:00 11:54:00 ye_Olubu 00076 [facility] 2021-02-08 2021-02-08 Outpatient Ayeni_Ibito [facility] 102 [id number] [place] 11:23:00 11:23:00 ye_Olubu 27858 [facility] 2021-02-08 2021-02-[address] [facility] [place] - [id number] [place] 00:00:00 00:00:00 Leslie Sanches MD: Worship Epi scop 34871 HOP - MOHOP [address], [place] [address] , Ph. 2021-02-07 2021-02-07 Outpatient Ayeni_Ibito [facility] [phone] [place] 05:12:00 05:12:00 ye_Olubu 30722 [facility] 2021-01-17 2021-01-17 Outpatient BAYLEE LEMONS, [facility] [id number] [place] 12:31:00 12:31:00 KAITLYN -[id number] Formerly [facility] 2021-01-12 2021-01-12 Outpatient LISTER_MELI [facility] [phone] [place] 04:51:00 04:51:00 SSA 78192 [facility] 2021-01-12 2021-01-12 Olubtania [facility] [place] - [id number] [place] 00:00:00 00:00:00 Leslie Sanches MD: Worship Epi scop 91878 HOP - MEHOP al [address] [place] [address], [place] [address] , Ph. 2020-12-15 2020-12-15 Outpatient LISTER_MELI [facility] [phone] [place] 05:45:00 05:45:00 SSA 16607 [facility] 2020-12-15 2020-12-15 Olubtania [facility] [place] - [id number] [place] 00:00:00 00:00:00 Leslie Sanches MD: Worship Epi scop 68264 HOP - MEHOP al [address] [place] [address], [place] [address] , Ph. 2020-11-11 2020-11-11 Outpatient LISTER_MELI [facility] 102 [id number] [place] 09:42:00 09:42:00 SSA 42644 [facility] 2020-11-10 2020-11-10 Outpatient LISTER_MELI [facility] [phone] [place] 10:01:00 10:01:00 SSA 18155 [facility] 2020-11-10 2020-11-10 [place] [facility] [place] - [id number] [place] 00:00:00 00:00:00 Leslie Sanches MD: Worship Epi scop 41006 HOP - MEHOP [address], [place] [address] , Ph. 2020-10-10 2020-10-10 Outpatient LISTER_MELI [facility] 102 [id number] [place] 05:17:00 05:17:00 SSA 38266 [facility] 2020-10-10 2020-10-10 Kaitlyn SIMON [place] - [id number] [place] 00:00:00 00:00:00 Leslie Sanches MD: Worship Epi scop 28132 HOP - MEHOP al [address] [place] [address] [address], [place] [address] , Ph. 2020-10-09 2020-10-09 Outpatient LISTER_MELI [facility]OP [phone] [place] 11:40:00 11:40:00 SSA 69330 [facility] 2020-10-06 2020-10-06 Outpatient LISTER_MELI [facility] [phone] [place] 12:49:00 12:49:00 SSA 82379 [facility] 2020-05-14 2020-05-14 Outpatient LISTER_MELI [facility] 102 [id number] [place] 08:12:00 08:12:00 SSA 90359 [facility] 2020-05-09 2020-05-09 Outpatient LISTER_MELI [facility] 102 [id number] [place] 05:52:00 05:52:00 SSA 35625 [facility] 2020-05-09 2020-05-09 Mayelin SIM[place] - [id number] [place] 00:00:00 00:00:00 Obdulia Chuck Rodriguez, Worship Episco p 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 2019-09-13 2019-09-13 Emergency ER RUFINO, [facility] [id number] [place] 12:22:00 14:57:00 JIM [id number] Formerly [facility] 2019-07-29 2019-07-29 Emergency ER GAL WILEY [facility] [id number] [place] 11:55:00 13:13:00 -[id number] Formerly [facility] 2018-08-18 2018-08-21 Inpatient U DICLEMENTE, [facility] [place] [id number] [place] 18:45:00 13:10:00 [facility] 2018-07-16 2018-07-16 Outpatient EL DICLEMENTE, [facility] [id number] [place] 15:44:00 15:44:00 [id number] Former[facility] 2018-07-02 2018-07-02 Outpatient EL DICLEMENTE, [facility] D00 [id number] [place] 16:17:00 16:17:00 [id number] Former[facility] 2018-06-29 2018-06-29 Emergency ER FERNANDO, [facility] [id number] [place] 18:22:00 19:25:00 MUSHTAQ -[id number] Formerly [facility] 2018-06-11 2018-06-11 Outpatient EL DICLEMENTE, [facility] D00 [id number] [place] 13:25:00 13:25:00 JOSSE [id number] Formerly [facility] 2017-02-27 2017-02-27 Emergency TR GEORGINA, [facility] [id number] [place] 14:48:00 17:09:00 MARIELY [id number] Formerly [facility] 2016-02-16 2016-02-16 Emergency ER BARRETO, [facility] [id number] [place] 13:07:00 17:00:00 ELISHA [id number] Formerly [facility] 2015-02-21 2015-02-21 Outpatient EL FERNANDO, [facility] [id number] [place] 16:26:00 16:26:00 MUSHTAQ [id number] Formerly [facility] 2015-02-14 2015-02-14 Outpatient EL TIERA [facility] [id number] [place] 09:28:00 09:28:00 CUCO Juarez -[id number] Formerly [facility] 2015-01-21 2015-01-21 Emergency ER DEQUAN, [facility] [id number] [place] 08:21:00 09:21:00 OBIDIKE -[id number] Formerly [facility] 2014-07-25 2014-07-25 Emergency ER JOHNNIE, [facility] [id number] [place] 12:45:00 15:03:00 ZULY -[id number] Formerly [facility] 2002-10-01 2002-10-01 Emergency ER STACY, [facility] [id number] [place] 19:14:00 21:50:00 CLEMENT -[id number] Former[facility] Results Test Description Test Time Test Comments Results Result Comments Source rapid strep group A, throat 2022-06-01 14:46:17 Test Item Value Reference Range Interpretation Comme nts Strep Result (test code = Strep Result) negative [facility] (INCLUDES AUTOMATED DIFFERENTIAL)*[id number] 13:13:00 Test Item Value Reference Range Interpretation Comments WBC (test code = WBC) 9.7 10\S\3/uL 4.5-11.0 RBC (test code = RBC) 3.16 10\S\6/uL 4.30-5.70 L HGB (test code = HBG) 9.3 g/dL 12.0-15.5 L HCT (test code = HCT) 28.9 % 35.0-44.0 L MCV (test code = MCV) 91.5 fL 81.0-99.0 MCH (test code = MCH) 29.4 pg 27.0-31.0 MCHC (test code = MCHC) 32.2 g/dL 32.0-36.0 RDW (test code = RDW) 13.9 % 11.5-14.5 PLT (test code = PLT) 214 10\S\3/uL 130-400 MPV (test code = MPV) 9.5 fL 9.4-12.4 NEUTROP # (test code = NE#) 7.4 10\S\3/uL 1.6-8.0 LYMPH # (test code = LY#) 1.3 10\S\3/uL 1.1-3.5 MONOCYTE # (test code = MO#) 0.8 10\S\3/uL 0.0-1.1 EOSINOPH # (test code = EO#) 0.1 10\S\3/uL 0.0-0.7 BASOPHIL # (test code = BA#) 0.0 10\S\3/uL 0.0-0.3 IG # (test code = IG#) 0.05 10\S\3/uL 0.00-0.06 NRBC # (test code = NRBC#) 0.00 10\S\3/uL 0.00-0.01 NEUTROPH % (test code = NE%) 76.8 % 35.0-73.0 H LYMPH % (test code = LY%) 13.8 % 20.0-55.0 L MONO % (test code = MO%) 8.2 % 2.5-10.0 EOSINOPH % (test code = EO%) 0.6 % 0.0-5.0 BASOPHIL % (test code = BA%) 0.1 % 0.0-2.0 IG % (test code = IG%) 0.5 % 0.0-0.8 NRBC% (test code = NRBC%) 0.0 % 0.0-0.2 MANDIFF (test code = WMDIFF) NO NO RBC MORPH (test code = NORMAL WRBCMOR) HIV *WW*2021-05-26 12:20:00 Test Item Value Reference Range Interpretation Comments HIV-1,2 and p24 (test code = NON-REACTIVE NON-REACTIVE CHIV) SYPHILIS SCREENING WW2021-05-26 11:55:00 Test Item Value Reference Range Interpretation Comments T PALLIDUM AB (test NON-REACTIVE NON-REACTIVE code = SYPHINT) SYPHC (test code = RPR test has been SYPHC) updated to Treponemal Immunoassay. Interpretation of results is similar HEPATITIS B SURFACE ANTIGEN *WW*2021-05-26 11:53:00 Test Item Value Reference Range Interpretation Comments HBSAG (test code = HBSAG) NON-REACTIVE NON-REACTIVE FIBRINOGEN QUANTITATIVE *WW*2021-05-26 07:36:00 Test Item Value Reference Range Interpretation Comments FIBRINOGEN (test code = FIB) 486 mg/dL 260-480 H URINALYSIS WITH MICRO *WW*2021-05-26 07:31:00 Test Item Value Reference Range Interpretation Comments COLOR (test code = COLU) YELLOW YELLOW CLARITY (test code = CLA) SLT HAZY CLEAR A GLUCOSE UR (test code = UA GLUCOSE) NEGATIVE NEGATIVE BILI UR (test code = BILE) NEGATIVE NEGATIVE KETONES UR (test code = DILIA) NEGATIVE NEGATIVE SP GRAVITY (test code = SPGR) 1.020 1.005-1.030 PH UR (test code = PH) 7.0 4.5-8.0 PROTEIN UR (test code = PU) TRACE NEGATIVE A UROBIL UR (test code = UROQ) 4.0 EU/dL 0.2-1.0 H NITRITE UR (test code = NITRITE) NEGATIVE NEGATIVE BLOOD UR (test code = UA BLOOD) NEGATIVE NEGATIVE LEUK ES UR (test code = LEUK) 2+ NEGATIVE A WBC UR (test code = UWBC) 7 /HPF 0-5 H RBC UR (test code = URBC) 0 /HPF 0-2 EPITH UR (test code = UEPC) FEW /LPF FEW BACTERIA UR (test code = UBACT) FEW /HPF NONE A CAST UR (test code = CAST) /LPF NONE CRYSTAL UR (test code = CRYU) / LPF NONE MUCUS UR (test code = MUC) / HPF NONE AMORPH UR (test code = DEMETRIUS) / HPF NONE TRICH UR (test code = UTRICH) /HPF NONE YEAST UR (test code = UY) /HPF NONE SPERM UR (test code = USPERM) /HPF NONE SARS-CoV (RAPID ANTIGEN) WW2021-05-26 07:25:00 Test Item Value Reference Range Interpretation Comments SARS-CoV (ANTIGEN) NEGATIVE NEGATIVE (test code = COVAG) COVID AG (test This test has been code = COVAGC) marketed under the FDA Emergency Use Authorization (EUA) to meet challenges of the COVID-19 pandemic. The validation standards normally enforced by the FDA and the College of the [place] [employer] (CAP) are more stringent than those required for this test. Therefore, the result should be interpreted with caution and close attention to other clinical and epidemiological data CBC (INCLUDES AUTOMATED DIFFERENTIAL)*[id number] 07:21:00 Test Item Value Reference Range Interpretation Comments WBC (test code = WBC) 8.5 10\S\3/uL 4.5-11.0 RBC (test code = RBC) 3.51 10\S\6/uL 4.30-5.70 L HGB (test code = HBG) 10.3 g/dL 12.0-15.5 L HCT (test code = HCT) 32.1 % 35.0-44.0 L MCV (test code = MCV) 91.5 fL 81.0-99.0 MCH (test code = MCH) 29.3 pg 27.0-31.0 MCHC (test code = MCHC) 32.1 g/dL 32.0-36.0 RDW (test code = RDW) 13.8 % 11.5-14.5 PLT (test code = PLT) 220 10\S\3/uL 130-400 MPV (test code = MPV) 9.8 fL 9.4-12.4 NEUTROP # (test code = NE#) 5.4 10\S\3/uL 1.6-8.0 LYMPH # (test code = LY#) 1.9 10\S\3/uL 1.1-3.5 MONOCYTE # (test code = MO#) 1.0 10\S\3/uL 0.0-1.1 EOSINOPH # (test code = EO#) 0.1 10\S\3/uL 0.0-0.7 BASOPHIL # (test code = BA#) 0.0 10\S\3/uL 0.0-0.3 IG # (test code = IG#) 0.04 10\S\3/uL 0.00-0.06 NRBC # (test code = NRBC#) 0.00 10\S\3/uL 0.00-0.01 NEUTROPH % (test code = NE%) 64.0 % 35.0-73.0 LYMPH % (test code = LY%) 22.6 % 20.0-55.0 MONO % (test code = MO%) 11.4 % 2.5-10.0 H EOSINOPH % (test code = EO%) 1.1 % 0.0-5.0 BASOPHIL % (test code = BA%) 0.4 % 0.0-2.0 IG % (test code = IG%) 0.5 % 0.0-0.8 NRBC% (test code = NRBC%) 0.0 % 0.0-0.2 MANDIFF (test code = WMDIFF) NO NO RBC MORPH (test code = NORMAL WRBCMOR) Urinalysis macro (dipstick) panel - [id number] 11:16:00 Test Item Value Reference Range Interpretation Comments Leukocytes (test code = NEG Leukocytes) Nitrite (test code = Nitrite) NEG Urobilinogen (test code = 0.2 Urobilinogen) Protein (test code = Protein) NEG pH (test code = pH) 6.0 Blood (test code = Blood) NEG Specific Anderson (test code = 1.010 Specific Anderson) Ketone (test code = Ketone) NEG Bilirubin (test code = Bilirubin) NEG Glucose (test code = Glucose) NEG Appearance (test code = CLEAR Appearance) Color (test code = Color) [facility] - [id number] 11:16:00 Test Item Value Reference Range Interpretation Comments Leukocytes (test code = NEG Leukocytes) Nitrite (test code = Nitrite) NEG Urobilinogen (test code = 0.2 Urobilinogen) Protein (test code = Protein) NEG pH (test code = pH) 6.0 Blood (test code = Blood) NEG Specific Anderson (test code = 1.010 Specific Anderson) Ketone (test code = Ketone) NEG Bilirubin (test code = Bilirubin) NEG Glucose (test code = Glucose) NEG Appearance (test code = CLEAR Appearance) Color (test code = Color) [facility] - [id number] 11:16:00 Test Item Value Reference Range Interpretation Comments Leukocytes (test code = NEG Leukocytes) Nitrite (test code = Nitrite) NEG Urobilinogen (test code = 0.2 Urobilinogen) Protein (test code = Protein) NEG pH (test code = pH) 6.0 Blood (test code = Blood) NEG Specific Anderson (test code = 1.010 Specific Anderson) Ketone (test code = Ketone) NEG Bilirubin (test code = Bilirubin) NEG Glucose (test code = Glucose) NEG Appearance (test code = CLEAR Appearance) Color (test code = Color) [facility]LLOW [facility] - [id number] 09:07:00 Test Item Value Reference Range Interpretation Comments Leukocytes (test code = Leukocytes) 3+ Nitrite (test code = Nitrite) neg Urobilinogen (test code = 0.2 Urobilinogen) Protein (test code = Protein) neg pH (test code = pH) 6.5 Blood (test code = Blood) neg Specific Anderson (test code = Specific 1.020 Anderson) Ketone (test code = Ketone) neg Bilirubin (test code = Bilirubin) neg Glucose (test code = Glucose) neg Appearance (test code = Appearance) clear Color (test code = Color) yellow [facility] - [id number] 09:07:00 Test Item Value Reference Range Interpretation Comments Leukocytes (test code = Leukocytes) 3+ Nitrite (test code = Nitrite) neg Urobilinogen (test code = 0.2 Urobilinogen) Protein (test code = Protein) neg pH (test code = pH) 6.5 Blood (test code = Blood) neg Specific Anderson (test code = Specific 1.020 Anderson) Ketone (test code = Ketone) neg Bilirubin (test code = Bilirubin) neg Glucose (test code = Glucose) neg Appearance (test code = Appearance) clear Color (test code = Color) yellow [facility] - [id number] 09:07:00 Test Item Value Reference Range Interpretation Comments Leukocytes (test code = Leukocytes) 3+ Nitrite (test code = Nitrite) neg Urobilinogen (test code = 0.2 Urobilinogen) Protein (test code = Protein) neg pH (test code = pH) 6.5 Blood (test code = Blood) neg Specific Anderson (test code = Specific 1.020 Anderson) Ketone (test code = Ketone) neg Bilirubin (test code = Bilirubin) neg Glucose (test code = Glucose) neg Appearance (test code = Appearance) clear Color (test code = Color) yellow [facility] - [id number] 10:40:00 Test Item Value Reference Range Interpretation Comments Leukocytes (test code = 3+ Leukocytes) Nitrite (test code = Nitrite) neg Urobilinogen (test code = 0.2 Urobilinogen) Protein (test code = Protein) neg pH (test code = pH) 8.0 Blood (test code = Blood) neg Specific Anderson (test code = 1.015 Specific Anderson) Ketone (test code = Ketone) 5 Bilirubin (test code = Bilirubin) 1+ Glucose (test code = Glucose) neg Appearance (test code = cear Appearance) Color (test code = Color) [facility] - [id number] 10:40:00 Test Item Value Reference Range Interpretation Comments Leukocytes (test code = 3+ Leukocytes) Nitrite (test code = Nitrite) neg Urobilinogen (test code = 0.2 Urobilinogen) Protein (test code = Protein) neg pH (test code = pH) 8.0 Blood (test code = Blood) neg Specific Anderson (test code = 1.015 Specific Anderson) Ketone (test code = Ketone) 5 Bilirubin (test code = Bilirubin) 1+ Glucose (test code = Glucose) neg Appearance (test code = cear Appearance) Color (test code = Color) dark yellow [facility] - [id number] 10:40:00 Test Item Value Reference Range Interpretation Comments Leukocytes (test code = 3+ Leukocytes) Nitrite (test code = Nitrite) neg Urobilinogen (test code = 0.2 Urobilinogen) Protein (test code = Protein) neg pH (test code = pH) 8.0 Blood (test code = Blood) neg Specific Anderson (test code = 1.015 Specific Anderson) Ketone (test code = Ketone) 5 Bilirubin (test code = Bilirubin) 1+ Glucose (test code = Glucose) neg Appearance (test code = cear Appearance) Color (test code = Color) dark yellow [facility] - [id number] 10:40:00 Test Item Value Reference Range Interpretation Comments Leukocytes (test code = 3+ Leukocytes) Nitrite (test code = Nitrite) neg Urobilinogen (test code = 0.2 Urobilinogen) Protein (test code = Protein) neg pH (test code = pH) 8.0 Blood (test code = Blood) neg Specific Anderson (test code = 1.015 Specific Anderson) Ketone (test code = Ketone) 5 Bilirubin (test code = Bilirubin) 1+ Glucose (test code = Glucose) neg Appearance (test code = cear Appearance) Color (test code = Color) dark yellow [facility] ProgramStreptococcus agalactiae [Presence] in Unspecified specimen by Organism specific [id number] 00:00:00 Test Item Value Reference Range Interpretation Comments culture, strep B - specimen number: (test code = [id number] culture, strep B - ) [facility] ProgramStreptococcus agalactiae [Presence] in Unspecified specimen by Organism specific [id number] 00:00:00 Test Item Value Reference Range Interpretation Comments culture, strep B - specimen number: (test code = [id number] culture, strep B - ) [facility] ProgramStreptococcus agalactiae [Presence] in Unspecified specimen by Organism specific [id number] 00:00:00 Test Item Value Reference Range Interpretation Comments culture, strep B - specimen number: (test code = [id number] culture, strep B - ) [facility] ProgramStreptococcus agalactiae [Presence] in Unspecified specimen by Organism specific [id number] 00:00:00 Test Item Value Reference Range Interpretation Comments culture, strep B - specimen number: (test code = [id number] culture, strep B - ) [facility] ProgramBacterial vaginosis and vaginitis DNA panel - Vaginal fluid by Probe with signal [id number] 00:00:00 Test Item Value Reference Range Interpretation Comments bv result (test code = bv positive A result) lactobacillus spp. (test code = normal lactobacillus spp.) gardnerella vaginalis (test code detected = gardnerella vaginalis) atopobium vaginae (test code = detected atopobium vaginae) bvab2 (test code = bvab2) detected megasphera spp. (test code = detected megasphera spp.) mobiluncus curtisii (test code = not detected mobiluncus curtisii) mobiluncus mulieris (test code = not detected mobiluncus mulieris) prevotella bivia (test code = detected prevotella bivia) lactobacillus iners (test code = detected lactobacillus iners) specimen (test code = specimen) see note cale albicans (test code = detected A cale albicans) cale glabrata (test code = not detected cale glabrata) cale parapsilosis (test code not detected = cale parapsilosis) cale tropicalis (test code = not detected cale tropicalis) cale krusei (test code = not detected cale krusei) trichomonas, simpleswab (test negative code = trichomonas, simpleswab) [facility] - Vaginal fluid by Probe with signal [id number] 00:00:00 Test Item Value Reference Range Interpretation Comments bv result (test code = bv positive A result) lactobacillus spp. (test code = normal lactobacillus spp.) gardnerella vaginalis (test code detected = gardnerella vaginalis) atopobium vaginae (test code = detected atopobium vaginae) bvab2 (test code = bvab2) detected megasphera spp. (test code = detected megasphera spp.) mobiluncus curtisii (test code = not detected mobiluncus curtisii) mobiluncus mulieris (test code = not detected mobiluncus mulieris) prevotella bivia (test code = detected prevotella bivia) lactobacillus iners (test code = detected lactobacillus iners) specimen (test code = specimen) see note cale albicans (test code = detected A cale albicans) cale glabrata (test code = not detected cale glabrata) cale parapsilosis (test code not detected = cale parapsilosis) cale tropicalis (test code = not detected cale tropicalis) cale krusei (test code = not detected cale krusei) trichomonas, simpleswab (test negative code = trichomonas, simpleswab) [facility] ProgramBacterial vaginosis and vaginitis DNA panel - Vaginal fluid by Probe with signal [id number] 00:00:00 Test Item Value Reference Range Interpretation Comments bv result (test code = bv positive A result) lactobacillus spp. (test code = normal lactobacillus spp.) gardnerella vaginalis (test code detected = gardnerella vaginalis) atopobium vaginae (test code = detected atopobium vaginae) bvab2 (test code = bvab2) detected megasphera spp. (test code = detected megasphera spp.) mobiluncus curtisii (test code = not detected mobiluncus curtisii) mobiluncus mulieris (test code = not detected mobiluncus mulieris) prevotella bivia (test code = detected prevotella bivia) lactobacillus iners (test code = detected lactobacillus iners) specimen (test code = specimen) see note cale albicans (test code = detected A cale albicans) cale glabrata (test code = not detected cale glabrata) cale parapsilosis (test code not detected = cale parapsilosis) cale tropicalis (test code = not detected cale tropicalis) cale krusei (test code = not detected cale krusei) trichomonas, simpleswab (test negative code = trichomonas, simpleswab) [facility]Chlamydia trachomatis DNA [Presence] in Unspecified specimen by JAVIER with probe [id number] 00:00:00 Test Item Value Reference Range Interpretation Comments chlamydia, tma (test code = negative negative chlamydia, tma) [facility]Neisseria gonorrhoeae DNA [Presence] in Unspecified specimen by JAVIER with probe [id number] 00:00:00 Test Item Value Reference Range Interpretation Comments gonorrhea, tma (test code = negative negative gonorrhea, tma) [facility]lamydia trachomatis DNA [Presence] in Unspecified specimen by JAVIER with probe [id number] 00:00:00 Test Item Value Reference Range Interpretation Comments chlamydia, tma (test code = negative negative chlamydia, tma) [facility]isseria gonorrhoeae DNA [Presence] in Unspecified specimen by JAVIER with probe [id number] 00:00:00 Test Item Value Reference Range Interpretation Comments gonorrhea, tma (test code = negative negative gonorrhea, tma) [facility] trachomatis [facility] [Presence] in Unspecified specimen by JAVIER with probe [id number] 00:00:00 Test Item Value Reference Range Interpretation Comments chlamydia, tma (test code = negative negative chlamydia, tma) [facility]Ne[facility]eria gonorrhoeae DNA [Presence] in Unspecified specimen by JAVIER with probe [id number] 00:00:00 Test Item Value Reference Range Interpretation Comments gonorrhea, tma (test code = negative negative gonorrhea, tma) [facility]Ur[facility] macro (dipstick) panel - [id number] 09:59:00 Test Item Value Reference Range Interpretation Comments Leukocytes (test code = 3+ Leukocytes) Nitrite (test code = Nitrite) NEG Urobilinogen (test code = 1+ Urobilinogen) Protein (test code = Protein) TRACE pH (test code = pH) 6.0 Blood (test code = Blood) NEG Specific Anderson (test code = 1.020 Specific Anderson) Ketone (test code = Ketone) NEG Bilirubin (test code = Bilirubin) 1+ Glucose (test code = Glucose) NEG Appearance (test code = CLEAR Appearance) Color (test code = Color) DARK YELLOW [facility]Ur[facility] macro (dipstick) panel - [id number] 09:59:00 Test Item Value Reference Range Interpretation Comments Leukocytes (test code = 3+ Leukocytes) Nitrite (test code = Nitrite) NEG Urobilinogen (test code = 1+ Urobilinogen) Protein (test code = Protein) TRACE pH (test code = pH) 6.0 Blood (test code = Blood) NEG Specific Anderson (test code = 1.020 Specific Anderson) Ketone (test code = Ketone) NEG Bilirubin (test code = Bilirubin) 1+ Glucose (test code = Glucose) NEG Appearance (test code = CLEAR Appearance) Color (test code = Color) DARK YELLOW [facility]Ur[facility] (dipstick) panel - [id number] 09:59:00 Test Item Value Reference Range Interpretation Comments Leukocytes (test code = 3+ Leukocytes) Nitrite (test code = Nitrite) NEG Urobilinogen (test code = 1+ Urobilinogen) Protein (test code = Protein) TRACE pH (test code = pH) 6.0 Blood (test code = Blood) NEG Specific Anderson (test code = 1.020 Specific Anderson) Ketone (test code = Ketone) NEG Bilirubin (test code = Bilirubin) 1+ Glucose (test code = Glucose) NEG Appearance (test code = CLEAR Appearance) Color (test code = Color) DARK YELLOW [facility] (dipstick) panel - [id number] 09:59:00 Test Item Value Reference Range Interpretation Comments Leukocytes (test code = 3+ Leukocytes) Nitrite (test code = Nitrite) NEG Urobilinogen (test code = 1+ Urobilinogen) Protein (test code = Protein) TRACE pH (test code = pH) 6.0 Blood (test code = Blood) NEG Specific Anderson (test code = 1.020 Specific Anderson) Ketone (test code = Ketone) NEG Bilirubin (test code = Bilirubin) 1+ Glucose (test code = Glucose) NEG Appearance (test code = CLEAR Appearance) Color (test code = Color) DARK YELLOW [facility] SouthCBC W Auto Differential panel - Blood 2021-04-20 00:00:00 Test Item Value Reference Range Interpretation Comments Leukocytes [#/volume] in Blood 7.8 x10e3/uL 3.4-10.8 by Automated count (test code = 6690-2) Erythrocytes [#/volume] in 3.50 x10e6/uL 3.77-5.28 L Blood by Automated count (test code = 789-8) Hemoglobin [Mass/volume] in 10.8 g/dL 11.1-15.9 L Blood (test code = 718-7) Hematocrit [Volume Fraction] of 32.1 % 34.0-46.6 L Blood by Automated count (test code = 4544-3) MCV [Entitic volume] by 92 fL 79-97 Automated count (test code = 787-2) MCH [Entitic mass] by Automated 30.9 pg 26.6-33.0 count (test code = 785-6) MCHC [Mass/volume] by Automated 33.6 g/dL 31.5-35.7 count (test code = 786-4) Erythrocyte distribution width 12.5 % 11.7-15.4 [Ratio] by Automated count (test code = 788-0) Platelets [#/volume] in Blood 233 x10e3/uL 150-450 by Automated count (test code = 777-3) Neutrophils/100 leukocytes in 73 % not estab. Blood by Automated count (test code = 770-8) Lymphocytes/100 leukocytes in 17 % not estab. Blood by Automated count (test code = 736-9) Monocytes/100 leukocytes in 9 % not estab. Blood by Automated count (test code = 5905-5) Eosinophils/100 leukocytes in 1 % not estab. Blood by Automated count (test code = 713-8) Basophils/100 leukocytes in 0 % not estab. Blood by Automated count (test code = 706-2) immature cells (test code = rectifying operator immature cells) Neutrophils [#/volume] in Blood 5.7 x10e3/uL 1.4-7.0 by Automated count (test code = 751-8) Lymphocytes [#/volume] in Blood 1.3 x10e3/uL 0.7-3.1 by Automated count (test code = 731-0) Monocytes [#/volume] in Blood 0.7 x10e3/uL 0.1-0.9 by Automated count (test code = 742-7) Eosinophils [#/volume] in Blood 0.1 x10e3/uL 0.0-0.4 by Automated count (test code = 711-2) Basophils [#/volume] in Blood 0.0 x10e3/uL 0.0-0.2 by Automated count (test code = 704-7) Immature granulocytes/100 0 % not estab. leukocytes in Blood by Automated count (test code = 85068-6) Immature granulocytes 0.0 x10e3/uL 0.0-0.1 [#/volume] in Blood by Automated count (test code = 75377-2) Nucleated erythrocytes/100 rectifying operator leukocytes [Ratio] in Blood by Automated count (test code = 42857-3) Morphology [Interpretation] in rectifying operator Blood Narrative (test code = 62186-1) [facility] ProgramRe[facility] [Presence] in Serum by R 2021-04-20 00:00:00 Test Item Value Reference Range Interpretation Comments Reagin Ab [Presence] in Serum by non reactive non reactive RPR (test code = 90448-7) [facility]Hep[facility] B virus surface Ag [Presence] in Serum or Plasma by [id number] 00:00:00 Test Item Value Reference Range Interpretation Comments Hepatitis B virus surface Ag negative negative [Presence] in Serum or Plasma by Immunoassay (test code = 5196-1) [facility]2 [facility]+HIV1 p24 Ag [Presence] in Serum or Plasma by [id number] 00:00:00 Test Item Value Reference Range Interpretation Comments HIV 1+2 Ab+HIV1 p24 Ag non reactive non reactive [Presence] in Serum or Plasma by Immunoassay (test code = 62473-9) [facility] Auto Differential panel - Blood 2021-04-20 00:00:00 Test Item Value Reference Range Interpretation Comments Leukocytes [#/volume] in Blood 7.8 x10e3/uL 3.4-10.8 by Automated count (test code = 6690-2) Erythrocytes [#/volume] in 3.50 x10e6/uL 3.77-5.28 L Blood by Automated count (test code = 789-8) Hemoglobin [Mass/volume] in 10.8 g/dL 11.1-15.9 L Blood (test code = 718-7) Hematocrit [Volume Fraction] of 32.1 % 34.0-46.6 L Blood by Automated count (test code = 4544-3) MCV [Entitic volume] by 92 fL 79-97 Automated count (test code = 787-2) MCH [Entitic mass] by Automated 30.9 pg 26.6-33.0 count (test code = 785-6) MCHC [Mass/volume] by Automated 33.6 g/dL 31.5-35.7 count (test code = 786-4) Erythrocyte distribution width 12.5 % 11.7-15.4 [Ratio] by Automated count (test code = 788-0) Platelets [#/volume] in Blood 233 x10e3/uL 150-450 by Automated count (test code = 777-3) Neutrophils/100 leukocytes in 73 % not estab. Blood by Automated count (test code = 770-8) Lymphocytes/100 leukocytes in 17 % not estab. Blood by Automated count (test code = 736-9) Monocytes/100 leukocytes in 9 % not estab. Blood by Automated count (test code = 5905-5) Eosinophils/100 leukocytes in 1 % not estab. Blood by Automated count (test code = 713-8) Basophils/100 leukocytes in 0 % not estab. Blood by Automated count (test code = 706-2) immature cells (test code = rectifying operator immature cells) Neutrophils [#/volume] in Blood 5.7 x10e3/uL 1.4-7.0 by Automated count (test code = 751-8) Lymphocytes [#/volume] in Blood 1.3 x10e3/uL 0.7-3.1 by Automated count (test code = 731-0) Monocytes [#/volume] in Blood 0.7 x10e3/uL 0.1-0.9 by Automated count (test code = 742-7) Eosinophils [#/volume] in Blood 0.1 x10e3/uL 0.0-0.4 by Automated count (test code = 711-2) Basophils [#/volume] in Blood 0.0 x10e3/uL 0.0-0.2 by Automated count (test code = 704-7) Immature granulocytes/100 0 % not estab. leukocytes in Blood by Automated count (test code = 41408-7) Immature granulocytes 0.0 x10e3/uL 0.0-0.1 [#/volume] in Blood by Automated count (test code = 89201-7) Nucleated erythrocytes/100 rectifying operator leukocytes [Ratio] in Blood by Automated count (test code = 26698-4) Morphology [Interpretation] in rectifying operator Blood Narrative (test code = 98725-5) [facility]Re[facility] [Presence] in Serum by RPR 2021-04-20 00:00:00 Test Item Value Reference Range Interpretation Comments Reagin Ab [Presence] in Serum by non reactive non reactive RPR (test code = 17739-0) [facility]Hep[facility] B virus surface Ag [Presence] in Serum or Plasma by [id number] 00:00:00 Test Item Value Reference Range Interpretation Comments Hepatitis B virus surface Ag negative negative [Presence] in Serum or Plasma by Immunoassay (test code = 5196-1) [facility]2 Ab+HIV1 p24 Ag [Presence] in Serum or Plasma by [id number] 00:00:00 Test Item Value Reference Range Interpretation Comments HIV 1+2 Ab+HIV1 p24 Ag non reactive non reactive [Presence] in Serum or Plasma by Immunoassay (test code = 48519-1) [facility] Auto Differential panel - Blood 2021-04-20 00:00:00 Test Item Value Reference Range Interpretation Comments Leukocytes [#/volume] in Blood 7.8 x10e3/uL 3.4-10.8 by Automated count (test code = 6690-2) Erythrocytes [#/volume] in 3.50 x10e6/uL 3.77-5.28 L Blood by Automated count (test code = 789-8) Hemoglobin [Mass/volume] in 10.8 g/dL 11.1-15.9 L Blood (test code = 718-7) Hematocrit [Volume Fraction] of 32.1 % 34.0-46.6 L Blood by Automated count (test code = 4544-3) MCV [Entitic volume] by 92 fL 79-97 Automated count (test code = 787-2) MCH [Entitic mass] by Automated 30.9 pg 26.6-33.0 count (test code = 785-6) MCHC [Mass/volume] by Automated 33.6 g/dL 31.5-35.7 count (test code = 786-4) Erythrocyte distribution width 12.5 % 11.7-15.4 [Ratio] by Automated count (test code = 788-0) Platelets [#/volume] in Blood 233 x10e3/uL 150-450 by Automated count (test code = 777-3) Neutrophils/100 leukocytes in 73 % not estab. Blood by Automated count (test code = 770-8) Lymphocytes/100 leukocytes in 17 % not estab. Blood by Automated count (test code = 736-9) Monocytes/100 leukocytes in 9 % not estab. Blood by Automated count (test code = 5905-5) Eosinophils/100 leukocytes in 1 % not estab. Blood by Automated count (test code = 713-8) Basophils/100 leukocytes in 0 % not estab. Blood by Automated count (test code = 706-2) immature cells (test code = rectifying operator immature cells) Neutrophils [#/volume] in Blood 5.7 x10e3/uL 1.4-7.0 by Automated count (test code = 751-8) Lymphocytes [#/volume] in Blood 1.3 x10e3/uL 0.7-3.1 by Automated count (test code = 731-0) Monocytes [#/volume] in Blood 0.7 x10e3/uL 0.1-0.9 by Automated count (test code = 742-7) Eosinophils [#/volume] in Blood 0.1 x10e3/uL 0.0-0.4 by Automated count (test code = 711-2) Basophils [#/volume] in Blood 0.0 x10e3/uL 0.0-0.2 by Automated count (test code = 704-7) Immature granulocytes/100 0 % not estab. leukocytes in Blood by Automated count (test code = 65479-2) Immature granulocytes 0.0 x10e3/uL 0.0-0.1 [#/volume] in Blood by Automated count (test code = 84189-1) Nucleated erythrocytes/100 rectifying operator leukocytes [Ratio] in Blood by Automated count (test code = 21196-5) Morphology [Interpretation] in rectifying operator Blood Narrative (test code = 78184-1) [facility] [Presence] in Serum by RPR 2021-04-20 00:00:00 Test Item Value Reference Range Interpretation Comments Reagin Ab [Presence] in Serum by non reactive non reactive RPR (test code = 26786-4) [facility]Hep[facility] B virus surface Ag [Presence] in Serum or Plasma by [id number] 00:00:00 Test Item Value Reference Range Interpretation Comments Hepatitis B virus surface Ag negative negative [Presence] in Serum or Plasma by Immunoassay (test code = 5196-1) [facility] Ab+HIV1 p24 Ag [Presence] in Serum or Plasma by [id number] 00:00:00 Test Item Value Reference Range Interpretation Comments HIV 1+2 Ab+HIV1 p24 Ag non reactive non reactive [Presence] in Serum or Plasma by Immunoassay (test code = 14010-0) [facility] W Auto Differential panel - Blood 2021-04-20 00:00:00 Test Item Value Reference Range Interpretation Comments Leukocytes [#/volume] in Blood 7.8 x10e3/uL 3.4-10.8 by Automated count (test code = 6690-2) Erythrocytes [#/volume] in 3.50 x10e6/uL 3.77-5.28 L Blood by Automated count (test code = 789-8) Hemoglobin [Mass/volume] in 10.8 g/dL 11.1-15.9 L Blood (test code = 718-7) Hematocrit [Volume Fraction] of 32.1 % 34.0-46.6 L Blood by Automated count (test code = 4544-3) MCV [Entitic volume] by 92 fL 79-97 Automated count (test code = 787-2) MCH [Entitic mass] by Automated 30.9 pg 26.6-33.0 count (test code = 785-6) MCHC [Mass/volume] by Automated 33.6 g/dL 31.5-35.7 count (test code = 786-4) Erythrocyte distribution width 12.5 % 11.7-15.4 [Ratio] by Automated count (test code = 788-0) Platelets [#/volume] in Blood 233 x10e3/uL 150-450 by Automated count (test code = 777-3) Neutrophils/100 leukocytes in 73 % not estab. Blood by Automated count (test code = 770-8) Lymphocytes/100 leukocytes in 17 % not estab. Blood by Automated count (test code = 736-9) Monocytes/100 leukocytes in 9 % not estab. Blood by Automated count (test code = 5905-5) Eosinophils/100 leukocytes in 1 % not estab. Blood by Automated count (test code = 713-8) Basophils/100 leukocytes in 0 % not estab. Blood by Automated count (test code = 706-2) immature cells (test code = rectifying operator immature cells) Neutrophils [#/volume] in Blood 5.7 x10e3/uL 1.4-7.0 by Automated count (test code = 751-8) Lymphocytes [#/volume] in Blood 1.3 x10e3/uL 0.7-3.1 by Automated count (test code = 731-0) Monocytes [#/volume] in Blood 0.7 x10e3/uL 0.1-0.9 by Automated count (test code = 742-7) Eosinophils [#/volume] in Blood 0.1 x10e3/uL 0.0-0.4 by Automated count (test code = 711-2) Basophils [#/volume] in Blood 0.0 x10e3/uL 0.0-0.2 by Automated count (test code = 704-7) Immature granulocytes/100 0 % not estab. leukocytes in Blood by Automated count (test code = 53047-5) Immature granulocytes 0.0 x10e3/uL 0.0-0.1 [#/volume] in Blood by Automated count (test code = 00826-7) Nucleated erythrocytes/100 rectifying operator leukocytes [Ratio] in Blood by Automated count (test code = 87446-6) Morphology [Interpretation] in rectifying operator Blood Narrative (test code = 63337-2) [facility] [Presence] in Serum by RPR 2021-04-20 00:00:00 Test Item Value Reference Range Interpretation Comments Reagin Ab [Presence] in Serum by non reactive non reactive RPR (test code = 66371-8) [facility] virus surface Ag [Presence] in Serum or Plasma by Rmlhwngspir7245-39-40 00:00:00 Test Item Value Reference Range Interpretation Comments Hepatitis B virus surface Ag negative negative [Presence] in Serum or Plasma by Immunoassay (test code = 5196-1) [facility] Ab+HIV1 p24 Ag [Presence] in Serum or Plasma by [id number] 00:00:00 Test Item Value Reference Range Interpretation Comments HIV 1+2 Ab+HIV1 p24 Ag non reactive non reactive [Presence] in Serum or Plasma by Immunoassay (test code = 06410-8) [facility]Urinal[facility] macro (dipstick) panel - [id number] 10:41:00 Test Item Value Reference Range Interpretation Comments Leukocytes (test code = NG Leukocytes) Nitrite (test code = Nitrite) NEG Urobilinogen (test code = 0.2 Urobilinogen) Protein (test code = Protein) NEG pH (test code = pH) 6.5 NEG Blood (test code = Blood) NEG Specific Anderson (test code = 1.015 Specific Anderson) Ketone (test code = Ketone) NEG Bilirubin (test code = NEG Bilirubin) Glucose (test code = Glucose) NEG Appearance (test code = CLEAR YELLOW Appearance) [facility] (dipstick) panel - [id number] 10:41:00 Test Item Value Reference Range Interpretation Comments Leukocytes (test code = NG Leukocytes) Nitrite (test code = Nitrite) NEG Urobilinogen (test code = 0.2 Urobilinogen) Protein (test code = Protein) NEG pH (test code = pH) 6.5 NEG Blood (test code = Blood) NEG Specific Anderson (test code = 1.015 Specific Anderson) Ketone (test code = Ketone) NEG Bilirubin (test code = NEG Bilirubin) Glucose (test code = Glucose) NEG Appearance (test code = CLEAR YELLOW Appearance) [facility] or Plasma --1 hour post 50 g glucose [id number] 00:00:00 Test Item Value Reference Range Interpretation Comments Glucose [Mass/volume] in Serum or 87 mg/dL 65-139 Plasma --1 hour post 50 g glucose PO (test code = 1504-0) [facility]] in Serum or Plasma --1 hour post 50 g glucose [id number] 00:00:00 Test Item Value Reference Range Interpretation Comments Glucose [Mass/volume] in Serum or 87 mg/dL 65-139 Plasma --1 hour post 50 g glucose PO (test code = 1504-0) [facility] macro (dipstick) panel - [id number] 09:44:00 Test Item Value Reference Range Interpretation Comments Leukocytes (test code = 2+ Leukocytes) Nitrite (test code = Nitrite) neg Urobilinogen (test code = 0.2 Urobilinogen) Protein (test code = Protein) neg pH (test code = pH) 6.5 Blood (test code = Blood) neg Specific Anderson (test code = 1.020 Specific Anderson) Ketone (test code = Ketone) neg Bilirubin (test code = Bilirubin) neg Glucose (test code = Glucose) neg Appearance (test code = turbine Appearance) Color (test code = Color) dark color [facility] (dipstick) panel - [id number] 09:44:00 Test Item Value Reference Range Interpretation Comments Leukocytes (test code = 2+ Leukocytes) Nitrite (test code = Nitrite) neg Urobilinogen (test code = 0.2 Urobilinogen) Protein (test code = Protein) neg pH (test code = pH) 6.5 Blood (test code = Blood) neg Specific Anderson (test code = 1.020 Specific Anderson) Ketone (test code = Ketone) neg Bilirubin (test code = Bilirubin) neg Glucose (test code = Glucose) neg Appearance (test code = turbine Appearance) Color (test code = Color) dark color [facility] identified [facility] Urine by [id number] 00:00:00 Test Item Value Reference Range Interpretation Comments culture, specimen number: urine/sensitivity on [id number] all (test code = culture, urine/sensitivity on all) [facility] Urine by [id number] 00:00:00 Test Item Value Reference Range Interpretation Comments culture, specimen number: urine/sensitivity on [id number] all (test code = culture, urine/sensitivity on all) [facility] (dipstick) panel - [id number] 09:03:00 Test Item Value Reference Range Interpretation Comments Leukocytes (test code = Leukocytes) 3+ Nitrite (test code = Nitrite) NEG Urobilinogen (test code = Urobilinogen) 0.2 Protein (test code = Protein) 1+ pH (test code = pH) 7.5 Blood (test code = Blood) NEG Specific Anderson (test code = Specific 1.015 Anderson) Ketone (test code = Ketone) NEG Bilirubin (test code = Bilirubin) NEG Glucose (test code = Glucose) NEG [facility]) panel - [id number] 09:03:00 Test Item Value Reference Range Interpretation Comments Leukocytes (test code = Leukocytes) 3+ Nitrite (test code = Nitrite) NEG Urobilinogen (test code = Urobilinogen) 0.2 Protein (test code = Protein) 1+ pH (test code = pH) 7.5 Blood (test code = Blood) NEG Specific Anderson (test code = Specific 1.015 Anderson) Ketone (test code = Ketone) NEG Bilirubin (test code = Bilirubin) NEG Glucose (test code = Glucose) NEG [facility] U[facility] by [id number] 00:00:00 Test Item Value Reference Range Interpretation Comments culture, specimen number: urine/sensitivity on [id number] all (test code = culture, urine/sensitivity on all) [facility] Urine by [id number] 00:00:00 Test Item Value Reference Range Interpretation Comments culture, specimen number: urine/sensitivity on [id number] all (test code = culture, urine/sensitivity on all) [facility] (dipstick) panel - [id number] 09:22:16 Test Item Value Reference Range Interpretation Comments Leukocytes (test code = trace Leukocytes) Nitrite (test code = Nitrite) neg Urobilinogen (test code = 0.2 Urobilinogen) Protein (test code = Protein) neg pH (test code = pH) 7.0 Blood (test code = Blood) neg Specific Anderson (test code = 1.015 Specific Anderson) Ketone (test code = Ketone) neg Bilirubin (test code = Bilirubin) neg Glucose (test code = Glucose) neg Appearance (test code = turbid Appearance) Color (test code = Color) dark yellow [facility] (dipstick) panel - [id number] 09:22:16 Test Item Value Reference Range Interpretation Comments Leukocytes (test code = trace Leukocytes) Nitrite (test code = Nitrite) neg Urobilinogen (test code = 0.2 Urobilinogen) Protein (test code = Protein) neg pH (test code = pH) 7.0 Blood (test code = Blood) neg Specific Anderson (test code = 1.015 Specific Anderson) Ketone (test code = Ketone) neg Bilirubin (test code = Bilirubin) neg Glucose (test code = Glucose) neg Appearance (test code = turbid Appearance) Color (test code = Color) dark yellow [facility] (dipstick) panel - [id number] 09:22:16 Test Item Value Reference Range Interpretation Comments Leukocytes (test code = trace Leukocytes) Nitrite (test code = Nitrite) neg Urobilinogen (test code = 0.2 Urobilinogen) Protein (test code = Protein) neg pH (test code = pH) 7.0 Blood (test code = Blood) neg Specific Anderson (test code = 1.015 Specific Anderson) Ketone (test code = Ketone) neg Bilirubin (test code = Bilirubin) neg Glucose (test code = Glucose) neg Appearance (test code = turbid Appearance) Color (test code = Color) dark yellow [facility]Alpha-1-Fetoprotein panel - Serum or [id number] 00:00:00 Test Item Value Reference Range Interpretation Comments results (test code = report results) Xnhoo-0-Hfkdbfcqjvk *screen negative* interpretation in Serum or Plasma (test code = 51413-5) Gestational age (test code 15.9 weeks = 79765-6) Gestational age method LMP (test code = 84344-6) Age at delivery (test code 22.4 yr = 57342-9) Mother's race (test code = 29878-5) Body weight (test code = 142 [lb av] 23484-9) Insulin dependent diabetes no mellitus [Presence] (test code = 30972-2) Multiple (test no code = 16443-2) Ficpz-2-Mlpnwbwttpt 35.8 NG/mL [Mass/volume] in Serum or Plasma (test code = 1834-1) Zsdrr-9-Chmttrixroz 1.05 [Multiple of the median] adjusted in Serum or Plasma (test code = 88813-7) Neural tube defect risk 22309 [Likelihood] in Fetus (test code = 72376-7) Pqldk-7-Dpyhzefmnvi comment interpretation in Serum or Plasma Narrative (test code = 52924-6) comment: (test code = comment comment:) Laboratory report (test . code = 91787-9) [facility]Fetoprotein panel - Serum or [id number] 00:00:00 Test Item Value Reference Range Interpretation Comments results (test code = report results) Ijsoi-9-Iruamvugtod *screen negative* interpretation in Serum or Plasma (test code = 15501-7) Gestational age (test code 15.9 weeks = 23578-2) Gestational age method LMP (test code = 55160-7) Age at delivery (test code 22.4 yr = 09535-1) Mother's race (test code = 09885-2) Body weight (test code = 142 [lb av] 11972-2) Insulin dependent diabetes no mellitus [Presence] (test code = 68440-6) Multiple (test no code = 21658-4) Rrkxm-3-Tudgculqdlc 35.8 NG/mL [Mass/volume] in Serum or Plasma (test code = 1834-1) Qsbtu-6-Fevcbcbeqwl 1.05 [Multiple of the median] adjusted in Serum or Plasma (test code = 28064-9) Neural tube defect risk 85885 [Likelihood] in Fetus (test code = 01593-8) Qtmkv-4-Garxwlvhlbd comment interpretation in Serum or Plasma Narrative (test code = 96977-8) comment: (test code = comment comment:) Laboratory report (test . code = 00963-8) [facility] U[facility] by [id number] 00:00:00 Test Item Value Reference Range Interpretation Comments Bacteria identified in Urine by no growth Culture (test code = 630-4) [facility] identified in Urine by [id number] 00:00:00 Test Item Value Reference Range Interpretation Comments Bacteria identified in Urine by no growth Culture (test code = 630-4) [facility] macro (dipstick) panel - [id number] 09:18:00 Test Item Value Reference Range Interpretation Comments Leukocytes (test code = 3+ Leukocytes) Nitrite (test code = Nitrite) NEG Urobilinogen (test code = 0.2 Urobilinogen) Protein (test code = Protein) NEG pH (test code = pH) 6.0 Blood (test code = Blood) NEG Specific Anderson (test code = 1.030 Specific Anderson) Ketone (test code = Ketone) NEG Bilirubin (test code = Bilirubin) NEG Glucose (test code = Glucose) NEG Appearance (test code = TURBID Appearance) Color (test code = Color) DARK YELLOW [facility] macro (dipstick) panel - [id number] 09:18:00 Test Item Value Reference Range Interpretation Comments Leukocytes (test code = 3+ Leukocytes) Nitrite (test code = Nitrite) NEG Urobilinogen (test code = 0.2 Urobilinogen) Protein (test code = Protein) NEG pH (test code = pH) 6.0 Blood (test code = Blood) NEG Specific Anderson (test code = 1.030 Specific Anderson) Ketone (test code = Ketone) NEG Bilirubin (test code = Bilirubin) NEG Glucose (test code = Glucose) NEG Appearance (test code = TURBID Appearance) Color (test code = Color) DARK YELLOW [facility] macro (dipstick) panel - [id number] 13:23:00 Test Item Value Reference Range Interpretation Comments Leukocytes (test code = NEG Leukocytes) Nitrite (test code = Nitrite) NEG Urobilinogen (test code = 0.2 Urobilinogen) Protein (test code = Protein) NEG pH (test code = pH) 6.0 Blood (test code = Blood) NEG Specific Anderson (test code = 1.025 Specific Anderson) Ketone (test code = Ketone) NEG Bilirubin (test code = Bilirubin) NEG Glucose (test code = Glucose) NEG Appearance (test code = TURBID Appearance) Color (test code = Color) DARK YELLOW [facility] macro (dipstick) panel - [id number] 09:09:00 Test Item Value Reference Range Interpretation Comments Leukocytes (test code = NEG Leukocytes) Nitrite (test code = Nitrite) NEG Urobilinogen (test code = 0.2 Urobilinogen) Protein (test code = Protein) NEG pH (test code = pH) 6.0 Blood (test code = Blood) NEG Specific Anderson (test code = 1.020 Specific Anderson) Ketone (test code = Ketone) NEG Bilirubin (test code = NEG Bilirubin) Glucose (test code = Glucose) NEG Appearance (test code = CLEAR Appearance) Color (test code = Color) LIGHT YELLOW [facility] Urine by [id number] 00:00:00 Test Item Value Reference Range Interpretation Comments culture, specimen number: urine/sensitivity on [id number] all (test code = culture, urine/sensitivity on all) [facility]Blood [facility] antibody screen [Presence] in Serum or [id number] 00:00:00 Test Item Value Reference Range Interpretation Comments antibody screen (test code = negative negative antibody screen) [facility]CBC W Auto Differential panel - Blood 2020-10-11 00:00:00 Test Item Value Reference Range Interpretation Comments WBC (test code = WBC) 6.9 K/uL 3.5-10.0 RBC (test code = RBC) 3.88 M/uL 3.80-5.20 hemoglobin (test code = hemoglobin) 12.0 g/dL 12.0-16.0 hematocrit (test code = hematocrit) 34.8 % 35.0-46.0 L MCV (test code = MCV) 89.7 fL 80.0-99.0 MCH (test code = MCH) 30.9 pg 25.0-34.0 MCHC (test code = MCHC) 34.5 g/dL 31.0-36.0 RDW (test code = RDW) 12.2 % 11.5-15.0 neutrophils (test code = 72.8 % 40.0-75.0 neutrophils) lymphocytes (test code = 16.9 % 20.0-45.0 L lymphocytes) monocytes (test code = monocytes) 8.2 % 4.0-12.0 eosinophils (test code = 1.5 % 0.0-7.0 eosinophils) basophils (test code = basophils) 0.6 % 0.0-2.0 platelet count (test code = 293 K/uL 130-400 platelet count) [facility], [id number] 00:00:00 Test Item Value Reference Range Interpretation Comments rubeola IgG antibody (test code = 40.1 AU/mL see below rubeola IgG antibody) mumps virus IgG (test code = mumps <5.0 see below L virus IgG) rubella antibody screen (test code 91 IU/mL see below = rubella antibody screen) rubella IgG interp (test code = reactive reactive rubella IgG interp) varicella zoster IgG (test code = 337 index see below varicella zoster IgG) [facility]Re[facility] Ab [Presence] in Serum by RPR 2020-10-11 00:00:00 Test Item Value Reference Range Interpretation Comments RPR (test code = RPR) non-reactive non-reactive RPR titer (test code = RPR not indic. not indic. titer) [facility]AB[facility] & Rh group [Type] in Blood 2020-10-11 00:00:00 Test Item Value Reference Range Interpretation Comments blood type and Rh (test code = O positive blood type and Rh) [facility]HIV [facility]2 Ab [Presence] in Serum or Plasma by [id number] 00:00:00 Test Item Value Reference Range Interpretation Comments HIV 1/2 4TH gen, rflx conf (test non-reactive non-reactive code = HIV 1/2 4TH gen, rflx conf) [facility] [Presence] in Blood by Light [id number] 00:00:00 Test Item Value Reference Range Interpretation Comments sickle cell rflx elect (test code = negative negative sickle cell rflx elect) [facility] panel - Serum 2020-10-11 00:00:00 Test Item Value Reference Range Interpretation Comments hepatitis A total Ab (test code reactive non-reactive A = hepatitis A total Ab) hepatitis B surf Ag (test code = non-reactive non-reactive hepatitis B surf Ag) hep B core total Ab (test code = non-reactive non-reactive hep B core total Ab) hepatitis B surface Ab (test non-reactive non-reactive code = hepatitis B surface Ab) hepatitis C antibody (test code non-reactive non-reactive = hepatitis C antibody) interpretation hepatitis A: (note) (test code = interpretation hepatitis A:) interpretation hepatitis B: (note) (test code = interpretation hepatitis B:) interpretation hepatitis C: (note) (test code = interpretation hepatitis C:) [facility] A virus IgM Ab [Presence] in [id number] 00:00:00 Test Item Value Reference Range Interpretation Comments hepatitis A IgM (test code = non-reactive non-reactive hepatitis A IgM) [facility]Drugs identified in Urine by Screen [id number] 00:00:00 Test Item Value Reference Range Interpretation Comments amphetamines (test code = negative negative amphetamines) barbiturates (test code = negative negative barbiturates) benzodiazepines (test code = negative negative benzodiazepines) cannabinoids (test code = negative negative cannabinoids) cocaine metabolite (test code = negative negative cocaine metabolite) opiates (test code = opiates) negative negative oxycodone (test code = oxycodone) negative negative phencyclidine (test code = negative negative phencyclidine) methadone (test code = methadone) negative negative buprenorphine (test code = negative negative buprenorphine) [facility] vaginosis and vaginitis DNA panel - Vaginal fluid by Probe with signal [id number] 00:00:00 Test Item Value Reference Range Interpretation Comments cale species (test code = cale positive negative A species) g. vaginalis (test code = g. positive negative A vaginalis) T. vaginalis (test code = T. negative negative vaginalis) [facility]Chlamydia trachomatis+Neisseria gonorrhoeae DNA [Presence] in Urine by JAVIER with probe [id number] 00:00:00 Test Item Value Reference Range Interpretation Comments gonorrhea, naat (test code = negative negative gonorrhea, naat) chlamydia, naat (test code = negative negative chlamydia, naat) [facility]CBC (INCLUDES AUTOMATED DIFFERENTIAL)*[id number] 06:58:00 Test Item Value Reference Range Interpretation Comments WBC (test code = WBC) 11.9 10\S\3/uL [...] RBC MORPH (test code = NORMAL WRBCMOR) SYPHILIS SCREENING [id number] 05:57:00 Test Item Value [...] = HBSAG) NON-REACTIVE NON-REACTIVE CBC (INCLUDES AUTOMATED DIFFERENTIAL)*[id number] 20:24:00 Test Item Value Reference Range Interpretation [...]
--- NOTE | 2023-07-08 19:31 | EDPHYS ---
Physician Documentation [facility] Name: Danette Sosa Age: 22 yrs Sex: Female : 2000 Arrival Date: 07/08/2023 Time: 18:46 Bed 20 Private MD: ED Physician Maurizio Ruiz HPI: 07/08 19:00 This 22 yrs old Female presents to ER via Ambulatory with complaints of Foreign Body In cp Ear. 19:00 The patient presents with a foreign body sensation, presumably from an insect. cp 19:00 The complaints affect the left ear canal. Onset: The symptoms/episode began/occurred 9 cp day(s) ago. Associated signs and symptoms: Pertinent positives: pain, decreased hearing, Pertinent negatives: fever, rhinorrhea, sinus trouble, sore throat. The patient has been recently seen by a physician: out [place] Town, in [place]. Patient reports abreu was partially removed from left ear canal and she has been taking prescribed Augmentin antibiotic. Historical: - Allergies: 18:56 No Known Allergies; ll1 - PMHx: 18:56 None; ll1 - PSHx: 18:56 staph infection R breast; section; ll1 - Immunization history:: Adult Immunizations up to date. - Social history:: Smoking status: Patient reports the use of cigarette tobacco products, denies chronic smoking, but will smoke occasionally, Reported history of juuling and/or vaping. ROS: 19:05 Constitutional: Negative for body aches, chills, fever, poor PO intake. cp 19:05 Eyes: Negative for injury, pain, redness, and discharge. cp 19:05 ENT: Positive for ear pain, hearing loss, left ear canal foreign body, Negative for sore throat, difficulty swallowing, difficulty handling secretions. 19:05 Cardiovascular: Negative for chest pain, palpitations. 19:05 Respiratory: Negative for cough, shortness of breath, wheezing. 19:05 Abdomen/GI: Negative for abdominal pain, nausea, vomiting, and diarrhea. 19:05 Neuro: Negative for altered mental status, dizziness, headache, weakness. 19:05 All other systems are negative. Exam: 19:10 Constitutional: The patient appears in no acute distress, alert, awake, non-toxic, well cp developed, well nourished. 19:10 Head/Face: Normocephalic, atraumatic. cp 19:10 Eyes: Periorbital structures: appear normal, Conjunctiva: normal, no exudate, no injection, Sclera: no appreciated abnormality, Lids and lashes: appear normal, bilaterally. 19:10 ENT: External ear(s): are unremarkable, Ear canal(s): bleeding, that is minimal, in the left canal, erythema, of the left canal, foreign body, pieces of body of brown colored insect, scant purulent drainage noted, in the left external ear canal, Examination of the other ear shows no obvious abnormality, Mouth: Lips: moist, Oral mucosa: pink and intact, moist, Posterior pharynx: is normal, airway is patent, no erythema, no exudate. 19:10 Neck: ROM/movement: is normal, is supple, without pain, no range of motions limitations. 19:10 Chest/axilla: Inspection: normal. 19:10 Cardiovascular: Rate: normal. 19:10 Respiratory: the patient does not display signs of respiratory distress, Respirations: normal, no use of accessory muscles, no retractions, labored breathing, is not present, Breath sounds: are clear throughout, no decreased breath sounds, no stridor, no wheezing. Vital Signs: 18:53 BP 118 / 75; Pulse 86; Resp 16; Temp 98.2; Pulse Ox 100% ; Weight 59.87 kg; Height 5 ll1 ft. 7 in. ; Pain 6/10; 19:42 BP 111 / 74; Pulse 85; Resp 18; Pulse Ox 98% on R/A; kl 18:53 Body Mass Index 20.67 (59.87 kg, 170.18 cm) ll1 18:53 Pain Scale: Adult ll1 MDM: 18:58 Patient medically screened. cp 19:15 Differential diagnosis: otitis media, otitis externa, ruptured TM, foreign body. cp 19:30 Data reviewed: vital signs, nurses notes. cp 19:30 Counseling: I had a detailed discussion with the patient and/or guardian regarding the cp historical points, exam findings, and any diagnostic results supporting the discharge/admit diagnosis, the need for outpatient follow up, for definitive care, an ENT specialist. ED course: was able to remove several small pieces of insect from left EAC with alligator clamps, but pieces remain and patient instructed to f/u with ENT. Administered Medications: No medications were administered Disposition Summary: 07/08/23 19:30 Discharge Ordered Location: Home cp Problem: new cp Symptoms: have improved cp Condition: Stable cp Diagnosis - Foreign body in left ear cp Followup: cp - With: Neisha Paige MD - When: 2 - 3 days - Reason: Recheck today's complaints Discharge Instructions: - Discharge Summary Sheet cp - Ear Foreign Body cp Forms: - Medication Reconciliation Form cp - Thank You Letter cp - Antibiotic Education cp - Prescription Opioid Use cp - Patient Portal Instructions cp - Leadership Thank You Letter cp Prescriptions: - Ciprodex 0.3-0.1 % Otic drops,suspension - instill 4 drops by OTIC route every 12 hours for 7 days , for ears ONLY; 1 cp unit; Refills: 0, Product Selection Permitted Addendum: 07/10/2023 22:56 Co-signature as Attending Physician, Maurizio Ruiz MD I agree with the assessment s p4 and plan of care. I reviewed the patient's care provided by the Advanced Practice Provider and agree with the diagnosis and treatment plan. Signatures: Andre Veliz PA PA cp Lewis, Lynsay, RN RN ll1 Maurizio Ruiz MD MD sp4
--- NOTE | 2023-07-08 19:31 | ER ---
Nurse's Notes [facility] Name: Danette Sosa Age: 22 yrs Sex: Female : 2000 Arrival Date: 07/08/2023 Time: 18:46 Bed 20 Private MD: Diagnosis: Foreign body in left ear Presentation: 07/08 18:53 Chief complaint: Patient states: States she has a abreu in her L ear for the past 8-9 ll1 days. Went to [place] that night. Pain is worse, decreased hearing, and ringing now. Coronavirus screen: Vaccine status: Patient reports being unvaccinated. Client denies travel out of the [place] in the last 14 days. At this time, the client does not indicate any symptoms associated with coronavirus-19. Ebola Screen: Patient denies travel to an Ebola-affected area in the 21 days before illness onset. Initial Sepsis Screen: Does the patient meet any 2 criteria? No. Patient's initial sepsis screen is negative. Does the patient have a suspected source of infection? Yes: Other: ear. Risk Assessment: Do you want to hurt yourself or someone else? Patient reports no desire to harm self or others. Onset of symptoms was July 01, 2023. 18:53 Method Of Arrival: Ambulatory ll1 18:53 Acuity: DANNY 4 ll1 Triage Assessment: 18:59 General: Appears uncomfortable, Behavior is calm, cooperative, appropriate for age. ll1 Pain: Complains of pain in left ear Pain currently is 6 out of 10 on a pain scale. Quality of pain is described as aching. EENT: Reports decreased hearing pain ringing. Historical: - Allergies: 18:56 No Known Allergies; ll1 - PMHx: 18:56 None; ll1 - PSHx: 18:56 staph infection R breast; section; ll1 - Immunization history:: Adult Immunizations up to date. - Social history:: Smoking status: Patient reports the use of cigarette tobacco products, denies chronic smoking, but will smoke occasionally, Reported history of juuling and/or vaping. Screenin:41 [facility] ED Fall Risk Assessment (Adult) History of falling in the last 3 months, kl including since admission No falls in past 3 months (0 pts) Confusion or Disorientation No (0 pts) Intoxicated or Sedated No (0 pts) Impaired Gait No (0 pts) Mobility Assist Device Used No (0 pt) Altered Elimination No (0 pt) Score/Fall Risk Level 0 - 2 = Low Risk Oriented to surroundings, Maintained a safe environment. Abuse screen: Denies threats or abuse. Nutritional screening: No deficits noted. Tuberculosis screening: No symptoms or risk factors identified. Assessment: 19:41 Reassessment: Patient appears in no apparent distress at this time. Patient denies pain kl at this time. Patient states feeling better. Patient states symptoms have improved. Vital Signs: 18:53 BP 118 / 75; Pulse 86; Resp 16; Temp 98.2; Pulse Ox 100% ; Weight 59.87 kg; Height 5 ll1 ft. 7 in. ; Pain 6/10; 19:42 BP 111 / 74; Pulse 85; Resp 18; Pulse Ox 98% on R/A; kl 18:53 Body Mass Index 20.67 (59.87 kg, 170.18 cm) ll1 18:53 Pain Scale: Adult ll1 ED Course: 18:49 Patient arrived in ED. rg4 18:55 Triage completed. ll1 18:56 Arm band placed on Patient placed in an exam room, on a stretcher. ll1 18:58 [facility] cp 18:58 Maurizio Ruiz MD is Attending Physician. cp 19:27 Neisha Paige MD is Referral Physician. cp 19:41 Assist provider with foreign body removal from ear canal. using tweezers, Performed by garrett GREEN Patient tolerated well. Patient did not have IV access during this emergency room visit. Administered Medications: No medications were administered Medication: 19:41 VIS not applicable for this client. kl Outcome: 19:30 Discharge ordered by . cp 19:42 Discharged to home ambulatory. kl 19:42 Condition: stable 19:42 Discharge instructions given to patient, Instructed on discharge instructions, follow up and referral plans. Demonstrated understanding of instructions, follow-up care, medications, Prescriptions given X 1. 19:42 Patient left the ED. Signatures: Helga Palencia RN RN Andre Andre PA PA cp Garcia, Rubi rg4 Lee Palencia RN RN ll1
[2023-07-08 19:54] VITALS: TEMP 98.2
[2023-07-08 19:55] VITALS: BP 111/74; O2SAT 98
== END 2023-07-08 19:42 | disposition home or self-care (01) ==
LOC: ER 18:46
DX: T16.2XXA Foreign body in left ear, initial encounter (principal)
CPT/HCPCS: 99283

== ENCOUNTER 2024-10-13 00:08 | Emergency (ER) | payer OTHER, SELFPAY ==
--- OUTSIDE RECORDS SUMMARY | 2024-10-13 00:14 | XMS REPORT | Continuity of Care Document ---
Author Name Unknown Address [address] [facility] [place] [address] [facility] thconnect Address [address] [facility] [address] [place] [address] Care Team Providers Care Jigsawyer Name Role Phone VANDANA VARGAS Attending Clinician Yevgeniy Ramos MD Attending Clinician [phone] YEVGENIY AGUILAR Attending Clinician Un available GRACY CHOWDARY Attending Clinician UnavailROBERT Bass Attending Clinician Unavailable PATEL_NILESH Attending Clinician Unavailable ESAU RIVERA Attending Clinician Unavailable KAILYN GALVAN Attending Clinician Unavailab justa Linares_Ibitoye_Olubu Attending Clinician Unavaila ADELINE Dolan Attending Clinician Unavailable KRYSTYNA BROWN Attending Clinician Unavailable Zuniga_S Attending Clinician Unavailable YUSUF ROBERTS Attending Clinician Unavailab justa AHMADI Attending Clinician Unavailable DR KAITLYN GILBERT Attending Clinician Unavailable BASSAM PALACIOS Attending Clinician Unavaila KAITLYN Payne Attending Clinician Unavailab MUSHTAQ Spangler Attending Clinician Unavailable ROBBIE Attending Clinician Unavailable JIM JOY Attending Clinician Unavailable GAL WILEY Attending Clinician Unavailable DR JOSSE CAREY Attending Clinicia n Unavailable JOSSE CAREY Attending Clinician UnaMUSHTAQ Berrios Attending Clinician UnavailMARIELY Lopez Attending Clinician Unavailable ELISHA BARRETO Attending Clinician Unavailable CUCO WILKINSON Attending Clinician UnaVERA Mcdonough Attending Clinician Unavailable ZULY BLAIR Attending Clinician Unavailable LEX KUMAR Attending Clinician Unavailab YEVGENIY Pop Admitting Clinician Un available PATEL_NILESH Admitting Clinician Unavailable Ayeni_Ibitoye_Olubu Admitting Clinician Unavaila dimas Zuniga_S Admitting Clinician Unavailable GALDINO Admitting Clinician Unavailable DR KAITLYN GILBERT Admitting Clinician Unavailable ROBBIE Admitting Clinician Unavailable DR JOSSE CAREY Admitting Clinicia n Unavailable Payers Payer Name Policy Type Policy Number Effective Date Expirati on Date Source [facility] (MEDICAID HMO) [id number] 2018 00:00:00 2023 00:00:00 [facility] (MEDICAID HMO) [id number] 2018 00:00:00 2023 00:00:00 Problems Condition Name Condition Details Condition Category Status Onset Date Resolution Date Last Treatment Date Treating Clinician Comments Source Acute pharyngiti s Acute Pharyngiti s Problem Active 7 00:00: 00 [facility] Miscarriag e Miscarriag e Problem Active [facility] Uterine scar from previous surgery affecting Uterine Scar from Previous Surgery Affecting Problem Active [facility] Mental disorder in mother complicati ng Mental Disorder in Mother Complicati ng Problem Active [facility] Anemia in mother complicati ng childbirth Anemia in Mother Complicati ng Childbirth Problem Active [facility] Acute cystitis Acute Cystitis Problem Active [facility] Acute cervicitis Acute Cervicitis Problem Active [facility] Bacterial vaginosis Bacterial Vaginosis Problem Active [facility] Chlamydial cervicitis Chlamydial Cervicitis Problem Active [facility] Allergies, Adverse Reactions, Alerts Allergy Name Allergy Type Status Severity Reaction(s) Onset Date Inactive Date Treating Clinician Comments Source No Known Allergie s DA Active [facility] Social History Social Habit Start Date Stop Date Quantity Comments Source Sexual orientation [facility] History of tobacco use Cigarette Smoker [facility] History of Social function 2024-01-07 00:00:00 2024-01-07 00:00:00 [facility] Tobacco use and exposure 2024-01-07 00:00:00 2024-01-07 00:00:00 Smokeless tobacco non-user [facility] Alcoholic beverage intake 2024-01-07 00:00:00 2024-01-07 00:00:00 Ex-drinker (finding) [facility] Sex assigned at 2000 00:00:00 2000 00:00:00 [facility] Smoking Status Start Date Stop Date Source Light Tobacco Smoker [facility] Never Smoker [facility] Smokes tobacco daily 2024-01-07 00:00:00 [facility] Medications Ordered Medication Name Filled Medication Name Start Date Stop Date Current Medication? Ordering Clinician Indication Dosage Frequency Signature (SIG) Comments Components Source Multiple Vitamin (multivitam in) tablet 01-06 10:40: 35 Yes 1{tbl} QD Take 1 tablet by mouth 1 (one) time each day. [facility] norelgestro min-ethinyl estradiol (Ortho-Evra ) 150-35 MCG/24HR 305 00:00: 00 01-07 05:59 :00 No [id number] 1{patch } Place 1 patch on the skin 1 (one) time per week. Apply 1 patch to the skin weekly for 3 weeks. Then off for 1 week. [facility] Depo-Hand Coper a 150 mg/mL intramuscul ar syringe Inject 1 mL every 3 months by intramuscul ar route. Depo-Hand Coper a 150 mg/mL intramuscul ar syringe Inject 1 mL every 3 months by intramuscul ar route. No 1mL Depo-Prove ra 150 mg/mL intramuscu lar syringe Inject 1 mL every 3 months by intramuscu lar route. [facility] Zafemy 150 mcg-35 mcg/24 hr transdermal patch APPLY 1 PATCH TOPICALLY ONCE A WEEK FOR 3 WEEKS THEN OFF FOR 1 WEEK Zafemy 150 mcg-35 mcg/24 hr transdermal patch APPLY 1 PATCH TOPICALLY ONCE A WEEK FOR 3 WEEKS THEN OFF FOR 1 WEEK No Zafemy 150 mcg-35 mcg/24 hr transderma l patch APPLY 1 PATCH TOPICALLY ONCE A WEEK FOR 3 WEEKS THEN OFF FOR 1 WEEK [facility] amoxicillin 875 mg tablet Take 1 tablet every 12 hours by oral route for 10 days. amoxicillin 875 mg tablet Take 1 tablet every 12 hours by oral route for 10 days. No 1 Q12H amoxicilli n 875 mg tablet Take 1 tablet every 12 hours by oral route for 10 days. [facility] Medrol (Leoncio) 4 mg tablets in a dose pack Take 1 dose pk by oral route. Medrol (Leoncio) 4 mg tablets in a dose pack Take 1 dose pk by oral route. No 1dose pk(s) Medrol (Leoncio) 4 mg tablets in a dose pack Take 1 dose pk by oral route. [facility] Immunizations Ordered Immunization Name Filled Immunization Name Date Status Comments Source influenza, injectable, quadrivalent influenza, injectable, quadrivalent Unknown [facility]pleted [facility] Tdap - ML Tdap - ML Unknown Completed [facility] HPV, quadrivalent - ML HPV, quadrivalent - ML Unknown Completed [facility] Hep A, ped/adol, 2 dose - ML Hep A, ped/adol, 2 dose - ML Unknown [facility] meningococcal MCV4P - ML meningococcal MCV4P - ML Unknown [facility] varicella - ML varicella - ML Unknown [facility] Vital Signs Vital Name Observation Time Observation Value Comments S ource Body Weight 2024-03-12 00:00:00 134.2 [lb_av] [facility] Height 2024-03-12 00:00:00 67 [in_i] [facility] BP Systolic 2024-03-12 00:00:00 110 mm[Hg] [facility] BMI (Body Mass Index) 2024-03-12 00:00:00 21 kg/m2 [facility] BP Diastolic 2024-03-12 00:00:00 73 mm[Hg] [facility] Systolic blood pressure 2024-01-07 16:36:00 106 mm[Hg] [facility] Diastolic blood pressure 2024-01-07 16:36:00 60 mm[Hg] [facility] Heart rate 2024-01-07 16:36:00 94 /min [facility] Body temperature 2024-01-07 16:36:00 36.94 Nicole [facility] Body height 2024-01-07 16:36:00 [facility]6 [facility] Body weight 2024-01-07 16:36:00 [facility].153 [facility] BMI 2024-01-07 16:36:00 20.34 [facility] BP Systolic 2023-06-25 00:00:00 131 mm[Hg] [facility] Height 2023-06-25 00:00:00 67 [in_i] [facility] Body Weight 2023-06-25 00:00:00 132 [lb_av] [facility] BP Diastolic 2023-06-25 00:00:00 67 mm[Hg] [facility] BMI (Body Mass Index) 2023-06-25 00:00:00 20.7 kg/m2 [facility] BP Diastolic 2023-04-09 00:00:00 63 mm[Hg] [facility] Height 2023-04-09 00:00:00 67 [in_i] [facility] BMI (Body Mass Index) 2023-04-09 00:00:00 20.2 kg/m2 [facility] BP Systolic 2023-04-09 00:00:00 110 mm[Hg] [facility] Body Weight 2023-04-09 00:00:00 129 [lb_av] [facility] BP Diastolic 2023-01-15 00:00:00 73 mm[Hg] [facility] Height 2023-01-15 00:00:00 67 [in_i] Blair [facility] BMI (Body Mass Index) 2023-01-15 00:00:00 21.6 kg/m2 [facility] BP Systolic 2023-01-15 00:00:00 118 mm[Hg] [facility] Body Weight 2023-01-15 00:00:00 138 [lb_av] [facility] BP Diastolic 2022-06-01 00:00:00 72 mm[Hg] [facility] Height 2022-06-01 00:00:00 66 [in_i] [facility] BMI (Body Mass Index) 2022-06-01 00:00:00 21.8 kg/m2 [facility] BP Systolic 2022-06-01 00:00:00 96 mm[Hg] [facility] Body Weight 2022-06-01 00:00:00 2162 [oz_av] [facility] BP Diastolic 2021-07-04 00:00:00 67 mm[Hg] [facility] Height 2021-07-04 00:00:00 67 [in_i] [facility] BMI (Body Mass Index) 2021-07-04 00:00:00 21.8 kg/m2 [facility] BP Systolic 2021-07-04 00:00:00 107 mm[Hg] [facility] Body Weight 2021-07-04 00:00:00 139 [lb_av] [facility] BP Diastolic 2021-06-08 00:00:00 66 mm[Hg] [facility] Height 2021-06-08 00:00:00 67 [in_i] [facility] BMI (Body Mass Index) 2021-06-08 00:00:00 21.8 kg/m2 [facility] BP Systolic 2021-06-08 00:00:00 109 mm[Hg] [facility] Body Weight 2021-06-08 00:00:00 139.4 [lb_av] [facility] Height 2021-05-26 05:22:00 170.18 CM Weight 2021-05-26 05:22:00 71.66 KG BP Diastolic 2021-05-24 00:00:00 72 mm[Hg] [facility] Height 2021-05-24 00:00:00 67 [in_i] [facility] BMI (Body Mass Index) 2021-05-24 00:00:00 24.4 kg/m2 [facility] BP Systolic 2021-05-24 00:00:00 99 mm[Hg] [facility] Body Weight 2021-05-24 00:00:00 155.8 [lb_av] [facility] BP Diastolic 2021-05-16 00:00:00 73 mm[Hg] [facility] Height 2021-05-16 00:00:00 67 [in_i] [facility] BMI (Body Mass Index) 2021-05-16 00:00:00 24.6 kg/m2 [facility] BP Systolic 2021-05-16 00:00:00 113 mm[Hg] [facility] Body Weight 2021-05-16 00:00:00 156.8 [lb_av] [facility] BP Diastolic 2021-05-09 00:00:00 78 mm[Hg] [facility] Height 2021-05-09 00:00:00 67 [in_i] [facility] BMI (Body Mass Index) 2021-05-09 00:00:00 24.7 kg/m2 [facility] BP Systolic 2021-05-09 00:00:00 115 mm[Hg] [facility] Body Weight 2021-05-09 00:00:00 157.6 [lb_av] [facility] BP Diastolic 2021-05-03 00:00:00 77 mm[Hg] [facility] Height 2021-05-03 00:00:00 67 [in_i] [facility] BMI (Body Mass Index) 2021-05-03 00:00:00 24.5 kg/m2 [facility] BP Systolic 2021-05-03 00:00:00 106 mm[Hg] [facility] Body Weight 2021-05-03 00:00:00 156.6 [lb_av] [facility] BP Diastolic 2021-04-19 00:00:00 71 mm[Hg] [facility] Height 2021-04-19 00:00:00 67 [in_i] [facility] BMI (Body Mass Index) 2021-04-19 00:00:00 24.4 kg/m2 [facility] BP Systolic 2021-04-19 00:00:00 108 mm[Hg] [facility] Body Weight 2021-04-19 00:00:00 156 [lb_av] [facility] BP Diastolic 2021-03-29 00:00:00 74 mm[Hg] [facility] Height 2021-03-29 00:00:00 67 [in_i] [facility] BMI (Body Mass Index) 2021-03-29 00:00:00 24.7 kg/m2 [facility] BP Systolic 2021-03-29 00:00:00 116 mm[Hg] [facility] Body Weight 2021-03-29 00:00:00 158 [lb_av] [facility] BP Diastolic 2021-03-08 00:00:00 73 mm[Hg] [facility] Height 2021-03-08 00:00:00 67 [in_i] [facility] BMI (Body Mass Index) 2021-03-08 00:00:00 24.6 kg/m2 [facility] BP Systolic 2021-03-08 00:00:00 110 mm[Hg] [facility] Body Weight 2021-03-08 00:00:00 157 [lb_av] [facility] BP Diastolic 2021-02-08 00:00:00 73 mm[Hg] [facility] Height 2021-02-08 00:00:00 67 [in_i] [facility] BMI (Body Mass Index) 2021-02-08 00:00:00 23.3 kg/m2 [facility] BP Systolic 2021-02-08 00:00:00 104 mm[Hg] [facility] Body Weight 2021-02-08 00:00:00 149 [lb_av] [facility] BP Diastolic 2021-01-12 00:00:00 82 mm[Hg] [facility] Height 2021-01-12 00:00:00 67 [in_i] [facility] BMI (Body Mass Index) 2021-01-12 00:00:00 23.3 kg/m2 [facility] BP Systolic 2021-01-12 00:00:00 108 mm[Hg] [facility] Body Weight 2021-01-12 00:00:00 148.8 [lb_av] [facility] BP Diastolic 2020-12-15 00:00:00 74 mm[Hg] [facility] Height 2020-12-15 00:00:00 67 [in_i] [facility] BMI (Body Mass Index) 2020-12-15 00:00:00 22.2 kg/m2 [facility] BP Systolic 2020-12-15 00:00:00 117 mm[Hg] [facility] Body Weight 2020-12-15 00:00:00 142 [lb_av] [facility] BP Diastolic 2020-11-10 00:00:00 70 mm[Hg] [facility] Height 2020-11-10 00:00:00 67 [in_i] [facility] BMI (Body Mass Index) 2020-11-10 00:00:00 21.3 kg/m2 [facility] BP Systolic 2020-11-10 00:00:00 125 mm[Hg] [facility] Body Weight 2020-11-10 00:00:00 136 [lb_av] [facility] BP Diastolic 2020-10-10 00:00:00 62 mm[Hg] [facility] Height 2020-10-10 00:00:00 67 [in_i] [facility] BMI (Body Mass Index) 2020-10-10 00:00:00 21.6 kg/m2 [facility] BP Systolic 2020-10-10 00:00:00 124 mm[Hg] [facility] Body Weight 2020-10-10 00:00:00 138.2 [lb_av] [facility] BP Diastolic 2020-05-09 00:00:00 71 mm[Hg] [facility] Height 2020-05-09 00:00:00 67 [in_i] [facility] BMI (Body Mass Index) 2020-05-09 00:00:00 21 kg/m2 [facility] BP Systolic 2020-05-09 00:00:00 117 mm[Hg] [facility] Body Weight 2020-05-09 00:00:00 134.4 [lb_av] [facility] BP Diastolic 2019-10-07 00:00:00 70 mm[Hg] [facility] Height 2019-10-07 00:00:00 67 [in_i] [facility] BMI (Body Mass Index) 2019-10-07 00:00:00 21 kg/m2 [facility] BP Systolic 2019-10-07 00:00:00 124 mm[Hg] [facility] Body Weight 2019-10-07 00:00:00 133.8 [lb_av] [facility] Height 2018-08-19 02:52:00 170.18 CM Weight 2018-08-19 02:52:00 73.02 KG Procedures Procedure Date / Time Performed Performing Clinician Source EXTRACTION POC LOW OPEN 2021-05-26 00:00:00 [facility] US, obstetric, maternal evaluation + anatomy 2021-04-19 00:00:00 [facility] US, obstetric, maternal evaluation + anatomy, single gestation 2021-01-12 00:00:00 [facility] US, obstetric, transvaginal 2020-10-25 00:00:00 [facility] US, obstetric, transvaginal 2020-10-10 00:00:00 [facility] US, transvaginal 2020-05-09 00:00:00 [facility] EXTRACTION POC LOW OPEN 2018-08-19 00:00:00 [facility] Breast Surgery [facility] Caesarean Section [facility] Dilation and Curettage [facility] Delivery [facility] Plan of Care Planned Activity Planned Date Details Comments Source Diagnostic Test Pending 2022-06-01 00:00:00 rapid strep group A, throat [code = rapid strep group A, throat] [facility] Encounters Start Date/Time End Date/Time Encounter Type Admission Type Attending Clinicians Care Facility Care Department Encounter ID Source 2022-08-01 16:32:06 Inpatient [facility] [id number] [facility] 2024-04-23 08:35:00 2024-04-23 10:58:00 Emergency ER VANDANA VARGAS [facility] [id number] [facility] 2024-03-12 00:00:00 2024-03-12 00:00:00 Mayelin Maldonado, TUBE BUILDER: [address], [place] [address] , Ph. 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 OPERATOR [id number] [facility] 2024-01-07 10:00:00 2024-01-07 10:57:53 Office Visit Yevgeniy Aguilar [facility] [id number] [facility] [id number] [facility] 2023-12-26 16:59:00 2023-12-27 20:22:00 Inpatient E YEVGENIY AGUILAR [facility] [id number] [address] [place] [address] 2023-12-26 08:32:00 2023-12-26 23:59:00 Outpatient GRACY CHOWDARY [facility] [id number] [facility] 2023-12-26 17:30:00 2023-12-26 17:30:00 Outpatient YEVGENIY AGUILAR [facility] [id number] [facility] 2023-12-06 18:03:00 2023-12-06 21:25:00 Emergency ER ROBERT LORENZO [facility] [id number] [facility] 2023-12-06 18:03:00 2023-12-06 21:25:00 emergency [facility] [id number] 2023-07-08 00:00:00 2023-07-08 00:00:00 Outpatient PATEL_NILES H [facility] [id number] [facility] 2023-06-28 00:49:00 2023-06-28 04:00:00 Emergency ER ESAU RIVERA [facility] [id number] [facility] 2023-06-25 00:00:00 2023-06-25 00:00:00 Joby Bates MD: [address] [place] [address] , Ph. [phone] [facility] [id number] [facility] 2023-06-24 00:00:00 2023-06-24 00:00:00 Outpatient PATEL_NILES H [facility] [id number] [facility] 2023-06-24 00:00:00 2023-06-24 00:00:00 Outpatient PATEL_NILES H [facility] [id number] [facility] 2023-06-08 16:30:00 2023-06-08 17:40:00 Emergency ER KAILYN GALVAN [facility] [id number] [facility] 2023-04-09 00:00:00 2023-04-09 00:00:00 Outpatient PATEL_NILES H [facility] [id number] [facility] 2023-04-09 00:00:00 2023-04-09 00:00:00 Outpatient PATEL_NILES H [facility] [id number] [facility] 2023-04-09 00:00:00 2023-04-09 00:00:00 Joby Bates MD: [address] [address] , Ph. [phone] [facility] [id number] [facility] 2023-04-03 00:00:00 2023-04-03 00:00:00 Outpatient PATEL_NILES H [facility] [id number] [facility] 2023-02-01 00:00:00 2023-02-01 00:00:00 Outpatient Ayeni_Ibito ye_Olubu [facility] [id number] [facility] 2023-01-15 00:00:00 2023-01-15 00:00:00 Joby Bates MD: [address] [address] , Ph. [phone] [facility] [id number] [facility] 2023-01-11 00:00:00 2023-01-11 00:00:00 Outpatient Ayeni_Ibito ye_Olubu [facility] [id number] [facility] 2023-01-11 00:00:00 2023-01-11 00:00:00 Outpatient Ayeni_Ibito ye_Olubu [facility] [id number] [facility] 2023-01-11 00:00:00 2023-01-11 00:00:00 Outpatient Ayeni_Ibito ye_Olubu [facility] [id number] [facility] 2022-10-18 00:00:00 2022-10-18 00:00:00 Outpatient Ayeni_Ibito ye_Olubu [facility] [id number] [facility] 2022-10-18 00:00:00 2022-10-18 00:00:00 Joby Bates MD: [place] [address] , Ph. [phone] [facility] [place] [facility] [id number] [facility] 2022-10-17 00:00:00 2022-10-17 00:00:00 Outpatient Ayeni_Ibito ye_Olubu [facility] [id number] [facility] 2022-10-02 09:39:00 2022-10-02 12:02:00 Emergency ER ADELINE APODACA [facility] [id number] [facility] 2022-09-24 15:46:00 2022-09-24 16:54:00 Emergency ER KRYSTYNA BROWN [facility] [id number] [facility] 2022-09-13 00:00:00 2022-09-13 00:00:00 Outpatient Ayeni_Ibito ye_Olubu [facility] [id number] [facility] 2022-09-13 00:00:00 2022-09-13 00:00:00 Joby Baets MD: Sydnee Sanchez [place] [address] , Ph. [phone] [facility] [place] [facility] [id number] [facility] 2022-08-14 00:00:00 2022-08-14 00:00:00 Outpatient Ayeni_Ibito ye_Olubu [facility] [id number] [facility] 2022-08-14 00:00:00 2022-08-14 00:00:00 Joby Bates MD: [address] [address] , Ph. [phone] [facility] [id number] [facility] 2022-08-12 00:00:00 2022-08-12 00:00:00 Outpatient Ayeni_Ibito ye_Olubu [facility] [id number] [facility] 2022-07-17 00:00:00 2022-07-17 00:00:00 Outpatient Ayeni_Ibito ye_Olubu [facility] [id number] [facility] 2022-07-17 00:00:00 2022-07-17 00:00:00 Joby Bates MD: [address] [place] [address] , Ph. [phone] [facility] [id number] [facility] 2022-07-15 00:00:00 2022-07-15 00:00:00 Outpatient Ayeni_Ibito ye_Olubu [facility] [id number] [facility] 2022-06-26 13:45:00 2022-06-26 17:00:00 Emergency ER VANDANA VARGAS [facility] [id number] [facility] 2022-06-01 00:00:2022-06-01 00:00:00 [facility] [id number] [facility] 2022-06-01 00:00:00 2022-06-01 00:00:00 Shelby Falcon, PARQUET FLOOR LAYER-C: [address], [place] [address] , Ph. [facility] - [facility] [id number] [facility] 2022-04-08 20:26:00 2022-04-08 22:11:00 Emergency ER YUSUF ROBERTS [facility] [id number] [facility] 2022-01-26 11:12:00 2022-01-26 11:12:00 Outpatient Ayeni_Ibito ye_Olubu [facility] [id number] [facility] 2021-12-09 00:01:00 2021-12-09 02:58:00 Emergency ER KAILYN GALVAN [facility] [id number] [facility] 2021-08-21 12:08:00 2021-08-21 12:08:00 Outpatient Ayeni_Ibito ye_Olubu [facility] [id number] [facility] 2021-08-02 04:21:00 2021-08-02 04:21:00 Outpatient NERET [facility] [id number] [facility] 2021-07-04 12:42:00 2021-07-04 12:42:00 Outpatient Ayeni_Ibito ye_Olubu [facility] [id number] [facility] 2021-07-04 00:00:00 2021-07-04 00:00:00 Kaitlyn Linares MD: [address], [address], [place] [address] , Ph. [facility] [place] [facility] [id number] [facility] 2021-06-14 04:03:00 2021-06-14 04:03:00 Outpatient Ayeni_Ibito ye_Olubu [facility] [id number] [facility] 2021-06-08 10:34:00 2021-06-08 10:34:00 Outpatient Ayeni_Ibito ye_Olubu [facility] [id number] [facility] 2021-06-08 00:00:00 2021-06-08 00:00:00 Kaitlyn Linares MD: [address] [place] [address] , Ph. [facility] [place] 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 OPERATOR [id number] [facility] 2021-06-05 05:47:00 2021-06-05 05:47:00 Outpatient Ayeni_Ibito ye_Olubu [facility] [id number] [facility] 2021-05-26 05:16:00 2021-05-28 12:01:00 Inpatient C VESTA-IBITO [facility]AR[facility]KOL[facility] [id number] [facility] 2021-05-25 03:30:00 2021-05-25 03:30:00 Outpatient Ayeni_Ibito ye_Olubu [facility] [id number] [facility] 2021-05-24 11:58:00 2021-05-24 11:58:00 Outpatient Ayeni_Ibito ye_Olubu [facility] [id number] [facility] 2021-05-24 00:00:00 2021-05-24 00:00:00 Kaitlyn Linares MD: [address] [place] [address] , Ph. [facility] [id number] [facility] 2021-05-16 12:18:00 2021-05-16 12:18:00 Outpatient Ayeni_Ibito ye_Olubu [facility] [id number] [facility] 2021-05-16 00:00:00 2021-05-16 00:00:00 Kaitlyn Linares MD: [address] [place] [address] , Ph. [facility] [id number] [facility] 2021-05-10 05:47:00 2021-05-10 05:47:00 Outpatient Ayeni_Ibito ye_Olubu [facility] [id number] [facility] 2021-05-09 12:57:00 2021-05-09 12:57:00 Outpatient Ayeni_Ibito ye_Olubu [facility] [id number] [facility] 2021-05-09 00:00:00 2021-05-09 00:00:00 Kaitlyn Linares MD: [address] [place] [address] , Ph. [facility] [id number] [facility] 2021-05-03 22:43:00 2021-05-04 01:05:00 Emergency ER BASSAM PALACIOS [facility] [id number] [facility] 2021-05-03 12:19:00 2021-05-03 12:19:00 Outpatient Ayeni_Ibito ye_Olubu [facility] [id number] [facility] 2021-05-03 00:00:00 2021-05-03 00:00:00 Kaitlyn Linares MD: [address], [facility] [place] [address] , Ph. [facility] [id number] [facility] 2021-04-21 15:09:00 2021-04-21 15:09:00 Outpatient EL VESTAKAITLYN [facility] [id number] [facility] 2021-04-19 03:01:00 2021-04-19 03:01:00 Outpatient Ayeni_Ibito ye_Olubu [facility] [id number] [facility] 2021-04-19 00:00:00 2021-04-19 00:00:00 Kaitlyn Linares MD: [address], [facility] [place] [place] [address] , Ph. [facility] [id number] [facility] 2021-03-30 05:13:00 2021-03-30 05:13:00 Outpatient Ayeni_Ibito ye_Olubu [facility] [id number] [facility] 2021-03-29 11:58:00 2021-03-29 11:58:00 Outpatient Ayeni_Ibito ye_Olubu [facility] [id number] [facility] 2021-03-29 00:00:00 2021-03-29 00:00:00 Kaitlyn Linares MD: [address], [place] [address] , Ph. [facility] [id number] [facility] 2021-03-11 17:40:00 2021-03-11 19:35:00 Emergency ER MUSHTAQ SHAH [facility] [id number] [facility] 2021-03-08 04:07:00 2021-03-08 04:07:00 Outpatient Ayeni_Ibito ye_Olubu [facility] [id number] [facility] 2021-03-08 00:00:00 2021-03-08 00:00:00 Kaitlyn Linares MD: [address] [place] [address] , Ph. [facility] [id number] [facility] 2021-02-09 11:54:00 2021-02-09 11:54:00 Outpatient Ayeni_Ibito ye_Olubu [facility] [id number] [facility] 2021-02-08 11:23:00 2021-02-08 11:23:00 Outpatient Ayeni_Ibito ye_Olubu [facility] [id number] [facility] 2021-02-08 00:00:00 2021-02-08 00:00:00 Kaitlyn Linares MD: [address], [place] [address] , Ph. [facility] [id number] [facility] 2021-02-07 05:12:00 2021-02-07 05:12:00 Outpatient Ayeni_Ibito ye_Olubu [facility] [id number] [facility] 2021-01-17 12:31:00 2021-01-17 12:31:00 Outpatient BAYLEE OCONNORMALINA KAITLYN [facility] [id number] [facility] 2021-01-12 04:51:00 2021-01-12 04:51:00 Outpatient LISTER_MELI SSA [facility] [id number] [facility] 2021-01-12 00:00:00 2021-01-12 00:00:00 Kaitlyn Linares MD: [address], [facility] [place] [place] [address] , Ph. [facility] [id number] [facility] 2020-12-15 05:45:00 2020-12-15 05:45:00 Outpatient LISTER_MELI SSA [facility] [id number] [facility] 2020-12-15 00:00:00 2020-12-15 00:00:00 Kaitlyn Linares MD: [address], [facility] [place] [place] [address] , Ph. [facility] [id number] [facility] 2020-11-11 09:42:00 2020-11-11 09:42:00 Outpatient LISTER_MELI SSA [facility] [id number] [facility] 2020-11-10 10:01:00 2020-11-10 10:01:00 Outpatient LISTER_MELI SSA [facility] [id number] [facility] 2020-11-10 00:00:00 2020-11-10 00:00:00 Kaitlyn Linares MD: [address], [address], [place] [address] , Ph. [facility] [id number] [facility] 2020-10-10 05:17:00 2020-10-10 05:17:00 Outpatient LISTER_MELI SSA [facility] [id number] [facility] 2020-10-10 00:00:00 2020-10-10 00:00:00 Kaitlyn Linares MD: [address], [address], [place] [address] , Ph. [facility] [id number] [facility] 2020-10-09 11:40:00 2020-10-09 11:40:00 Outpatient LISTER_MELI SSA [facility] [id number] [facility] 2020-10-06 12:49:00 2020-10-06 12:49:00 Outpatient LISTER_MELI SSA [facility] [id number] [facility] 2020-05-14 08:12:00 2020-05-14 08:12:00 Outpatient LISTER_MELI SSA [facility] [id number] [facility] 2020-05-09 05:52:00 2020-05-09 05:52:00 Outpatient LISTER_MELI SSA [facility] [id number] [facility] 2020-05-09 00:00:00 2020-05-09 00:00:00 Mayelin Maldonado, TUBE BUILDER: [address], [place] [address] , Ph. [facility] GYN [id number] [facility] 2019-10-07 00:00:00 2019-10-07 00:00:00 Mayelin Maldonado, TUBE BUILDER: [address] [place] [address] , Ph. 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 [place] 2019-09-13 12:22:00 2019-09-13 14:57:00 Emergency ER JIM JOY [facility] [id number] [facility] 2019-07-29 11:55:00 2019-07-29 13:13:00 Emergency ER INEZRAFITACourtney [facility] [id number] [facility] 2018-08-18 18:45:00 2018-08-21 13:10:00 Inpatient U DICLECHARBEL JOSSE [facility] OB [id number] [facility] 2018-07-16 15:44:00 2018-07-16 15:44:00 Outpatient EL DICLECHARBEL JOSSE [facility] [id number] [facility] 2018-07-02 16:17:00 2018-07-02 16:17:00 Outpatient EL DICLECHARBEL JOSSE [facility] [id number] [facility] 2018-06-29 18:22:00 2018-06-29 19:25:00 Emergency ER MUSHTAQ KING [facility] [id number] [facility] 2018-06-11 13:25:00 2018-06-11 13:25:00 Outpatient EL DICLECHARBEL JOSSE [facility] [id number] [facility] 2017-02-27 14:48:00 2017-02-27 17:09:00 Emergency TR MARIELY ERICKSON [facility] [id number] [facility] 2016-02-16 13:07:00 2016-02-16 17:00:00 Emergency ER ELISHA BARRETO [facility] [id number] [facility] 2015-02-21 16:26:00 2015-02-21 16:26:00 Outpatient MUSHTAQ MARTINEZ [facility] [id number] [facility] 2015-02-14 09:28:00 2015-02-14 09:28:00 Outpatient CUCO VERA [facility] [id number] [facility] 2015-01-21 08:21:00 2015-01-21 09:21:00 Emergency ER DEQUAN OBIDIKE [facility] [id number] [facility] 2014-07-25 12:45:00 2014-07-25 15:03:00 Emergency ER ZULY BLAIR [facility] [id number] [facility] 2002-10-01 19:14:00 2002-10-01 21:50:00 Emergency ER LEX KUMAR [facility] [id number] [facility] Results Test Description Test Time Test Comments Results Result Co mments Source [facility] (INCLUDES AUTOMATED DIFFERENTIAL)*[id number] 13:13:00* Test Item Value Reference Range Interpretation Comme nts WBC (test code = WBC) 9.7 10\S\3/uL [...] RBC MORPH (test code = WRBCMOR) NORMAL HIV *WW*2021-05-26 12:20:00* Test Item Value Reference Range Interpretation Comme nts HIV-1,2 and p24 (test code = CHIV) NON-REACTIVE NON-REACTIVE SYPHILIS SCREENING WW2021-05-26 11:55:00* Test Item Value Reference Range Interpretation Comme nts T PALLIDUM AB (test code = SYPHINT) NON-REACTIVE NON-REACTIVE SYPHC (test code = SYPHC) RPR test has been updated to Treponemal Immunoassay. Interpretation of results is similar HEPATITIS B SURFACE ANTIGEN *WW*2021-05-26 11:53:00* Test Item Value Reference Range Interpretation Comme nts HBSAG (test code = HBSAG) NON-REACTIVE NON-REACTIVE FIBRINOGEN QUANTITATIVE 2021-05-26 07:36:00* Test Item Value Reference Range Interpretation Comme nts FIBRINOGEN (test code = FIB) 486 mg/dL 260-480 H URINALYSIS WITH MICRO *WW*2021-05-26 07:31:00* Test Item Value Reference Range Interpretation Comme nts COLOR (test code = COLU) YELLOW YELLOW [...] = USPERM) /HPF NONE SARS-CoV (RAPID ANTIGEN) 2021-05-26 07:25:00* Test Item Value Reference Range Interpretation Comme nts SARS-CoV (ANTIGEN) (test code = COVAG) NEGATIVE NEGATIVE COVID AG (test code = COVAGC) This test has been marketed under the FDA Emergency Use Authorization (EUA) to meet challenges of the COVID-19 pandemic. The validation standards normally enforced by the FDA and the [employer] the [place] [employer] (CAP) are more stringent than those required for this test. Therefore, the result should be interpreted with caution and close attention to other clinical and epidemiological data CBC (INCLUDES AUTOMATED DIFFERENTIAL)*[id number] 07:21:00* Test Item Value Reference Range Interpretation Comme nts WBC (test code = WBC) 8.5 10\S\3/uL [...] RBC MORPH (test code = WRBCMOR) NORMAL Urinalysis macro (dipstick) panel - [id number] 11:16:00* Test Item Value Reference Range Interpretation Comme nts Leukocytes (test code = Leukocytes) NEG Nitrite (test code = Nitrite) NEG Urobilinogen (test code = Urobilinogen) 0.2 Protein (test code = Protein) NEG pH (test code = pH) 6.0 Blood (test code = Blood) NEG Specific Elwell (test code = Specific Elwell) 1.010 Ketone (test code = Ketone) NEG Bilirubin (test code = Bilirubin) NEG Glucose (test code = Glucose) NEG Appearance (test code = Appearance) CLEAR Color (test code = Color) DARK YELLOW [facility] (dipstick) panel - [id number] 09:07:00* Test Item Value Reference Range Interpretation Comme nts Leukocytes (test code = Leukocytes) 3+ Nitrite (test code = Nitrite) neg Urobilinogen (test code = Urobilinogen) 0.2 Protein (test code = Protein) neg pH (test code = pH) 6.5 Blood (test code = Blood) neg Specific Elwell (test code = Specific [place]well) 1.020 Ketone (test code = Ketone) neg Bilirubin (test code = Bilirubin) neg Glucose (test code = Glucose) neg Appearance (test code = Appearance) clear Color (test code = Color) yellow [facility] macro (dipstick) panel - [id number] 10:40:00* Test Item Value Reference Range Interpretation Comme nts Leukocytes (test code = Leukocytes) 3+ Nitrite (test code = Nitrite) neg Urobilinogen (test code = Urobilinogen) 0.2 Protein (test code = Protein) neg pH (test code = pH) 8.0 Blood (test code = Blood) neg Specific Elwell (test code = Specific [place]well) 1.015 Ketone (test code = Ketone) 5 Bilirubin (test code = Bilirubin) 1+ Glucose (test code = Glucose) neg Appearance (test code = Appearance) cear Color (test code = Color) dark yellow [facility]actiae [Presence] in Unspecified specimen by Organism specific [id number] 00:00:00* Test Item Value Reference Range Interpretation Comme [facility] culture, strep B - (test code = culture, strep B - ) specimen number: [id number] [facility] CenterB[facility] vaginosis and vaginitis DNA panel - Vaginal fluid by Probe with signal [id number] 00:00:00* Test Item Value Reference Range Interpretation Comme nts bv result (test code = bv result) positive A lactobacillus spp. (test cod e = lactobacillus spp.) normal gardnerella vaginalis (test code = gardnerella vaginalis) detected atopobium vaginae (test code = atopobium vaginae) detected bvab2 (test code = bvab2) detected megasphera spp. (test code = megasphera spp.) detected mobiluncus curtisii (test co de = mobiluncus curtisii) not detected mobiluncus mulieris (test co de = mobiluncus mulieris) not detected prevotella bivia (test code = prevotella bivia) detected lactobacillus iners (test co de = lactobacillus iners) detected specimen (test code = specimen) see note cale albicans (test code = cale albicans) detected A cale glabrata (test code = cale glabrata) not detected cale parapsilosis (test c ode = cale parapsilosis) not detected cale tropicalis (test cod e = cale tropicalis) not detected cale krusei (test code = cale krusei) not detected trichomonas, simpleswab (colin t code = trichomonas, simpleswab) negative [facility] CenterChlamydia trachomatis DNA [Presence] in Unspecified specimen by JAVIER with probe [id number] 00:00:00* Test Item Value Reference Range Interpretation Comme nts chlamydia, tma (test code = chlamydia, tma) negative negative [facility] CenterNeisseria gonorrhoeae DNA [Presence] in Unspecified specimen by JAVIER with probe [id number] 00:00:00* Test Item Value Reference Range Interpretation Comme nts gonorrhea, tma (test code = gonorrhea, tma) negative negative [facility] CenterUr[facility]ysis macro (dipstick) panel - [id number] 09:59:00* Test Item Value Reference Range Interpretation Comme nts Leukocytes (test code = Leukocytes) 3+ Nitrite (test code = Nitrite) NEG Urobilinogen (test code = Urobilinogen) 1+ Protein (test code = Protein) TRACE pH (test code = pH) 6.0 Blood (test code = Blood) NEG Specific Elwell (test code = Specific Elwell) 1.020 Ketone (test code = Ketone) NEG Bilirubin (test code = Bilirubin) 1+ Glucose (test code = Glucose) NEG Appearance (test code = Appearance) CLEAR Color (test code = Color) DARK YELLOW [facility] CenterCBC W Auto Differential panel - Blood 2021-04-20 00:00:00* Test Item Value Reference Range Interpretation Comme nts Leukocytes [#/volume] in Blo od by Automated count (test code = 6690-2) 7.8 x10e3/uL 3.4-10.8 Erythrocytes [#/volume] in Blood by Automated count (test code = 789-8) 3.50 x10e6/uL 3.77-5.28 L Hemoglobin [Mass/volume] in Blood (test code = 718-7) 10.8 g/dL 11.1-15.9 L Hematocrit [Volume Fraction] of Blood by Automated count (test code = 4544-3) 32.1 % 34.0-46.6 L MCV [Entitic volume] by Automated count (test code = 787-2) 92 fL 79-97 MCH [Entitic mass] by Automa cari count (test code = 785-6) 30.9 pg 26.6-33.0 MCHC [Mass/volume] by Automa cari count (test code = 786-4) 33.6 g/dL 31.5-35.7 Erythrocyte distribution wid th [Ratio] by Automated count (test code = 788-0) 12.5 % 11.7-15.4 Platelets [#/volume] in Bloo d by Automated count (test code = 777-3) 233 x10e3/uL 150-450 Neutrophils/100 leukocytes i n Blood by Automated count (test code = 770-8) 73 % not estab. Lymphocytes/100 leukocytes i n Blood by Automated count (test code = 736-9) 17 % not estab. Monocytes/100 leukocytes in Blood by Automated count (test code = 5905-5) 9 % not estab. Eosinophils/100 leukocytes i n Blood by Automated count (test code = 713-8) 1 % not estab. Basophils/100 leukocytes in Blood by Automated count (test code = 706-2) 0 % not estab. 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 Immature granulocytes [#/volume] in Blood by Automated count (test code = 96257-1) 0.0 x10e3/uL 0.0-0.1 Nucleated erythrocytes/100 leukocytes [Ratio] in Blood by Automated count (test code = 52928-2) screenplay writer Morphology [Interpretation] in Blood Narrative (test code = 47865-3) screenplay writer [facility] CenterReagin Ab [Presence] in Serum by RPR 2021-04-20 00:00:00* Test Item Value Reference Range Interpretation Comme nts Reagin Ab [Presence] in Seru m by RPR (test code = 90620-5) non reactive non reactive [facility] CenterHepatitis B virus surface Ag [Presence] in Serum or Plasma by [id number] 00:00:00* Test Item Value Reference Range Interpretation Comme nts Hepatitis B virus surface Ag [Presence] in Serum or Plasma by Immunoassay (test code = 5196-1) negative negative [facility] CenterHIV 1+2 Ab+HIV1 p24 Ag [Presence] in Serum or Plasma by [id number] 00:00:00* Test Item Value Reference Range Interpretation Comme nts HIV 1+2 Ab+HIV1 p24 Ag [Presence] in Serum or Plasma by Immunoassay (test code = 94100-1) non reactive non reactive [facility] CenterUrinalysis macro (dipstick) panel - [id number] 10:41:00* Test Item Value Reference Range Interpretation Comme nts Leukocytes (test code = Leukocytes) NG Nitrite (test code = Nitrite) NEG Urobilinogen (test code = Urobilinogen) 0.2 Protein (test code = Protein) NEG pH (test code = pH) 6.5 NEG Blood (test code = Blood) NEG Specific Elwell (test code = Specific Elwell) 1.015 Ketone (test code = Ketone) NEG Bilirubin (test code = Bilirubin) NEG Glucose (test code = Glucose) NEG Appearance (test code = Appearance) CLEAR YELLOW [facility]] in Serum or Plasma --1 hour post 50 g glucose [id number] 00:00:00* Test Item Value Reference Range Interpretation Comme nts Glucose [Mass/volume] in Ser um or Plasma --1 hour post 50 g glucose PO (test code = 1504-0) 87 mg/dL 65-139 [facility] macro (dipstick) panel - [id number] 09:44:00* Test Item Value Reference Range Interpretation Comme nts Leukocytes (test code = Leukocytes) 2+ Nitrite (test code = Nitrite) neg Urobilinogen (test code = Urobilinogen) 0.2 Protein (test code = Protein) neg pH (test code = pH) 6.5 Blood (test code = Blood) neg Specific Elwell (test code = Specific Elwell) 1.020 Ketone (test code = Ketone) neg Bilirubin (test code = Bilirubin) neg Glucose (test code = Glucose) neg Appearance (test code = Appearance) turbine Color (test code = Color) dark color [facility] CenterBacteria identified in Urine by [id number] 00:00:00* Test Item Value Reference Range Interpretation Comme nts culture, urine/sensitivity on all (test code = culture, urine/sensitivity on all) specimen number: [id number] [facility] macro (dipstick) panel - [id number] 09:03:00* Test Item Value Reference Range Interpretation Comme nts Leukocytes (test code = Leukocytes) 3+ Nitrite (test code = Nitrite) NEG Urobilinogen (test code = Urobilinogen) 0.2 Protein (test code = Protein) 1+ pH (test code = pH) 7.5 Blood (test code = Blood) NEG Specific Elwell (test code = Specific Elwell) 1.015 Ketone (test code = Ketone) NEG Bilirubin (test code = Bilirubin) NEG Glucose (test code = Glucose) NEG [facility] CenterB[facility] identified in Urine by [id number] 00:00:00* Test Item Value Reference Range Interpretation Comme nts culture, urine/sensitivity on all (test code = culture, urine/sensitivity on all) specimen number: [id number] [facility] (dipstick) panel - [id number] 09:22:16* Test Item Value Reference Range Interpretation Comme nts Leukocytes (test code = Leukocytes) trace Nitrite (test code = Nitrite) neg Urobilinogen (test code = Urobilinogen) 0.2 Protein (test code = Protein) neg pH (test code = pH) 7.0 Blood (test code = Blood) neg Specific Elwell (test code = Specific Elwell) 1.015 Ketone (test code = Ketone) neg Bilirubin (test code = Bilirubin) neg Glucose (test code = Glucose) neg Appearance (test code = Appearance) turbid Color (test code = Color) dark yellow [facility] CenterAlpha-1-Fetoprotein panel - Serum or [id number] 00:00:00* Test Item Value Reference Range Interpretation Comme nts results (test code = results) report [id number]-7-Lvcxxtewdxg interpretation in Serum or Plasma (test code = 57409-4) *screen negative* Gestational age (test code = 02666-5) 15.9 weeks Gestational age method (test code = 54053-6) LMP Age at delivery (test code = 56410-0) 22.4 yr Mother's race (test code = 54852-6) Body weight (test code = 65514-4) 142 [lb av] Insulin dependent diabetes mellitus [Presence] (test code = 14771-5) no Multiple (test code = 63307-2) no Kbkpj-3-Idnmbkkyids [Mass/volume] in Serum or Plasma (test code = 1834-1) 35.8 NG/mL Iegil-9-Fextriduzmf [Multiple of the median] adjusted in Serum or Plasma (test code = 94107-7) 1.05 Neural tube defect risk [Likelihood] in Fetus (test code = 26259-5) 13088 Gizrq-9-Lvegezujttk interpretation in Serum or Plasma Narrative (test code = 60641-8) comment comment: (test code = comment:) comment Laboratory report (test code = 89832-2) . [facility] CenterBacteria identified in Urine by [id number] 00:00:00* Test Item Value Reference Range Interpretation Comme nts Bacteria identified in Urine by Culture (test code = 630-4) no growth [facility] macro (dipstick) panel - [id number] 09:18:00* Test Item Value Reference Range Interpretation Comme nts Leukocytes (test code = Leukocytes) 3+ Nitrite (test code = Nitrite) NEG Urobilinogen (test code = Urobilinogen) 0.2 Protein (test code = Protein) NEG pH (test code = pH) 6.0 Blood (test code = Blood) NEG Specific Elwell (test code = Specific Elwell) 1.030 Ketone (test code = Ketone) NEG Bilirubin (test code = Bilirubin) NEG Glucose (test code = Glucose) NEG Appearance (test code = Appearance) TURBID Color (test code = Color) DARK YELLOW [facility] CenterUrinalysis macro (dipstick) panel - [id number] 13:23:00* Test Item Value Reference Range Interpretation Comme nts Leukocytes (test code = Leukocytes) NEG Nitrite (test code = Nitrite) NEG Urobilinogen (test code = Urobilinogen) 0.2 Protein (test code = Protein) NEG pH (test code = pH) 6.0 Blood (test code = Blood) NEG Specific Elwell (test code = Specific Elwell) 1.025 Ketone (test code = Ketone) NEG Bilirubin (test code = Bilirubin) NEG Glucose (test code = Glucose) NEG Appearance (test code = Appearance) TURBID Color (test code = Color) DARK YELLOW [facility] CenterUrinalysis macro (dipstick) panel - [id number] 09:09:00* Test Item Value Reference Range Interpretation Comme nts Leukocytes (test code = Leukocytes) NEG Nitrite (test code = Nitrite) NEG Urobilinogen (test code = Urobilinogen) 0.2 Protein (test code = Protein) NEG pH (test code = pH) 6.0 Blood (test code = Blood) NEG Specific Elwell (test code = Specific Elwell) 1.020 Ketone (test code = Ketone) NEG Bilirubin (test code = Bilirubin) NEG Glucose (test code = Glucose) NEG Appearance (test code = Appearance) CLEAR Color (test code = Color) LIGHT YELLOW [facility] CenterBacteria identified in Urine by [id number] 00:00:00* Test Item Value Reference Range Interpretation Comme nts culture, urine/sensitivity on all (test code = culture, urine/sensitivity on all) specimen number: [id number] [facility] CenterBlood group antibody screen [Presence] in Serum or [id number] 00:00:00* Test Item Value Reference Range Interpretation Comme nts antibody screen (test code = antibody screen) negative negative [facility] CenterCBC W Auto Differential panel - Blood 2020-10-11 00:00:00* Test Item Value Reference Range Interpretation Comme nts WBC (test code = WBC) 6.9 K/uL [...] 12.2 % 11.5-15.0 neutrophils (test code = neutrophils) 72.8 % 40.0-75.0 lymphocytes (test code = lymphocytes) 16.9 % 20.0-45.0 L monocytes (test code = monocytes) 8.2 % 4.0-12.0 eosinophils (test code = eosinophils) 1.5 % 0.0-7.0 basophils (test code = basophils) 0.6 % 0.0-2.0 platelet count (test code = platelet count) 293 K/uL 130-400 [facility] ProgramMMR immunity, [id number] 00:00:00* Test Item Value Reference Range Interpretation Comme nts rubeola IgG antibody (test c ode = rubeola IgG antibody) 40.1 AU/mL see below mumps virus IgG (test code = mumps virus IgG) <5.0 see below L rubella antibody screen (colin t code = rubella antibody screen) 91 IU/mL see below rubella IgG interp (test cod e = rubella IgG interp) reactive reactive varicella zoster IgG (test c ode = varicella zoster IgG) 337 index see below [facility] ProgramReagin Ab [Presence] in Serum by RPR 2020-10-11 00:00:00* Test Item Value Reference Range Interpretation Comme nts RPR (test code = RPR) non-reactive non-reactive RPR titer (test code = RPR titer) not indic. not indic. [facility] ProgramABO & Rh group [Type] in Blood 2020-10-11 00:00:00* Test Item Value Reference Range Interpretation Comme nts blood type and Rh (test code = blood type and Rh) O positive [facility] ProgramHIV 1+2 Ab [Presence] in Serum or Plasma by [id number] 00:00:00* Test Item Value Reference Range Interpretation Comme nts HIV 1/2 4TH gen, rflx conf ( test code = HIV 1/2 4TH gen, rflx conf) non-reactive non-reactive [facility] ProgramSickle cells [Presence] in Blood by Light [id number] 00:00:00* Test Item Value Reference Range Interpretation Comme nts sickle cell rflx elect (test code = sickle cell rflx elect) negative negative [facility] ProgramHepatitis 1996 panel - Serum 2020-10-11 00:00:00* Test Item Value Reference Range Interpretation Comme nts hepatitis A total Ab (test c ode = hepatitis A total Ab) reactive non-reactive A hepatitis B surf Ag (test co de = hepatitis B surf Ag) non-reactive non-reactive hep B core total Ab (test co de = hep B core total Ab) non-reactive non-reactive hepatitis B surface Ab (test code = hepatitis B surface Ab) non-reactive non-reactive hepatitis C antibody (test c ode = hepatitis C antibody) non-reactive non-reactive interpretation hepatitis A: (test code = interpretation hepatitis A:) (note) interpretation hepatitis B: (test code = interpretation hepatitis B:) (note) interpretation hepatitis C: (test code = interpretation hepatitis C:) (note) [facility] ProgramHepatitis A virus IgM Ab [Presence] in [id number] 00:00:00* Test Item Value Reference Range Interpretation Comme nts hepatitis A IgM (test code = hepatitis A IgM) non-reactive non-reactive [facility] ProgramDrugs identified in Urine by Screen [id number] 00:00:00* Test Item Value Reference Range Interpretation Comme nts amphetamines (test code = amphetamines) negative negative barbiturates (test code = barbiturates) negative negative benzodiazepines (test code = benzodiazepines) negative negative cannabinoids (test code = cannabinoids) negative negative cocaine metabolite (test cod e = cocaine metabolite) negative negative opiates (test code = opiates) negative negative oxycodone (test code = oxycodone) negative negative phencyclidine (test code = phencyclidine) negative negative methadone (test code = methadone) negative negative buprenorphine (test code = buprenorphine) negative negative [facility] ProgramBacterial vaginosis and vaginitis DNA panel - Vaginal fluid by Probe with signal [id number] 00:00:00* Test Item Value Reference Range Interpretation Comme nts cael species (test code = cale species) positive negative A g. vaginalis (test code = g. vaginalis) positive negative A T. vaginalis (test code = T. vaginalis) negative negative [facility] ProgramChlamydia trachomatis+Neisseria gonorrhoeae DNA [Presence] in Urine by JAVIER with probe [id number] 00:00:00* Test Item Value Reference Range Interpretation Comme nts gonorrhea, naat (test code = gonorrhea, naat) negative negative chlamydia, naat (test code = chlamydia, naat) negative negative [facility] ProgramCBC (INCLUDES AUTOMATED DIFFERENTIAL)*[id number] 06:58:00* Test Item Value Reference Range Interpretation Comme [...] code = WRBCMOR) NORMAL SYPHILIS SCREENING WW2018-08-19 05:57:00* Test Item Value Reference Range Interpretation Comme nts T PALLIDUM AB (test code = SYPHINT) NON-REACTIVE NON-REACTIVE SYPHC (test code = SYPHC) RPR test has been updated to Treponemal Immunoassay. Interpretation of results is similar RUBELLA AB IGG WW2018-08-19 05:57:00* Test Item Value Reference Range Interpretation Comme nts RUB AB IGG INTERP (test code = RBABINT) IMMUNE NON-IMMUNE A HIV *WW*2018-08-19 05:31:00* Test Item Value Reference Range Interpretation Comme nts HIV-1,2 and p24 (test code = CHIV) NON-REACTIVE NON-REACTIVE HEPATITIS B SURFACE ANTIGEN *WW*2018-08-19 05:26:00* Test Item Value Reference Range Interpretation Comme nts HBSAG (test code = HBSAG) NON-REACTIVE NON-REACTIVE CBC (INCLUDES AUTOMATED DIFFERENTIAL)*[id number] 20:24:00* Test Item Value Reference Range Interpretation Comme nts WBC (test code = WBC) 11.1 10\S\3/uL [...]
--- NOTE | 2024-10-13 00:21 | EDPHYS ---
Physician Documentation [facility] Name: Danette Sosa Age: 23 yrs Sex: Female : 2000 Arrival Date: 10/13/2024 Time: 00:08 Bed 15 Private MD: ED Physician Maurizio Ruiz HPI: 10/13 00:15 This 23 yrs old Female presents to ER via Unassigned with complaints of Toothache, Jaw kb Pain. 00:15 Pt is a 23 year old female who presents for toothache to left lower jaw that started a kb week ago and swelling to left lower jaw that started a couple of days ago. Denies fever, nausea, vomiting. 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 - Infectious Disease History:: Denies. - Social history:: Smoking status: unknown. ROS: 00:15 Constitutional: As per HPI kb Exam: 00:17 Constitutional: This is a well developed, well nourished patient who is awake, alert, kb and in no acute distress. Head/Face: Normocephalic, atraumatic. Cardiovascular: Regular rate Respiratory: Respirations even and unlabored. No increased work of breathing. Talking in full sentences Skin: Warm, dry with normal turgor. Normal color. MS/ Extremity: Pulses equal, no cyanosis. Neurovascular intact. Full, normal range of motion. Neuro: Awake and alert, GCS 15, oriented to person, place, time, and situation. 00:17 ENT: Dental exam: gum swelling, that is mild, pain, that is moderate, Vital Signs: 00:34 BP 112 / 70; Pulse 83; Resp 18; Temp 98; Pulse Ox 100% on R/A; Weight 63.5 kg; Height 5 kj2 ft. 7 in. ; Pain 8/10; 00:34 Body Mass Index 21.93 (63.50 kg, 170.18 cm) kj2 00:34 Pain Scale: Adult kj2 MDM: 00:14 Medical Screening Exam initiated kb 00:18 Data reviewed: vital signs, nurses notes. kb 00:19 Differential diagnosis: dental caries, gingivitis, dental abscess, pericoronitis. kb Counseling: I had a detailed discussion with the patient and/or guardian regarding the historical points, exam findings, and any diagnostic results supporting the discharge/admit diagnosis, the need for outpatient follow up, a dentist, to return to the emergency department if symptoms worsen or persist or if there are any questions or concerns that arise at home. Administered Medications: 00:49 Drug: Ketorolac IM 30 mg IM once Route: IM; Site: right deltoid; kj2 00:50 Follow up: Response: Medication administered at discharge. kj2 00:49 Drug: Amoxicillin-Clavulanate PO 875 mg PO once Route: PO; kj2 00:50 Follow up: Response: Medication administered at discharge. kj2 Disposition: 01:29 Co-signature as Attending Physician, Maurizio Ruiz MD I agree with the assessment sp4 and plan of care. I reviewed the patient's care provided by the Advanced Practice Provider and agree with the diagnosis and treatment plan. Disposition Summary: 10/13/24 00:20 Discharge Ordered Notes: Location: Home kb Condition: Stable kb Diagnosis - Periapical abscess without sinus kb Followup: kb - With: Emergency Department - When: As needed - Reason: Worsening of condition Followup: kb - With: Private Physician - When: 2 - 3 days - Reason: Recheck today's complaints, Continuance of care, Re-evaluation by your physician Discharge Instructions: - Discharge Summary Sheet kb - Dental Pain, Bmru-br-Lycs kb - Dental Abscess, Evqj-pm-Pbru kb Forms: - Medication Reconciliation Form kb - Antibiotic Education kb - Prescription Opioid Use kb - Patient Portal Instructions kb - Leadership Thank You Letter kb Prescriptions: - Augmentin 875-125 mg Oral Tablet - take 1 tablet ORAL route every 12 hours for 10 days; 20 tablet; Refills: 0, kb Product Selection Permitted - Diclofenac Sodium 75 mg Oral tablet, delayed release (enteric coated) - take 1 tablet ORAL route 2 times per day As needed; 30 tablet; Refills: 0, kb Product Selection Permitted Signatures: Tiera Driscoll, Maurizio Montejo MD MD sp4 Linette Erazo RN RN kj2
[2024-10-13] MEDS ORDERED: AMOX/K CLAV 875 MG TAB ONE (00:40)
[2024-10-13] MEDS ORDERED: KETOROLAC 30 MG/ML INJ ONE (00:40)
--- NOTE | 2024-10-13 00:55 | ER ---
Nurse's Notes [facility] Name: Danette Ssoa Age: 23 yrs Sex: Female : 2000 Arrival Date: 10/13/2024 Time: 00:08 Bed 15 Private MD: Diagnosis: Periapical abscess without sinus Presentation: 10/13 00:34 Chief complaint: Patient states: toothache, jaw is swollen. Coronavirus screen: At this kj2 time, the client does not indicate any symptoms associated with coronavirus-19. Ebola Screen: No symptoms or risks identified at this time. Initial Sepsis Screen: Does the patient meet any 2 criteria? No. Patient's initial sepsis screen is negative. Does the patient have a suspected source of infection? No. Patient's initial sepsis screen is negative. Risk Assessment: Do you want to hurt yourself or someone else? Patient reports no desire to harm self or others. Onset of symptoms was October 13, 2024. 00:34 Method Of Arrival: Ambulatory kj2 00:34 Acuity: DANNY 3 kj2 Triage Assessment: 00:35 General: Appears in no apparent distress. uncomfortable, Behavior is calm, cooperative. kj2 Pain: Complains of pain in left side of jaw. EENT: Reports pain in left side of jaw. 00:37 Neuro: Oriented to person, place, time, situation. Cardiovascular: Patient's skin is kj2 warm and dry. Respiratory: Airway is patent Respiratory effort is even, unlabored. GI: No signs and/or symptoms were reported involving the gastrointestinal system. : No signs and/or symptoms were reported regarding the genitourinary system. 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 - Infectious Disease History:: Denies. - Social history:: Smoking status: unknown. Screenin:15 [facility] ED Fall Risk Assessment (Adult) History of falling in the last 3 months, kj2 including since admission No falls in past 3 months (0 pts) Confusion or Disorientation No (0 pts) Intoxicated or Sedated No (0 pts) Impaired Gait No (0 pts) Mobility Assist Device Used No (0 pt) Altered Elimination No (0 pt) Score/Fall Risk Level 0 - 2 = Low Risk Maintained a safe environment, Hourly rounding (assess needs \T\ fall precautionary measures) done. Abuse screen: Denies threats or abuse. Denies injuries from another. Nutritional screening: No deficits noted. Tuberculosis screening: No symptoms or risk factors identified. Assessment: 00:38 General: see triage assessment. kj2 Vital Signs: 00:34 BP 112 / 70; Pulse 83; Resp 18; Temp 98; Pulse Ox 100% on R/A; Weight 63.5 kg; Height 5 kj2 ft. 7 in. ; Pain 8/10; 00:34 Body Mass Index 21.93 (63.50 kg, 170.18 cm) kj2 00:34 Pain Scale: Adult kj2 ED Course: 00:10 Patient arrived in ED. jj6 00:14 Tiera Driscoll FNP-C is [facility]. kb 00:14 Maurizio Ruiz MD is Attending Physician. kb 00:15 Patient has correct armband on for positive identification. Bed in low position. Call kj2 light in reach. Provided Education on: call light. 00:15 Arm band placed on Patient placed. kj2 00:15 No provider procedures requiring assistance completed. Patient did not have IV access kj2 during this emergency room visit. 00:29 Linette Erazo, RN is Primary Nurse. kj2 00:35 Triage completed. kj2 Administered Medications: 00:49 Drug: Ketorolac IM 30 mg IM once Route: IM; Site: right deltoid; kj2 00:50 Follow up: Response: Medication administered at discharge. kj2 00:49 Drug: Amoxicillin-Clavulanate PO 875 mg PO once Route: PO; kj2 00:50 Follow up: Response: Medication administered at discharge. kj2 Medication: 00:52 VIS not applicable for this client. kj2 Outcome: 00:20 Discharge ordered by . kb 00:53 Discharged to home ambulatory, kj2 00:53 Condition: stable 00:53 Discharge instructions given to patient, Instructed on discharge instructions, follow up and referral plans. medication usage, Demonstrated understanding of instructions, follow-up care, medications, Prescriptions given X 2, 00:54 Patient left the ED. kj2 Signatures: Tiera Driscoll FNP-C FNP-Naty Zamudio jj6 Linette Erazo, RN RN kj2
[2024-10-13 05:59] VITALS: BP 112/70; TEMP 98; O2SAT 100
== END 2024-10-13 00:54 | disposition home or self-care (01) ==
LOC: ER 00:08
DX: K04.7 Periapical abscess without sinus (principal)
CPT/HCPCS: 96372; 99284